=== PATIENT | female | born 1940 | race Caucasian/White ===

== ENCOUNTER 2018-06-02 11:02 | Inpatient (IN) | payer MEDICARE ==
[2018-06-02] MEDS ORDERED: KETOROLAC 30 MG/ML 1 ML VIAL IVP STA (11:25)
[2018-06-02] MEDS ORDERED: ACETAMINOPHEN IV (For NPO) 1,000 MG in EMPTY BAG 1 BAG IVPB STA (11:25)
[2018-06-02] MEDS ORDERED: SODIUM CHLORIDE 0.9% 1,000 ML IV STA ×2 (11:25→13:54)
--- NOTE | 2018-06-02 11:46 | ED ---
General Adult HPI - General Chief complaint: Weakness Stated complaint: Weakness Time Seen by Provider: 06/02/18 11:16 Source: patient, EMS, RN notes reviewed, old records reviewed Mode of arrival: EMS Limitations: physical limitation - History of Present Illness Initial comments: This is a 77-year-old female the ER for evaluation today. States she is presenting for evaluation of weakness, decreased activity level, decreased appetite. A she has complex medical history, coming in from extended care facility with mild assisted care. Patient's level of activity and daily activities is significantly diminished the last 2 days. Usually when she gets like this family is concerned about UTI as well as dehydration as well as patient's appetite. Patient himself denies any significant acute complaint or recent fevers - Related Data Home Medications Medication Instructions Recorded Confirmed ALPRAZolam [Xanax] 0.25 mg PO TID PRN 06/02/18 06/02/18 Acetaminophen Tab [Tylenol Tab] 650 mg PO Q6H PRN 06/02/18 06/02/18 Albuterol Inhaler [Ventolin Hfa 2 puff INHALATION RT-Q4H PRN 06/02/18 06/02/18 Inhaler] Ascorbic Acid [Vitamin C] 500 mg PO DAILY 06/02/18 06/02/18 Aspirin EC [Ecotrin Low Dose] 81 mg PO DAILY 06/02/18 06/02/18 Atorvastatin [Lipitor] 10 mg PO DAILY 06/02/18 06/02/18 Bisacodyl [Dulcolax] 10 mg RECTAL DAILY PRN 06/02/18 06/02/18 Calcium Carbonate [Tums Ultra 1,177 mg PO TID PRN 06/02/18 06/02/18 Strength] Cholecalciferol (Vitamin D3) 2,000 unit PO DAILY 06/02/18 06/02/18 [Vitamin D3] Diltiazem HCl [Diltiazem 12Hr ER] 60 mg PO Q12HR 06/02/18 06/02/18 Ferrous Gluconate 324 mg PO MOWEFR 06/02/18 06/02/18 Fluconazole [Diflucan] 150 mg PO TH 06/02/18 06/02/18 Furosemide [Lasix] 40 mg PO DAILY 06/02/18 06/02/18 HYDROcodone/APAP 5-325MG [[place] 1 tab PO Q6HR PRN 06/02/18 06/02/18 5-325] Insulin Glargine,Hum.rec.anlog 16 unit SQ DAILY 06/02/18 06/02/18 [Lantus Solostar] Insulin Lispro [humaLOG Kwikpen] See Protocol SQ ACHS 06/02/18 06/02/18 Ipratropium-Albuterol Nebulize 3 ml INHALATION RT-QID 06/02/18 06/02/18 [Duoneb 0.5 mg-3 mg/3 ml Soln] Magnesium Hydroxide [Milk of 2,400 mg PO DAILY PRN 06/02/18 06/02/18 Magnesia] Metoprolol Succinate (ER) [Toprol 50 mg PO DAILY 06/02/18 06/02/18 Xl] Nystatin 100,000Unit/gm Cream 1 applic TOPICAL BID PRN 06/02/18 06/02/18 [Mycostatin Cream] Pantoprazole Sodium [Protonix] 40 mg PO DAILY 06/02/18 06/02/18 Q-Tussin-Dm 10 ml PO Q4H PRN 06/02/18 06/02/18 Senexon-S 1 tab PO DAILY 06/02/18 06/02/18 Sertraline [Zoloft] 100 mg PO DAILY 06/02/18 06/02/18 Temazepam [Restoril] 15 mg PO HS PRN 06/02/18 06/02/18 Allergies Allergy/AdvReac Type Severity Reaction Status Date / Time Iodinated Contrast- Oral and Allergy Unknown Verified 06/02/18 11:55 IV Dye Penicillins Allergy Unknown Verified 06/02/18 11:55 vancomycin Allergy Unknown Verified 06/02/18 11:55 Review of Systems ROS Statement: Those systems with pertinent positive or pertinent negative responses have been documented in the HPI. ROS Other: All systems not noted in ROS Statement are negative. Past Medical History Past Medical History: Coronary Artery Disease (CAD), Diabetes Mellitus, Hyperlipidemia, Hypertension History of Any Multi-Drug Resistant Organisms: None Reported Past Surgical History: Orthopedic Surgery Additional Past Surgical History / Comment(s): kerwin eye surgery Past Psychological History: Anxiety, Depression Smoking Status: Former smoker Past Alcohol Use History: None Reported Past Drug Use History: None Reported General Exam Limitations: physical limitation General appearance: alert, in no apparent distress, obese Head exam: Present: atraumatic, normocephalic, normal inspection Eye exam: Present: normal appearance, PERRL, EOMI. Absent: scleral icterus, conjunctival injection, periorbital swelling ENT exam: Present: normal exam, mucous membranes moist Neck exam: Present: normal inspection. Absent: tenderness, meningismus, lymphadenopathy Respiratory exam: Present: normal lung sounds bilaterally. Absent: respiratory distress, wheezes, rales, rhonchi, stridor Cardiovascular Exam: Present: regular rate, normal rhythm, normal heart sounds. Absent: systolic murmur, diastolic murmur, rubs, gallop, clicks GI/Abdominal exam: Present: soft, normal bowel sounds. Absent: distended, tenderness, guarding, rebound, rigid Extremities exam: Present: normal inspection, full ROM, normal capillary refill. Absent: tenderness, pedal edema, joint swelling, calf tenderness Back exam: Present: normal inspection Neurological exam: Present: alert, oriented X3, CN II-XII intact Psychiatric exam: Present: normal affect, normal mood Skin exam: Present: warm, dry, intact, normal color. Absent: rash Course Vital Signs 06/02/18 06/02/18 06/02/18 11:11 11:21 12:14 Temperature 97.9 F Pulse Rate 60 59 L Respiratory 20 22 Rate Blood Pressure 121/67 122/62 O2 Sat by Pulse 88 L 95 97 Oximetry 06/02/18 13:00 Temperature 97.4 F L Pulse Rate 54 L Respiratory 18 Rate Blood Pressure 133/74 O2 Sat by Pulse 95 Oximetry EKG Findings - EKG Comments: EKG Findings:: EKG shows sinus bradycardia rate 55, HI 192, QRS 122, QTc 451 Medical Decision Making - Medical Decision Making 37 female the ER for evaluation, patient has positive UTI, positive weakness. Otherwise lab values are within normal limits. Patient will be admitted for IV hydration and IV antibiotics increase of activity and PT - Lab Data Result diagrams: 06/02/18 11:15 06/02/18 11:15 Lab Results 06/02/18 06/02/18 06/02/18 Range/Units 11:15 11:15 11:15 WBC 5.4 (3.8-10.6) k/uL RBC 4.29 (3.80-5.40) m/uL Hgb 11.3 L (11.4-16.0) gm/dL Hct 37.3 (34.0-46.0) % MCV 86.9 (80.0-100.0) fL MCH 26.3 (25.0-35.0) pg MCHC 30.3 L (31.0-37.0) g/dL RDW 15.4 (11.5-15.5) % Plt Count 202 (150-450) k/uL Neutrophils % 72 % Lymphocytes % 14 % Monocytes % 7 % Eosinophils % 4 % Basophils % 2 % Neutrophils # 3.9 (1.3-7.7) k/uL Lymphocytes # 0.8 L (1.0-4.8) k/uL Monocytes # 0.4 (0-1.0) k/uL Eosinophils # 0.2 (0-0.7) k/uL Basophils # 0.1 (0-0.2) k/uL Hypochromasia Marked PT (9.0-12.0) sec INR (<1.2) APTT (22.0-30.0) sec Sodium 139 (137-145) mmol/L Potassium 4.4 (3.5-5.1) mmol/L Chloride 106 (98-107) mmol/L Carbon Dioxide 28 (22-30) mmol/L Anion Gap 5 mmol/L BUN 32 H (7-17) mg/dL Creatinine 0.80 (0.52-1.04) mg/dL Est GFR (CKD-EPI)AfAm 82 (>60 ml/min/1.73 sqM) Est GFR (CKD-EPI)NonAf 72 (>60 ml/min/1.73 sqM) Glucose 186 H (74-99) mg/dL Calcium 9.1 (8.4-10.2) mg/dL Phosphorus 4.0 (2.5-4.5) mg/dL Magnesium 1.5 L (1.6-2.3) mg/dL Total Bilirubin 1.1 (0.2-1.3) mg/dL AST 38 H (14-36) U/L ALT 34 (9-52) U/L Alkaline Phosphatase 92 (38-126) U/L Total Creatine Kinase 136 H (30-135) U/L CK-MB (CK-2) 3.1 H* (0.0-2.4) ng/mL CK-MB (CK-2) Rel Index 2.3 Troponin I 0.043 H* (0.000-0.034) ng/mL Total Protein 6.2 L (6.3-8.2) g/dL Albumin 3.4 L (3.5-5.0) g/dL Urine Color Urine Appearance (Clear) Urine pH (5.0-8.0) Ur Specific [place] (1.001-1.035) Urine Protein (Negative) Urine Glucose (UA) (Negative) Urine Ketones (Negative) Urine Blood (Negative) Urine Nitrite (Negative) Urine Bilirubin (Negative) Urine Urobilinogen (<2.0) mg/dL Ur Leukocyte Esterase (Negative) Urine RBC (0-5) /hpf Urine WBC (0-5) /hpf Ur Squamous Epith Cells (0-4) /hpf Urine Mucus (None) /hpf Acetaminophen <10.0 ug/mL 06/02/18 06/02/18 Range/Units 11:15 11:49 WBC (3.8-10.6) k/uL RBC (3.80-5.40) m/uL Hgb (11.4-16.0) gm/dL Hct (34.0-46.0) % MCV (80.0-100.0) fL MCH (25.0-35.0) pg MCHC (31.0-37.0) g/dL RDW (11.5-15.5) % Plt Count (150-450) k/uL Neutrophils % % Lymphocytes % % Monocytes % % Eosinophils % % Basophils % % Neutrophils # (1.3-7.7) k/uL Lymphocytes # (1.0-4.8) k/uL Monocytes # (0-1.0) k/uL Eosinophils # (0-0.7) k/uL Basophils # (0-0.2) k/uL Hypochromasia PT 11.6 (9.0-12.0) sec INR 1.2 H (<1.2) APTT 22.9 (22.0-30.0) sec Sodium (137-145) mmol/L Potassium (3.5-5.1) mmol/L Chloride (98-107) mmol/L Carbon Dioxide (22-30) mmol/L Anion Gap mmol/L BUN (7-17) mg/dL Creatinine (0.52-1.04) mg/dL Est GFR (CKD-EPI)AfAm (>60 ml/min/1.73 sqM) Est GFR (CKD-EPI)NonAf (>60 ml/min/1.73 sqM) Glucose (74-99) mg/dL Calcium (8.4-10.2) mg/dL Phosphorus (2.5-4.5) mg/dL Magnesium (1.6-2.3) mg/dL Total Bilirubin (0.2-1.3) mg/dL AST (14-36) U/L ALT (9-52) U/L Alkaline Phosphatase (38-126) U/L Total Creatine Kinase (30-135) U/L CK-MB (CK-2) (0.0-2.4) ng/mL CK-MB (CK-2) Rel Index Troponin I (0.000-0.034) ng/mL Total Protein (6.3-8.2) g/dL Albumin (3.5-5.0) g/dL Urine Color Yellow Urine Appearance Clear (Clear) Urine pH 5.0 (5.0-8.0) Ur Specific [place] 1.008 (1.001-1.035) Urine Protein Negative (Negative) Urine Glucose (UA) Negative (Negative) Urine Ketones Negative (Negative) Urine Blood Negative (Negative) Urine Nitrite Positive H (Negative) Urine Bilirubin Negative (Negative) Urine Urobilinogen <2.0 (<2.0) mg/dL Ur Leukocyte Esterase Negative (Negative) Urine RBC 1 (0-5) /hpf Urine WBC <1 (0-5) /hpf Ur Squamous Epith Cells <1 (0-4) /hpf Urine Mucus Rare H (None) /hpf Acetaminophen ug/mL Disposition Clinical Impression: Dehydration, Weakness, UTI (urinary tract infection) Disposition: ADMITTED IP TO THIS HOSP Condition: Good Is patient prescribed a controlled substance at d/c from ED?: No
[2018-06-02 11:58] LABS: Basophils # (A) 0.1 k/uL (0-0.2); Basophils % (A) 2 %; Eosinophils # (A) 0.2 k/uL (0-0.7); Eosinophils % (A) 4 %; HCT 37.3 % (34.0-46.0); HGB 11.3 gm/dL (11.4-16.0); Hypochromasia Marked; Lymphocytes # (A) 0.8 k/uL (1.0-4.8); Lymphocytes % (A) 14 %; MCH 26.3 pg (25.0-35.0); MCHC 30.3 g/dL (31.0-37.0); MCV 86.9 fL (80.0-100.0); Mean Platelet Volume 7.9; Monocytes # (A) 0.4 k/uL (0-1.0); Monocytes % (A) 7 %; Neutrophils # (A) 3.9 k/uL (1.3-7.7); Neutrophils % (A) 72 %; Platelet Count 202 k/uL (150-450); RBC 4.29 m/uL (3.80-5.40); RDW 15.4 % (11.5-15.5); WBC 5.4 k/uL (3.8-10.6)
[2018-06-02 12:05] LABS: ALT 34 U/L (9-52); AST 38 U/L (14-36); Acetaminophen <10.0 ug/mL; Albumin 3.4 g/dL (3.5-5.0); Alkaline Phosphatase 92 U/L (38-126); Anion Gap 5 mmol/L; Blood Urea Nitrogen 32 mg/dL (7-17); Calcium 9.1 mg/dL (8.4-10.2); Carbon Dioxide 28 mmol/L (22-30); Chloride 106 mmol/L (98-107); Glucose 186 mg/dL (74-99); Magnesium 1.5 mg/dL (1.6-2.3); Potassium 4.4 mmol/L (3.5-5.1); Sodium 139 mmol/L (137-145); Total Bilirubin 1.1 mg/dL (0.2-1.3); Total Protein 6.2 g/dL (6.3-8.2)
[2018-06-02 12:24] LABS: INR 1.2 (<1.2); Partial Thromboplastin Time 22.9 sec (22.0-30.0); Prothrombin Time 11.6 sec (9.0-12.0)
[2018-06-02 12:25] LABS: Appearance,Urine Clear (Clear); Bilirubin,Urine Negative (Negative); Blood,Urine Negative (Negative); Color,Urine Yellow; Glucose,Urine (UA) Negative (Negative); Ketones,Urine Negative (Negative); Leukocyte Esterase,Urine Negative (Negative); Mucus,Urine Rare /hpf; Nitrite,Urine Positive (Negative); Protein,Urine Negative (Negative); RBC,Urine 1 /hpf (0-5); Specific Gravity,Urine 1.008 (1.001-1.035); Squamous Epithelial Cell,Urine <1 /hpf (0-4); Urobilinogen,Urine <2.0 mg/dL (<2.0); WBC,Urine <1 /hpf (0-5)
[2018-06-02 12:28] LABS: Creatine Kinase MB 3.1 ng/mL (0.0-2.4); Troponin I 0.043 ng/mL (0.000-0.034)
[2018-06-02] MEDS ORDERED: cefTRIAXone IN SWFI 1,000 MG/10 ML SYRINGE IVP STA (13:32)
[2018-06-02] MEDS ORDERED: ACETAMINOPHEN TAB 325 MG TAB PO PRN (14:39)
[2018-06-02] MEDS ORDERED: ONDANSETRON 4 MG/2 ML VIAL IVP PRN (14:39)
[2018-06-02] MEDS ORDERED: HYDROcodone/APAP 5-325MG 1 EACH TAB PO PRN (14:40)
[2018-06-02] MEDS ORDERED: CALCIUM CARBONATE 500 MG CHEWABLE PO PRN (14:40)
[2018-06-02] MEDS ORDERED: ALPRAZolam 0.25 MG TAB PO PRN (14:40)
[2018-06-02] MEDS ORDERED: NYSTATIN 100,000UNIT/GM CREAM 30 GM TUBE TOPICAL PRN (14:40)
[2018-06-02] MEDS ORDERED: Potassium Replacement Protocol 1 EACH MISC MISCELLANE PRN (14:45)
--- NOTE | 2018-06-02 14:53 | P.HPIM ---
History of Present Illness H&P Date: 06/02/18 Chief Complaint: Generalized weakness This is a 77-year-old female with complex past medical history noted below significant for morbid obesity who presented to the emergency room from a local assisted living facility with progressive weakness. Over the last few days, patient has been feeling progressively weak. She usually needs assistance with transfer from her bed to the chair. Yesterday one person assist was not enough and this morning patient requires 2 people assist as well. She was sent to the emergency room for further evaluation. Patient does not have any specific concerns otherwise. There is no neurological focal deficits. No headache or chest pain. No shortness of breath. She is just feeling generally weak. No fevers or chills. No abdominal pain. No urinary symptoms. Patient was evaluated in the emergency room and her lab work was generally within acceptable range. She was noted to be slightly bradycardic with a heart rate in the 50s and sinus bradycardia. She was also noted to have a mildly elevated troponin. Patient herself denies any chest pain or shortness of breath. 12- lead ECG showed no acute ischemic changes. Urinalysis show some evidence of infection but patient is incontinent. Review of Systems Review of system: 14 points review of systems were obtained and were negative except to what were mentioned in the HPI. Past Medical History Past Medical History: Coronary Artery Disease (CAD), Diabetes Mellitus, Hyperlipidemia, Hypertension History of Any Multi-Drug Resistant Organisms: None Reported Past Surgical History: Orthopedic Surgery Additional Past Surgical History / Comment(s): kerwin eye surgery Past Psychological History: Anxiety, Depression Smoking Status: Former smoker Past Alcohol Use History: None Reported Past Drug Use History: None Reported Medications and Allergies Home Medications Medication Instructions Recorded Confirmed Type ALPRAZolam [Xanax] 0.25 mg PO TID PRN 06/02/18 06/02/18 History Acetaminophen Tab [Tylenol Tab] 650 mg PO Q6H PRN 06/02/18 06/02/18 History Albuterol Inhaler [Ventolin Hfa 2 puff INHALATION RT-Q4H PRN 06/02/18 06/02/18 History Inhaler] Ascorbic Acid [Vitamin C] 500 mg PO DAILY 06/02/18 06/02/18 History Aspirin EC [Ecotrin Low Dose] 81 mg PO DAILY 06/02/18 06/02/18 History Atorvastatin [Lipitor] 10 mg PO DAILY 06/02/18 06/02/18 History Bisacodyl [Dulcolax] 10 mg RECTAL DAILY PRN 06/02/18 06/02/18 History Calcium Carbonate [Tums Ultra 1,177 mg PO TID PRN 06/02/18 06/02/18 History Strength] Cholecalciferol (Vitamin D3) 2,000 unit PO DAILY 06/02/18 06/02/18 History [Vitamin D3] Diltiazem HCl [Diltiazem 12Hr ER] 60 mg PO Q12HR 06/02/18 06/02/18 History Ferrous Gluconate 324 mg PO MOWEFR 06/02/18 06/02/18 History Fluconazole [Diflucan] 150 mg PO TH 06/02/18 06/02/18 History Furosemide [Lasix] 40 mg PO DAILY 06/02/18 06/02/18 History HYDROcodone/APAP 5-325MG [[place] 1 tab PO Q6HR PRN 06/02/18 06/02/18 History 5-325] Insulin Glargine,Hum.rec.anlog 16 unit SQ DAILY 06/02/18 06/02/18 History [Lantus Solostar] Insulin Lispro [humaLOG Kwikpen] See Protocol SQ ACHS 06/02/18 06/02/18 History Ipratropium-Albuterol Nebulize 3 ml INHALATION RT-QID 06/02/18 06/02/18 History [Duoneb 0.5 mg-3 mg/3 ml Soln] Magnesium Hydroxide [Milk of 2,400 mg PO DAILY PRN 06/02/18 06/02/18 History Magnesia] Metoprolol Succinate (ER) [Toprol 50 mg PO DAILY 06/02/18 06/02/18 History Xl] Nystatin 100,000Unit/gm Cream 1 applic TOPICAL BID PRN 06/02/18 06/02/18 History [Mycostatin Cream] Pantoprazole Sodium [Protonix] 40 mg PO DAILY 06/02/18 06/02/18 History Q-Tussin-Dm 10 ml PO Q4H PRN 06/02/18 06/02/18 History Senexon-S 1 tab PO DAILY 06/02/18 06/02/18 History Sertraline [Zoloft] 100 mg PO DAILY 06/02/18 06/02/18 History Temazepam [Restoril] 15 mg PO HS PRN 06/02/18 06/02/18 History Allergies Allergy/AdvReac Type Severity Reaction Status Date / Time Iodinated Contrast- Oral and Allergy Unknown Verified 06/02/18 11:55 IV Dye Penicillins Allergy Unknown Verified 06/02/18 11:55 vancomycin Allergy Unknown Verified 06/02/18 11:55 Physical Exam Vitals: Vital Signs Temp Pulse Resp BP Pulse Ox 06/02/18 13:00 97.4 F L 54 L 18 133/74 95 06/02/18 12:14 59 L 22 122/62 97 06/02/18 11:21 95 06/02/18 11:11 97.9 F 60 20 121/67 88 L Intake and Output 06/01/18 06/02/18 06/02/18 22:59 06:59 14:59 Other: Weight 113.398 kg General: The patient is awake and alert, in no distress Eye: there is normal conjunctiva bilaterally. Neck: The neck is supple, there is no JVD. Cardiovascular: Heart sounds are distant. Normal S1-S2, no S3-S4, no murmurs. Respiratory: Lungs clear to anterior chest auscultation bilaterally Gastrointestinal: Abdomen is very obese, soft, nontender Musculoskeletal: There is no pedal edema. Neurological:. Speech is normal. Skin: Skin is warm and dry. There is evidence of chronic venous stasis on both legs with area of worsening erythema and a small ulceration on the anterior aspect of the left mid chin. There is no drainage or pus noted. Results CBC & Chem 7: 06/02/18 11:15 06/02/18 11:15 Labs: Abnormal Lab Results - Last 24 Hours (Table) 06/02/18 06/02/18 06/02/18 Range/Units 11:15 11:15 11:15 Hgb 11.3 L (11.4-16.0) gm/dL MCHC 30.3 L (31.0-37.0) g/dL Lymphocytes # 0.8 L (1.0-4.8) k/uL INR (<1.2) BUN 32 H (7-17) mg/dL Glucose 186 H (74-99) mg/dL Magnesium 1.5 L (1.6-2.3) mg/dL AST 38 H (14-36) U/L Total Creatine Kinase 136 H (30-135) U/L CK-MB (CK-2) 3.1 H* (0.0-2.4) ng/mL Troponin I 0.043 H* (0.000-0.034) ng/mL Total Protein 6.2 L (6.3-8.2) g/dL Albumin 3.4 L (3.5-5.0) g/dL Urine Nitrite (Negative) Urine Mucus (None) /hpf 06/02/18 06/02/18 Range/Units 11:15 11:49 Hgb (11.4-16.0) gm/dL MCHC (31.0-37.0) g/dL Lymphocytes # (1.0-4.8) k/uL INR 1.2 H (<1.2) BUN (7-17) mg/dL Glucose (74-99) mg/dL Magnesium (1.6-2.3) mg/dL AST (14-36) U/L Total Creatine Kinase (30-135) U/L CK-MB (CK-2) (0.0-2.4) ng/mL Troponin I (0.000-0.034) ng/mL Total Protein (6.3-8.2) g/dL Albumin (3.5-5.0) g/dL Urine Nitrite Positive H (Negative) Urine Mucus Rare H (None) /hpf Assessment and Plan Assessment: 1. Sinus bradycardia, may be attributed to Cardizem and Toprol-XL use. I would decrease her Toprol-XL dose from 50-25 mg daily. I would continue telemetry monitoring. We will check thyroid function tests. 2. Elevated troponin: Most likely non-thrombotic troponin leak. Patient denies any chest pain. 12-lead ECG showed no acute ischemic changes. I would obtain repeat troponin. I would order echocardiogram. Consult cardiology for further evaluation. Continue telemetry monitoring. Patient sister informed me that patient had underlying coronary artery disease but no prior left heart catheterization. She was seen by cardiology at [facility] previously 3. Non-complicated urinary tract infection, given 1 dose of IV ceftriaxone in the emergency room. Antibiotic switched to IV cefazolin. Awaiting urine culture. 4. Bilateral lower extremity cellulitis/chronic venous stasis: Continue IV cefazolin. Infectious disease consulted for further evaluation and recommendations 5. Type II diabetes mellitus, continue home dose of insulin. Add sliding scale. A1c ordered 6. Morbid obesity 7. Mixed hyperlipidemia on Lipitor 8. Generalized anxiety disorder, maintained on Xanax 3 times a day. I would discontinue nighttime off Restoril 9. Major depressive disorder: Continue home medication 10. Physical debility, PT/OT/high school social science teacher consulted. Patient may benefit from subacute rehab
[2018-06-02 15:48] LABS: Glucose,Whole Blood 151 mg/dL (75-99)
--- NOTE | 2018-06-02 17:21 | ECHOF ---
Referral Reason:Elevated troponin, lower extremity edema MEASUREMENTS -------- HEIGHT: 162.6 cm WEIGHT: 113.4 kg BP: 133/74 RVIDd: 3.7 cm (< 3.3) IVSd: 1.3 cm (0.6 - 1.1) LVIDd: 4.9 cm (3.9 - 5.3) LVPWd: 1.3 cm (0.6 - 1.1) IVSs: 1.9 cm LVIDs: 3.5 cm LVPWs: 1.9 cm LA Diam: 4.1 cm (2.7 - 3.8) LAESV Index (A-L): 55.23 ml/m Ao Diam: 3.1 cm (2.0 - 3.7) AV Cusp: 1.3 cm (1.5 - 2.6) MV EXCURSION: 18.807 mm (> 18.000) MV EF SLOPE: 44 mm/s (70 - 150) EPSS: 0.2 cm MV E Daniel: 1.67 m/s MV DecT: 225 ms MV A Daniel: 0.89 m/s MV E/A Ratio: 1.87 AV maxP.27 mmHg AV meanP.64 mmHg RAP: 15.00 mmHg RVSP: 78.55 mmHg FINDINGS -------- Sinus rhythm. This was a technically adequate study. The left ventricular size is normal. There is mild concentric left ventricular hypertrophy. Overa ll left ventricular systolic function is normal with, an EF between 55 - 60 %. The right ventricle is mildly enlarged. LA is severely dilated >40 ml/m2 The right atrium is normal in size. There is moderate to severe aortic valve sclerosis. Trace to mild aortic regurgitation. There is mild aortic stenosis present. Peak/mean gradient across the Aortic Valve is 25.27mmHg / 12.64mmHg. The mitral valve leaflets are moderately thickened. Severe mitral annular calcification present. Moderate mitral regurgitation is present. The peak and mean MV gradients are 13.43mmHg 3.55mmHg as measured by doppler. Severe tricuspid regurgitation present. There is severe pulmonary hypertension. The right ventric ular systolic pressure, as measured by Doppler, is 78.55mmHg. Moderate pulmonic regurgitation. The aortic root size is normal. The inferior vena cava is dilated with no significant inspiratory collapse which is consistent estima william right atrial pressure of >15 mmHg. There is no pericardial effusion. CONCLUSIONS -------- 1. Sinus rhythm. 2. This was a technically adequate study. 3. The left ventricular size is normal. 4. There is mild concentric left ventricular hypertrophy. 5. Overall left ventricular systolic function is normal with, an EF between 55 - 60 %. 6. The right ventricle is mildly enlarged. 7. LA is severely dilated >40 ml/m2 8. The right atrium is normal in size. 9. There is moderate to severe aortic valve sclerosis. 10. Trace to mild aortic regurgitation. 11. There is mild aortic stenosis present. 12. Peak/mean gradient across the Aortic Valve is 25.27mmHg / 12.64mmHg. 13. The mitral valve leaflets are moderately thickened. 14. Severe mitral annular calcification present. 15. Moderate mitral regurgitation is present. 16. The peak and mean MV gradients are 13.43mmHg 3.55mmHg as measured by doppler. 17. Severe tricuspid regurgitation present. 18. There is severe pulmonary hypertension. 19. The right ventricular systolic pressure, as measured by Doppler, is 78.55mmHg. 20. Moderate pulmonic regurgitation. 21. The aortic root size is normal. 22. The inferior vena cava is dilated with no significant inspiratory collapse which is consistent es timated right atrial pressure of >15 mmHg. 23. There is no pericardial effusion. 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
[2018-06-02] MEDS: INSULIN ASPART 100 UNIT/ML 1 ML 10 ML VIAL SQ SCH ×2 (18:43→21:40)
[2018-06-02] MEDS: IPRATROPIUM-ALBUTEROL 3 ML NEB INHALATION SCH ×2 (20:01→20:05)
--- NOTE | 2018-06-02 20:40 | CONS ---
CONSULTATION DATE OF SERVICE: 06/02/2018. REASON FOR CONSULTATION: 1. UTI. 2. Left leg wound cellulitis. 3. Antibiotic allergy. HISTORY OF PRESENT ILLNESS: The patient is a 77-year-old female who was brought in to the ER at [facility] with chief complaints of not feeling well, feeling run down and thought she may have a urinary tract infection, as the patient has some burning of urine, but no significant frequency, suprapubic discomfort, any the flank pain, nausea or vomiting. The patient also has been scratching her left leg and has led to some superficial ulceration. Did have minimal drainage and pain at that left leg site, more of a dull aching pain, 2/10-3/10 and no radiation. With these symptoms, the patient has been evaluated by the ER physician. On arrival to the ER, the patient has been afebrile. She noticed to have a normal white count. Urine was mildly positive for nitrate positive, rare WBC. No chest x-ray has been done. The patient has been admitted to hospital to monitor her condition. The patient started on cefazolin 2 g q.12 and Infectious Disease was consulted for further recommendation of antibiotic therapy. The patient did receive a dose of Rocephin in the ER as well, though. REVIEW OF SYSTEMS: CONSTITUTIONALLY: Positive for weakness. Denies any high-grade fever. EYES: No complaint. ENT: No complaint. RESPIRATORY: No complaint. CARDIOVASCULAR: No complaint. GENITOURINARY: As per HPI. GASTROINTESTINAL: No complaint. MUSCULOSKELETAL: No complaint. INTEGUMENTARY: As per HPI. PSYCHOLOGICAL: No complaint. ENDOCRINE: No complaint. NEUROLOGIC: No complaint. PAST MEDICAL HISTORY: Hypertension, hyperlipidemia, diabetes mellitus, coronary artery disease, anxiety, depression. PAST SURGICAL HISTORY: Bilateral eye surgery. SOCIAL HISTORY: Remote history of smoking. No drinking or drug use. FAMILY HISTORY: No pertinent findings noticed. ALLERGIES: To PENICILLIN; however, Rocephin is not any problem. Also allergic to VANCOMYCIN and IODINATED CONTRAST DYE. MEDICATIONS: Include the patient is currently on: 1. Zoloft. 2. Protonix. 3. Zofran. 4. Nystatin cream. 5. Toprol-XL. 6. Levemir. 7. NovoLog. 8. Lasix. 9. Lovenox. 10.Cefazolin 2 g q.12. 11.Tums. 12.Lipitor. 13.Aspirin. 14.Xanax. 15.DuoNeb. 16.[place]. 17.Tylenol. EXAMINATION: Her blood pressure was 60/72 with a pulse of 80, temperature is 97.4. She is 98% on 3L nasal cannula. General description is an elderly female lying in bed in no distress. No tachypnea or accessory muscle of respiration use. HEENT shows slight pallor. No scleral icterus. Oral mucous membranes dry. No pharyngeal erythema or thrush. NECK: Trachea central. No thyromegaly. LUNGS: Unlabored breathing. Clear to auscultation anteriorly. No wheeze or crackle. HEART: S1, S2. Regular rate and rhythm. ABDOMEN: Soft, no tenderness. No guarding or rigidity. EXTREMITIES: Left leg with minimal erythema with a pressure heel ulceration and drainage on the dressing. No foul smelling. SKIN: No rash or mass palpable. Neurologically, the patient is awake, alert, oriented x3. Mood and affect normal. LABS: Hemoglobin 11.8, white count of 5.4. BUN of 32, creatinine 0.80. Electrolytes have been normal. Liver enzymes are normal. Troponin slightly elevated. Urine shows nitrite positive only. DIAGNOSTIC IMPRESSION AND PLAN: 1. Patient admitted to hospital with generalized weakness, which is likely multifactorial in this patient who did have urinary symptoms of burning; however, the urine is not significantly positive. The patient also has superficial ulceration with minimal cellulitis not entirely excluded, likely from a gram- positive skin adrien. 2. The patient does have multiple antibiotic allergies that does limit the number of antibiotics that could be safely used. She did have history of PENICILLIN; however, tolerated Rocephin without any problem. PLAN: 1. Will keep the patient on cefazolin; however, change the dose to every 8 hours in view of her normal kidney function. 2. Frederic the area of redness on the left leg. 3. Depending upon clinical response as well as culture, will adjust her medications further if needed. Thank you for this consultation. Will follow this patient along with you. MMODL / IJN: [id number] /
[2018-06-02 20:52] LABS: Glucose,Whole Blood 175 mg/dL (75-99)
[2018-06-02] MEDS ORDERED: ceFAZolin IN SWFI 2 GM/20 ML SYRINGE IVP SCH (21:00)
[2018-06-02] MEDS: DILTIAZEM HCL PO SCH (21:43)
[2018-06-03 06:01] LABS: Glucose,Whole Blood 124 mg/dL (75-99)
[2018-06-03] MEDS: INSULIN ASPART 100 UNIT/ML 1 ML 10 ML VIAL SQ SCH ×4 (06:21→21:09)
[2018-06-03] MEDS: PANTOPRAZOLE 40 MG TABLET PO SCH (06:34)
[2018-06-03 07:19] LABS: Basophils # (A) 0.1 k/uL (0-0.2); Basophils % (A) 1 %; Eosinophils # (A) 0.3 k/uL (0-0.7); Eosinophils % (A) 6 %; HCT 38.5 % (34.0-46.0); HGB 11.2 gm/dL (11.4-16.0); Hypochromasia Marked; Lymphocytes % (A) 20 %; MCH 25.5 pg (25.0-35.0); MCHC 29.1 g/dL (31.0-37.0); MCV 87.5 fL (80.0-100.0); Mean Platelet Volume 7.8; Monocytes # (A) 0.4 k/uL (0-1.0); Monocytes % (A) 8 %; Neutrophils % (A) 63 %; Platelet Count 188 k/uL (150-450); RDW 15.3 % (11.5-15.5); WBC 4.8 k/uL (3.8-10.6)
[2018-06-03 07:36] LABS: Calcium 8.9 mg/dL (8.4-10.2); Magnesium 1.5 mg/dL (1.6-2.3); Potassium 4.4 mmol/L (3.5-5.1)
[2018-06-03 08:23] LABS: Glucose,Whole Blood 137 mg/dL (75-99)
[2018-06-03] MEDS ORDERED: cefTRIAXone IN SWFI 1,000 MG/10 ML SYRINGE IVP SCH (09:00)
[2018-06-03] MEDS: CHOLECALCIFEROL 1,000 UNIT TAB PO SCH (09:17)
[2018-06-03] MEDS: ASPIRIN 81 MG PO SCH (09:17)
[2018-06-03] MEDS: ceFAZolin IN SWFI 2 GM/20 ML SYRINGE IVP SCH ×3 (09:17→23:22)
[2018-06-03] MEDS: ATORVASTATIN 10 MG TAB PO SCH (09:17)
[2018-06-03] MEDS: ASCORBIC ACID 500 MG TAB PO SCH (09:17)
[2018-06-03] MEDS: SERTRALINE 100 MG TAB PO SCH (09:18)
[2018-06-03] MEDS: ENOXAPARIN 40 MG/0.4 ML SYRINGE SQ SCH (09:18)
[2018-06-03] MEDS: FUROSEMIDE 40 MG TAB PO SCH (09:18)
[2018-06-03] MEDS: INSULIN DETEMIR 100 UNIT/ML 10 ML VIAL SQ SCH (09:20)
[2018-06-03] MEDS: IPRATROPIUM-ALBUTEROL 3 ML NEB INHALATION SCH ×4 (09:39→19:28)
--- NOTE | 2018-06-03 10:39 | P.PN ---
Subjective Progress Note Date: 06/03/18 Principal diagnosis: UTI and bradycardia Patient is doing a lot better today. Her mentation is back to baseline. No acute events overnight. Objective - Vital Signs Vital signs: Vital Signs Temp 97.7 F 06/03/18 09:15 Pulse 60 06/03/18 09:49 Resp 18 06/03/18 09:15 BP 130/73 06/03/18 09:15 Pulse Ox 97 06/03/18 09:15 Intake & Output 06/02/18 06/03/18 06/03/18 18:59 06:59 18:59 Intake Total 1000 240 Balance 1000 240 Weight 113.398 kg 121 kg Intake: Amount of Fluid Infused ( 1000 ml) Oral 240 Other: # Voids 1 - Exam General: The patient is awake and alert, in no distress Eye: there is normal conjunctiva bilaterally. Neck: The neck is supple, there is no JVD. Cardiovascular: Normal S1-S2, no S3-S4, no murmurs. Respiratory: Lungs clear to auscultation bilaterally Gastrointestinal: Abdomen is soft, nontender Neurological:. Speech is normal. Skin: Skin is warm and dry - Labs CBC & Chem 7: 06/03/18 06:59 06/03/18 06:59 Labs: Abnormal Lab Results - Last 24 Hours (Table) 06/02/18 06/02/18 06/02/18 Range/Units 11:15 11:15 11:15 Hgb 11.3 L (11.4-16.0) gm/dL MCHC 30.3 L (31.0-37.0) g/dL Lymphocytes # 0.8 L (1.0-4.8) k/uL INR (<1.2) Chloride (98-107) mmol/L BUN 32 H (7-17) mg/dL Glucose 186 H (74-99) mg/dL POC Glucose (mg/dL) (75-99) mg/dL Magnesium 1.5 L (1.6-2.3) mg/dL AST 38 H (14-36) U/L Total Creatine Kinase 136 H (30-135) U/L CK-MB (CK-2) 3.1 H* (0.0-2.4) ng/mL Troponin I 0.043 H* (0.000-0.034) ng/mL Total Protein 6.2 L (6.3-8.2) g/dL Albumin 3.4 L (3.5-5.0) g/dL Urine Nitrite (Negative) Urine Mucus (None) /hpf 06/02/18 06/02/18 06/02/18 Range/Units 11:15 11:49 15:47 Hgb (11.4-16.0) gm/dL MCHC (31.0-37.0) g/dL Lymphocytes # (1.0-4.8) k/uL INR 1.2 H (<1.2) Chloride (98-107) mmol/L BUN (7-17) mg/dL Glucose (74-99) mg/dL POC Glucose (mg/dL) 151 H (75-99) mg/dL Magnesium (1.6-2.3) mg/dL AST (14-36) U/L Total Creatine Kinase (30-135) U/L CK-MB (CK-2) (0.0-2.4) ng/mL Troponin I (0.000-0.034) ng/mL Total Protein (6.3-8.2) g/dL Albumin (3.5-5.0) g/dL Urine Nitrite Positive H (Negative) Urine Mucus Rare H (None) /hpf 06/02/18 06/02/18 06/03/18 Range/Units 17:28 20:48 05:59 Hgb (11.4-16.0) gm/dL MCHC (31.0-37.0) g/dL Lymphocytes # (1.0-4.8) k/uL INR (<1.2) Chloride (98-107) mmol/L BUN (7-17) mg/dL Glucose (74-99) mg/dL POC Glucose (mg/dL) 175 H 124 H (75-99) mg/dL Magnesium (1.6-2.3) mg/dL AST (14-36) U/L Total Creatine Kinase (30-135) U/L CK-MB (CK-2) (0.0-2.4) ng/mL Troponin I 0.049 H* (0.000-0.034) ng/mL Total Protein (6.3-8.2) g/dL Albumin (3.5-5.0) g/dL Urine Nitrite (Negative) Urine Mucus (None) /hpf 06/03/18 06/03/18 06/03/18 Range/Units 06:59 06:59 08:04 Hgb 11.2 L (11.4-16.0) gm/dL MCHC 29.1 L (31.0-37.0) g/dL Lymphocytes # (1.0-4.8) k/uL INR (<1.2) Chloride 109 H (98-107) mmol/L BUN 33 H (7-17) mg/dL Glucose 112 H (74-99) mg/dL POC Glucose (mg/dL) 137 H (75-99) mg/dL Magnesium 1.5 L (1.6-2.3) mg/dL AST (14-36) U/L Total Creatine Kinase (30-135) U/L CK-MB (CK-2) (0.0-2.4) ng/mL Troponin I (0.000-0.034) ng/mL Total Protein (6.3-8.2) g/dL Albumin (3.5-5.0) g/dL Urine Nitrite (Negative) Urine Mucus (None) /hpf Microbiology - Last 24 Hours (Table) 06/02/18 11:49 Urine Culture - Preliminary Urine,Catheterized Assessment and Plan Assessment: 1. Sinus bradycardia, may be attributed to Cardizem and Toprol-XL use. I decreased her Toprol-XL dose from 50-25 mg daily. I would continue telemetry monitoring. Thyroid function test checked and normal. Awaiting cardiology evaluation. 2. Elevated troponin: Most likely non-thrombotic troponin leak. Patient denies any chest pain. 12-lead ECG showed no acute ischemic changes. Echocardiogram showed preserved ejection fraction and no significant valvular abnormalities. 3. Non-complicated urinary tract infection, given 1 dose of IV ceftriaxone in the emergency room. Antibiotic switched to IV cefazolin. Awaiting urine culture. 4. Bilateral lower extremity cellulitis/chronic venous stasis: Continue IV cefazolin. Infectious disease consulted following 5. Severe pulmonary hypertension, severe tricuspid regurgitation, moderate mitral valve regurgitation, noted on echocardiogram of the heart: Patient follow -up closely with her own relationship specialist in [facility]. Advised to follow- up as an outpatient. 6. Morbid obesity 7. Mixed hyperlipidemia on Lipitor 8. Generalized anxiety disorder, maintained on Xanax 3 times a day. I would discontinue nighttime Restoril 9. Major depressive disorder: Continue home medication 10. Physical debility, PT/OT/licensed social worker consulted. Patient may benefit from subacute rehab 11. Type II diabetes mellitus, continue home dose of insulin. Add sliding scale. A1c ordered 12. Obstructive sleep apnea on CPAP at home. Awaiting patient's family to bring her device Plan for today: -Awaiting cardiology evaluation -Awaiting PT/OT/licensed social worker evaluation patient may benefit from placement on Tuesday -Repeat lab work in the morning
[2018-06-03] MEDS: METOPROLOL SUCCINATE (ER) 25 MG TAB.ER.24H PO SCH (11:48)
[2018-06-03 11:49] LABS: Glucose,Whole Blood 124 mg/dL (75-99)
--- NOTE | 2018-06-03 12:26 | P.CRDCN ---
History of Present Illness Consult date: 06/03/18 Requesting physician: Mei Barker Reason for Consult (text): elevated troponin Chief complaint: progressively worsening weakness History of present illness: This is a pleasant 77-year-old female patient who resides in an extended care facility. She is a poor historian with forgetfulness and mild confusion noted. Most of the HPI was obtained from the chart. She has a past medical history significant for CAD which she follows with a childcare provider in [place], diabetes , hyperlipidemia, hypertension, anxiety and depression. She presented to the emergency department brought in by her family due to worsening weakness diminishment of her usual everyday activities. She denied complaints of chest discomfort, palpitations, shortness of breath, nausea or syncope. She also complains of lower extremity edema. EKG on admission showed sinus bradycardia with occasional PVCs. Echocardiogram showed normal LV systolic function with an ejection fraction between 55-60%, mildly enlarged RV, moderate to severe aortic valve sclerosis, trace to mild aortic regurgitation and mild aortic stenosis. Also showed moderate MR, severe TR and severe pulmonary hypertension. We were consulted to see the patient because of mild elevation in troponins of 0.043 and 0.049. Her vital signs of been stable. Upon examination, patient is resting currently in bed. She does verbalize being forgetful with some confusion at times. She denies complaints of significant weakness at this time. Past Medical History Past Medical History: Atrial Fibrillation, Coronary Artery Disease (CAD), Diabetes Mellitus, GERD/Reflux, Hyperlipidemia, Hypertension, Osteoarthritis (OA ), Pneumonia, Sleep Apnea/CPAP/BIPAP Additional Past Medical History / Comment(s): home 02 3 liters atc,lt lower leg wound History of Any Multi-Drug Resistant Organisms: None Reported Past Surgical History: Orthopedic Surgery, Tonsillectomy Additional Past Surgical History / Comment(s): kerwin cataracts removed has lens implants, kerwin knee replacments Past Anesthesia/Blood Transfusion Reactions: Motion Sickness Additional Past Anesthesia/Blood Transfusion Reaction / Comment(s): clausterphobia Smoking Status: Former smoker - Past Family History Father Family Medical History: Coronary Artery Disease (CAD) Additional Family Medical History / Comment(s): enlarged heart Mother Family Medical History: Dementia, Hypertension Additional Family Medical History / Comment(s): hysterectomy-d/t benign tumor Medications and Allergies Home Medications Medication Instructions Recorded Confirmed Type ALPRAZolam [Xanax] 0.25 mg PO TID PRN 06/02/18 06/02/18 History Acetaminophen Tab [Tylenol Tab] 650 mg PO Q6H PRN 06/02/18 06/02/18 History Albuterol Inhaler [Ventolin Hfa 2 puff INHALATION RT-Q4H PRN 06/02/18 06/02/18 History Inhaler] Ascorbic Acid [Vitamin C] 500 mg PO DAILY 06/02/18 06/02/18 History Aspirin EC [Ecotrin Low Dose] 81 mg PO DAILY 06/02/18 06/02/18 History Atorvastatin [Lipitor] 10 mg PO DAILY 06/02/18 06/02/18 History Bisacodyl [Dulcolax] 10 mg RECTAL DAILY PRN 06/02/18 06/02/18 History Calcium Carbonate [Tums Ultra 1,177 mg PO TID PRN 06/02/18 06/02/18 History Strength] Cholecalciferol (Vitamin D3) 2,000 unit PO DAILY 06/02/18 06/02/18 History [Vitamin D3] Diltiazem HCl [Diltiazem 12Hr ER] 60 mg PO Q12HR 06/02/18 06/02/18 History Ferrous Gluconate 324 mg PO MOWEFR 06/02/18 06/02/18 History Fluconazole [Diflucan] 150 mg PO TH 06/02/18 06/02/18 History Furosemide [Lasix] 40 mg PO DAILY 06/02/18 06/02/18 History HYDROcodone/APAP 5-325MG [[place] 1 tab PO Q6HR PRN 06/02/18 06/02/18 History 5-325] Insulin Glargine,Hum.rec.anlog 16 unit SQ DAILY 06/02/18 06/02/18 History [Lantus Solostar] Insulin Lispro [humaLOG Kwikpen] See Protocol SQ ACHS 06/02/18 06/02/18 History Ipratropium-Albuterol Nebulize 3 ml INHALATION RT-QID 06/02/18 06/02/18 History [Duoneb 0.5 mg-3 mg/3 ml Soln] Magnesium Hydroxide [Milk of 2,400 mg PO DAILY PRN 06/02/18 06/02/18 History Magnesia] Metoprolol Succinate (ER) [Toprol 50 mg PO DAILY 06/02/18 06/02/18 History Xl] Nystatin 100,000Unit/gm Cream 1 applic TOPICAL BID PRN 06/02/18 06/02/18 History [Mycostatin Cream] Pantoprazole Sodium [Protonix] 40 mg PO DAILY 06/02/18 06/02/18 History Q-Tussin-Dm 10 ml PO Q4H PRN 06/02/18 06/02/18 History Senexon-S 1 tab PO DAILY 06/02/18 06/02/18 History Sertraline [Zoloft] 100 mg PO DAILY 06/02/18 06/02/18 History Temazepam [Restoril] 15 mg PO HS PRN 06/02/18 06/02/18 History Allergies Allergy/AdvReac Type Severity Reaction Status Date / Time Iodinated Contrast- Oral and Allergy Unknown Verified 06/02/18 11:55 IV Dye Penicillins Allergy Unknown Verified 06/02/18 11:55 vancomycin Allergy Unknown Verified 06/02/18 11:55 Physical Exam Vitals: Vital Signs Temp Pulse Pulse Resp BP BP Pulse Ox 06/03/18 09:49 60 06/03/18 09:39 60 06/03/18 09:15 97.7 F 58 L 18 130/73 97 06/03/18 03:00 97.4 F L 60 18 136/60 97 06/02/18 23:20 98.3 F 52 L 18 129/56 97 06/02/18 20:17 42 L 06/02/18 20:05 45 L 06/02/18 20:00 97.0 F L 60 18 159/71 96 06/02/18 19:26 18 06/02/18 19:24 98.5 F 75 18 160/55 95 06/02/18 17:04 97.2 F L 58 L 18 147/83 95 06/02/18 15:00 58 L 18 161/72 98 06/02/18 13:00 97.4 F L 54 L 18 133/74 95 06/02/18 12:14 59 L 22 122/62 97 06/02/18 11:21 95 06/02/18 11:11 97.9 F 60 20 121/67 88 L Intake and Output 06/02/18 06/03/18 06/03/18 22:59 06:59 14:59 Intake Total 1000 240 Balance 1000 240 Intake: Amount of Fluid Infused ( 1000 ml) Oral 240 Other: # Voids 1 1 Weight 121 kg PHYSICAL EXAMINATION: HEENT: Head is atraumatic, normocephalic. Pupils equal, round. Neck is supple. There is no elevated jugular venous pressure. HEART EXAMINATION: Heart sounds regular, S1 and S2 with a systolic murmur. CHEST EXAMINATION: Lungs reveal diminished air entry bilaterally. No chest wall tenderness is noted on palpation or with deep breathing. ABDOMEN: Soft, obese, nontender. Bowel sounds are heard. No organomegaly noted. EXTREMITIES: 1+ peripheral pulses with evidence of 1+ peripheral edema and no calf tenderness noted. Erythema noted bilaterally. NEUROLOGIC patient is awake, alert and oriented x2-3. Memory loss and mild confusion noted . Results 06/03/18 06:59 06/03/18 06:59 Cardiac Enzymes 06/02/18 06/02/18 06/02/18 Range/Units 11:15 11:15 17:28 AST 38 H (14-36) U/L CK-MB (CK-2) 3.1 H* (0.0-2.4) ng/mL Troponin I 0.043 H* 0.049 H* (0.000-0.034) ng/mL Coagulation 06/02/18 Range/Units 11:15 PT 11.6 (9.0-12.0) sec APTT 22.9 (22.0-30.0) sec CBC 06/02/18 06/03/18 Range/Units 11:15 06:59 WBC 5.4 4.8 (3.8-10.6) k/uL RBC 4.29 4.40 (3.80-5.40) m/uL Hgb 11.3 L 11.2 L (11.4-16.0) gm/dL Hct 37.3 38.5 (34.0-46.0) % Plt Count 202 188 (150-450) k/uL Comprehensive Metabolic Panel 06/02/18 06/03/18 Range/Units 11:15 06:59 Sodium 139 142 (137-145) mmol/L Potassium 4.4 4.4 (3.5-5.1) mmol/L Chloride 106 109 H (98-107) mmol/L Carbon Dioxide 28 24 (22-30) mmol/L BUN 32 H 33 H (7-17) mg/dL Creatinine 0.80 0.98 (0.52-1.04) mg/dL Glucose 186 H 112 H (74-99) mg/dL Calcium 9.1 8.9 (8.4-10.2) mg/dL AST 38 H (14-36) U/L ALT 34 (9-52) U/L Alkaline Phosphatase 92 (38-126) U/L Total Protein 6.2 L (6.3-8.2) g/dL Albumin 3.4 L (3.5-5.0) g/dL Current Medications Generic Name Dose Route Start Last Admin Trade Name Freq PRN Reason Stop Dose Admin Acetaminophen 650 mg 06/02/18 14:39 Tylenol Tab PO Q6HR PRN Fever and/ or Pain Hydrocodone Bitart/Acetaminophen 1 each 06/02/18 14:40 [place] 5-325 PO Q6HR PRN Moderate Pain Albuterol/Ipratropium 3 ml 06/02/18 16:00 06/03/18 09:39 Duoneb 0.5 Mg-3 Mg/3 Ml Soln INHALATION 3 ml RT-QID BRENDEN Administration Alprazolam 0.25 mg 06/02/18 14:40 Xanax PO TID PRN Anxiety Ascorbic Acid 500 mg 06/03/18 09:00 06/03/18 09:17 Vitamin C PO 500 mg DAILY BRENDEN Administration Aspirin 81 mg 06/03/18 09:00 06/03/18 09:17 Aspirin PO 81 mg DAILY BRENDEN Administration Atorvastatin Calcium 10 mg 06/03/18 09:00 06/03/18 09:17 Lipitor PO 10 mg DAILY BRENDEN Administration Calcium Carbonate/Glycine 1,000 mg 06/02/18 14:40 Tums PO TID PRN Indigestion Cefazolin Sodium 2 gm 06/03/18 08:00 06/03/18 09:17 Kefzol IVP 2 gm Q8HR BRENDEN Administration Cholecalciferol 2,000 unit 06/03/18 09:00 06/03/18 09:17 Vitamin D3 PO 2,000 unit DAILY BRENDEN Administration Enoxaparin Sodium 40 mg 06/03/18 09:00 06/03/18 09:18 Lovenox SQ 40 mg DAILY BRENDEN Administration Furosemide 40 mg 06/03/18 09:00 06/03/18 09:18 Lasix PO 40 mg DAILY BRENDEN Administration Insulin Aspart 0 unit 06/02/18 17:30 06/03/18 06:21 Novolog SQ Not Given ACHS [facility] Protocol Insulin Detemir 16 unit 06/03/18 09:00 06/03/18 09:20 Levemir SQ 16 unit DAILY BRENDEN Administration Metoprolol Succinate 25 mg 06/03/18 09:00 Toprol Xl PO DAILY [facility] Miscellaneous Information 1 each 06/02/18 14:45 Potassium Per Protocol MISCELLANE DAILY PRN Per Protocol Protocol Diltiazem Hcl [ 60 mg 06/02/18 21:00 06/02/18 21:43 Diltiazem 12hr Er] PO Not Given Q12HR [facility] Nystatin 1 applic 06/02/18 14:40 Mycostatin Cream TOPICAL BID PRN Rash Ondansetron HCl 4 mg 06/02/18 14:39 Zofran IVP Q6HR PRN Nausea And Vomiting Pantoprazole Sodium 40 mg 06/03/18 07:30 06/03/18 06:34 Protonix PO 40 mg [id number] BRENDEN Administration Sertraline HCl 100 mg 06/03/18 09:00 06/03/18 09:18 Zoloft PO 100 mg DAILY BRENDEN Administration Intake and Output 06/02/18 06/03/18 06/03/18 22:59 06:59 14:59 Intake Total 1000 240 Balance 1000 240 Intake: Amount of Fluid Infused ( 1000 ml) Oral 240 Other: # Voids 1 1 Weight 121 kg 06/03/18 06:59 06/03/18 06:59 Assessment and Plan Assessment: #1 altered mental status and weakness #2 UTI #3 cellulitis #4 history of CAD with no prior cardiac catheterization #5 mild troponin leak of uncertain significance # 6 COPD # 7 severe pulmonary hypertension Plan: From cardiology 's perspective, we will treat the patient medically at this time. Optimize medical therapy. Further recommendations to follow. NEUROPHYSIOLOGY TECH note has been reviewed, I agree with a documented findings and plan of care. Patient was seen and examined.
[2018-06-03] MEDS: DILTIAZEM ORAL 60 MG TAB PO SCH ×2 (13:07→21:10)
[2018-06-03] MEDS: DILTIAZEM HCL PO SCH (13:19)
[2018-06-03 14:32] LABS: Hemoglobin A1C 8.1 % (4.0-6.0)
[2018-06-03 16:49] LABS: Glucose,Whole Blood 200 mg/dL (75-99)
[2018-06-03 21:06] LABS: Glucose,Whole Blood 153 mg/dL (75-99)
[2018-06-04 05:50] LABS: Glucose,Whole Blood 106 mg/dL (75-99)
[2018-06-04] MEDS: INSULIN ASPART 100 UNIT/ML 1 ML 10 ML VIAL SQ SCH ×4 (05:55→20:49)
[2018-06-04 06:39] LABS: Basophils # (A) 0.1 k/uL (0-0.2); Basophils % (A) 1 %; Eosinophils # (A) 0.3 k/uL (0-0.7); Eosinophils % (A) 5 %; HCT 36.5 % (34.0-46.0); HGB 10.8 gm/dL (11.4-16.0); Hypochromasia Marked; Lymphocytes # (A) 0.9 k/uL (1.0-4.8); Lymphocytes % (A) 18 %; MCH 25.3 pg (25.0-35.0); MCHC 29.7 g/dL (31.0-37.0); MCV 85.1 fL (80.0-100.0); Mean Platelet Volume 8.3; Monocytes # (A) 0.4 k/uL (0-1.0); Monocytes % (A) 9 %; Neutrophils # (A) 3.2 k/uL (1.3-7.7); Neutrophils % (A) 65 %; Platelet Count 185 k/uL (150-450); RBC 4.28 m/uL (3.80-5.40); RDW 15.4 % (11.5-15.5)
[2018-06-04] MEDS: PANTOPRAZOLE 40 MG TABLET PO SCH (06:51)
[2018-06-04 06:52] LABS: Potassium 4.2 mmol/L (3.5-5.1)
[2018-06-04 06:53] LABS: Calcium 9.1 mg/dL (8.4-10.2); Magnesium 1.5 mg/dL (1.6-2.3)
[2018-06-04] MEDS: IPRATROPIUM-ALBUTEROL 3 ML NEB INHALATION SCH ×4 (06:58→19:42)
[2018-06-04] MEDS: CHOLECALCIFEROL 1,000 UNIT TAB PO SCH (07:52)
[2018-06-04] MEDS: FUROSEMIDE 40 MG TAB PO SCH (07:52)
[2018-06-04] MEDS: ATORVASTATIN 10 MG TAB PO SCH (07:52)
[2018-06-04] MEDS: ASCORBIC ACID 500 MG TAB PO SCH (07:52)
[2018-06-04] MEDS: SERTRALINE 100 MG TAB PO SCH (07:52)
[2018-06-04] MEDS: ASPIRIN 81 MG PO SCH (07:52)
[2018-06-04] MEDS: METOPROLOL SUCCINATE (ER) 25 MG TAB.ER.24H PO SCH (07:52)
[2018-06-04] MEDS: ENOXAPARIN 40 MG/0.4 ML SYRINGE SQ SCH (07:53)
[2018-06-04] MEDS: INSULIN DETEMIR 100 UNIT/ML 10 ML VIAL SQ SCH (10:01)
[2018-06-04 10:05] LABS: Glucose,Whole Blood 129 mg/dL (75-99)
[2018-06-04 11:38] LABS: Glucose,Whole Blood 126 mg/dL (75-99)
[2018-06-04] MEDS: DILTIAZEM ORAL 60 MG TAB PO SCH (12:38)
--- NOTE | 2018-06-04 12:49 | P.PN ---
Subjective Mrs. Ramirez was seen and examined resting comfortably in bed doing and nebulizer treatment. She is being followed for mild troponin leak. Currently being treated for urinary tract infection, cellulitis and generalized weakness. Troponin leak not felt to be indicative of an acute coronary event. She denies symptoms of chest pain, shortness of breath, palpitations, dizziness, nausea, vomiting or diaphoresis. Laboratory data reviewed, hemoglobin 10.8, platelets 185, sodium 142, potassium 4.2, creatinine 0.9 and magnesium 1.5. Blood pressure 133/76 heart rate 74 afebrile maintaining oxygen saturation on nasal cannula. Objective - Vital Signs Vital signs: Vital Signs Temp 97.7 F 06/04/18 07:50 Pulse 74 06/04/18 10:40 Resp 18 06/04/18 07:50 BP 133/76 06/04/18 07:50 Pulse Ox 98 06/04/18 07:50 Intake & Output 06/03/18 06/04/18 06/04/18 18:59 06:59 18:59 Intake Total 1040 240 Output Total 100 Balance 1040 -100 240 Weight 120.1 kg Intake: IV 20 Invasive Line 1 10 Invasive Line 2 10 Oral 1020 240 Output: Urine 100 Other: Voiding Method Bedside Commode Diaper Incontinent # Voids 3 1 # Bowel Movements 1 - Exam GENERAL: Well-appearing, well-nourished and in no acute distress. Morbidly obese. NECK: Supple with minimal JVD, no thyromegaly. LUNGS: Breath sounds clear to auscultation bilaterally. Respiration equal and unlabored. No wheezes, rales or rhonchi. Diminished bilaterally. HEART: Regular rate and rhythm with systolic ejection murmur at the base, no rubs or gallops. S1 and S2 heard. EXTREMITIES: Normal range of motion, trace bilateral lower extremity edema with discoloration and erythema. No clubbing or cyanosis. Peripheral pulses intact. - Labs CBC & Chem 7: 06/04/18 06:21 06/04/18 06:21 Labs: Abnormal Lab Results - Last 24 Hours (Table) 06/03/18 06/03/18 06/03/18 Range/Units 06:59 16:39 21:04 Hgb (11.4-16.0) gm/dL MCHC (31.0-37.0) g/dL Lymphocytes # (1.0-4.8) k/uL BUN (7-17) mg/dL Glucose (74-99) mg/dL POC Glucose (mg/dL) 200 H 153 H (75-99) mg/dL Hemoglobin A1c 8.1 H (4.0-6.0) % Magnesium (1.6-2.3) mg/dL 06/04/18 06/04/18 06/04/18 Range/Units 05:49 06:21 06:21 Hgb 10.8 L (11.4-16.0) gm/dL MCHC 29.7 L (31.0-37.0) g/dL Lymphocytes # 0.9 L (1.0-4.8) k/uL BUN 34 H (7-17) mg/dL Glucose 103 H (74-99) mg/dL POC Glucose (mg/dL) 106 H (75-99) mg/dL Hemoglobin A1c (4.0-6.0) % Magnesium 1.5 L (1.6-2.3) mg/dL 06/04/18 06/04/18 Range/Units 10:03 11:26 Hgb (11.4-16.0) gm/dL MCHC (31.0-37.0) g/dL Lymphocytes # (1.0-4.8) k/uL BUN (7-17) mg/dL Glucose (74-99) mg/dL POC Glucose (mg/dL) 129 H 126 H (75-99) mg/dL Hemoglobin A1c (4.0-6.0) % Magnesium (1.6-2.3) mg/dL Microbiology - Last 24 Hours (Table) 06/02/18 11:49 Urine Culture - Final Urine,Catheterized Klebsiella pneumoniae Assessment and Plan Assessment: ASSESSMENT Altered mental status and weakness Urinary tract infection Cellulitis Mild troponin leak, not indicative of acute coronary event COPD Pulmonary hypertension, RVSP 78.55 mmHg Hypomagnesemia PLAN Continue current medical therapy. Follow-up with her primary butt presser upon discharge. We will continue to follow as needed. Please feel free to call with questions or concerns. Nurse Practitioner note has been reviewed, I agree with a documented findings and plan of care. Patient was seen and examined.
--- NOTE | 2018-06-04 14:24 | P.PN ---
Subjective Progress Note Date: 06/04/18 Principal diagnosis: UTI and bradycardia Patient is doing well today. She still bradycardic with heart rate mostly in the low 50s on the heart monitor. She reports feeling weak. No acute events overnight. Objective - Vital Signs Vital signs: Vital Signs Temp 97.6 F 06/04/18 12:36 Pulse 60 06/04/18 12:36 Resp 18 06/04/18 12:36 BP 124/78 06/04/18 12:36 Pulse Ox 98 06/04/18 12:36 Intake & Output 06/03/18 06/04/18 06/04/18 18:59 06:59 18:59 Intake Total 1040 480 Output Total 100 300 Balance 1040 -100 180 Weight 120.1 kg Intake: IV 20 Invasive Line 1 10 Invasive Line 2 10 Oral 1020 480 Output: Urine 100 300 Other: Voiding Method Bedside Commode Diaper Incontinent # Voids 3 1 1 # Bowel Movements 1 1 - Exam General: The patient is awake and alert, in no distress Eye: there is normal conjunctiva bilaterally. Neck: The neck is supple, there is no JVD. Cardiovascular: Normal S1-S2, no S3-S4, no murmurs. Respiratory: Lungs clear to auscultation bilaterally Gastrointestinal: Abdomen is soft, nontender Neurological:. Speech is normal. Skin: Skin is warm and dry - Labs CBC & Chem 7: 06/04/18 06:21 06/04/18 06:21 Labs: Abnormal Lab Results - Last 24 Hours (Table) 06/03/18 06/03/18 06/03/18 Range/Units 06:59 16:39 21:04 Hgb (11.4-16.0) gm/dL MCHC (31.0-37.0) g/dL Lymphocytes # (1.0-4.8) k/uL BUN (7-17) mg/dL Glucose (74-99) mg/dL POC Glucose (mg/dL) 200 H 153 H (75-99) mg/dL Hemoglobin A1c 8.1 H (4.0-6.0) % Magnesium (1.6-2.3) mg/dL 06/04/18 06/04/18 06/04/18 Range/Units 05:49 06:21 06:21 Hgb 10.8 L (11.4-16.0) gm/dL MCHC 29.7 L (31.0-37.0) g/dL Lymphocytes # 0.9 L (1.0-4.8) k/uL BUN 34 H (7-17) mg/dL Glucose 103 H (74-99) mg/dL POC Glucose (mg/dL) 106 H (75-99) mg/dL Hemoglobin A1c (4.0-6.0) % Magnesium 1.5 L (1.6-2.3) mg/dL 06/04/18 06/04/18 Range/Units 10:03 11:26 Hgb (11.4-16.0) gm/dL MCHC (31.0-37.0) g/dL Lymphocytes # (1.0-4.8) k/uL BUN (7-17) mg/dL Glucose (74-99) mg/dL POC Glucose (mg/dL) 129 H 126 H (75-99) mg/dL Hemoglobin A1c (4.0-6.0) % Magnesium (1.6-2.3) mg/dL Microbiology - Last 24 Hours (Table) 06/02/18 11:49 Urine Culture - Final Urine,Catheterized Klebsiella pneumoniae Assessment and Plan Assessment: 1. Sinus bradycardia, may be attributed to Cardizem and Toprol-XL use. On admission, I decreased her Toprol-XL dose from 50-25 mg daily. Today I would change Cardizem from 60 mg twice a day to 30 mg 3 times a day. I would continue telemetry monitoring. Thyroid function test checked and normal. Patient was seen and evaluated by cardiology. 2. Elevated troponin: Most likely non-thrombotic troponin leak. Patient denies any chest pain. 12-lead ECG showed no acute ischemic changes. Echocardiogram showed preserved ejection fraction and no significant valvular abnormalities. 3. Non-complicated urinary tract infection, given 1 dose of IV ceftriaxone in the emergency room. Antibiotic switched to IV cefazolin. Urine culture showed Klebsiella pneumonia susceptible to cefazolin. We will change antibiotic to Keflex on discharge. 4. Bilateral lower extremity cellulitis/chronic venous stasis: Continue IV cefazolin. Infectious disease consulted following 5. Severe pulmonary hypertension, severe tricuspid regurgitation, moderate mitral valve regurgitation, noted on echocardiogram of the heart: Patient follow -up closely with her own explosives engineer in [facility]. Advised to follow- up as an outpatient. 6. Morbid obesity 7. Mixed hyperlipidemia on Lipitor 8. Generalized anxiety disorder, maintained on Xanax 3 times a day. I would discontinue nighttime Restoril 9. Major depressive disorder: Continue home medication 10. Physical debility, PT/OT/social group worker consulted. Patient may benefit from subacute rehab 11. Type II diabetes mellitus, continue home dose of insulin. sliding scale. A1c 8.1 12. Obstructive sleep apnea on CPAP at home. Awaiting patient's family to bring her device Plan for today: -Continue telemetry monitoring and monitor for bradycardia -Plan for discharge to subacute rehab tomorrow patient preference [facility]
[2018-06-04] MEDS: DILTIAZEM ORAL 30 MG TAB PO SCH ×2 (14:50→20:50)
[2018-06-04] MEDS: ceFAZolin IN SWFI 2 GM/20 ML SYRINGE IVP SCH (14:59)
[2018-06-04] MEDS: CEPHALEXIN 500 MG CAP PO SCH ×2 (16:06→20:50)
[2018-06-04 16:16] LABS: Glucose,Whole Blood 172 mg/dL (75-99)
[2018-06-04 20:34] LABS: Glucose,Whole Blood 155 mg/dL (75-99)
--- NOTE | 2018-06-04 23:39 | PN ---
PROGRESS NOTE DATE OF SERVICE: 06/04/2018. REASON FOR FOLLOWUP: Pneumonia and UTI. INTERVAL HISTORY: The patient is afebrile. She is more awake and alert. She is breathing comfortably. Denies significant chest pain or cough. No abdominal pain and no diarrhea. EXAMINATION: Blood pressure 126/76, pulse of 74, temperature of 97.1, she is 96% on 3 L nasal cannula. GENERAL DESCRIPTION: GENERAL: An elderly female, up in the bed, in no distress. RESPIRATORY SYSTEM: Unlabored breathing. LUNGS: Clear to auscultation anteriorly. HEART: S1, S2. Regular rate and rhythm. ABDOMEN: Soft. EXTREMITIES: No edema of the feet. LABS: Hemoglobin is 10.8, white count 5.0, BUN of 34, creatinine 0.90. Lab culture finalized with Klebsiella pneumoniae that is sensitive to ceftriaxone and cefazolin. DIAGNOSTIC IMPRESSION AND PLAN: Patient admitted to the hospital with generalized weakness, multifactorial. This patient did have a component of Klebsiella UTI along with possible cellulitis to the left flank. The patient seemed to have shown clinical improvement. Antibiotic has been transitioned to oral Keflex, that should continue for another week to finish a course of therapy. Continue supportive care. MMODL / IJN: [id number] /
[2018-06-05 05:22] VITALS: TEMP 97.2
[2018-06-05 05:37] LABS: Glucose,Whole Blood 98 mg/dL (75-99)
[2018-06-05 06:33] LABS: Basophils # (A) 0.1 k/uL (0-0.2); Basophils % (A) 1 %; Eosinophils # (A) 0.3 k/uL (0-0.7); Eosinophils % (A) 5 %; HCT 36.9 % (34.0-46.0); HGB 11.1 gm/dL (11.4-16.0); Hypochromasia Marked; Lymphocytes % (A) 22 %; MCH 25.5 pg (25.0-35.0); Mean Platelet Volume 8.1; Monocytes # (A) 0.4 k/uL (0-1.0); Monocytes % (A) 8 %; Neutrophils # (A) 2.9 k/uL (1.3-7.7); Neutrophils % (A) 62 %; Platelet Count 203 k/uL (150-450); RBC 4.34 m/uL (3.80-5.40); RDW 15.6 % (11.5-15.5); WBC 4.7 k/uL (3.8-10.6)
[2018-06-05 06:43] LABS: Anion Gap 4 mmol/L; Blood Urea Nitrogen 28 mg/dL (7-17); Calcium 9.4 mg/dL (8.4-10.2); Carbon Dioxide 33 mmol/L (22-30); Chloride 104 mmol/L (98-107); Glucose 80 mg/dL (74-99); Magnesium 1.4 mg/dL (1.6-2.3); Potassium 4.4 mmol/L (3.5-5.1); Sodium 141 mmol/L (137-145)
[2018-06-05] MEDS: INSULIN ASPART 100 UNIT/ML 1 ML 10 ML VIAL SQ SCH ×2 (06:56→11:54)
[2018-06-05] MEDS: PANTOPRAZOLE 40 MG TABLET PO SCH (07:04)
[2018-06-05] MEDS: IPRATROPIUM-ALBUTEROL 3 ML NEB INHALATION SCH ×3 (08:04→15:17)
[2018-06-05] MEDS: ASPIRIN 81 MG PO SCH (08:44)
[2018-06-05] MEDS: ASCORBIC ACID 500 MG TAB PO SCH (08:44)
[2018-06-05] MEDS: CHOLECALCIFEROL 1,000 UNIT TAB PO SCH (08:45)
[2018-06-05] MEDS: CEPHALEXIN 500 MG CAP PO SCH (08:45)
[2018-06-05] MEDS: ATORVASTATIN 10 MG TAB PO SCH (08:45)
[2018-06-05] MEDS: ENOXAPARIN 40 MG/0.4 ML SYRINGE SQ SCH ×2 (08:46→09:03)
[2018-06-05] MEDS: DILTIAZEM ORAL 30 MG TAB PO SCH (08:46)
[2018-06-05] MEDS: FUROSEMIDE 40 MG TAB PO SCH (08:46)
[2018-06-05] MEDS: SERTRALINE 100 MG TAB PO SCH (08:47)
[2018-06-05] MEDS: METOPROLOL SUCCINATE (ER) 25 MG TAB.ER.24H PO SCH (08:47)
[2018-06-05] MEDS: INSULIN DETEMIR 100 UNIT/ML 10 ML VIAL SQ SCH (08:50)
[2018-06-05] MEDS: MAGNESIUM SULFATE-D5W PMX 1 GM in DEXTROSE/WATER 1 100ML.BAG IVPB SCH ×2 (10:12→10:13)
--- NOTE | 2018-06-05 10:31 | P.DS ---
Providers Date of admission: 06/02/18 13:55 Expected date of discharge: 06/05/18 Attending physician: Mei Barker Consults: 06/02/18 14:41 Consult Physician Routine Consulting Provider: Leonid De La Cruz Consult Reason/Comments: UTI, cellulitis of the lower extremity Do you want consulting provider notified?: Yes 06/02/18 14:43 Consult Physician Routine Consulting Provider: Reema Adams Consult Reason/Comments: Elevated troponin Do you want consulting provider notified?: Yes Primary care physician: Evens Grey [facility] Course: 1. Sinus bradycardia, may be attributed to Cardizem and Toprol-XL use, dose decreased. Thyroid function test checked and normal. Patient was seen and evaluated by cardiology. 2. Elevated troponin: Most likely non-thrombotic troponin leak. Patient denies any chest pain. 12-lead ECG showed no acute ischemic changes. Echocardiogram showed preserved ejection fraction and no significant valvular abnormalities. 3. Non-complicated urinary tract infection. Urine culture showed Klebsiella pneumonia susceptible to cefazolin. Would finish antibiotic course with Keflex for 5 days 4. Bilateral lower extremity cellulitis/chronic venous stasis 5. Severe pulmonary hypertension, severe tricuspid regurgitation, moderate mitral valve regurgitation, noted on echocardiogram of the heart: Patient follow -up closely with her own client solutions manager in [facility]. Advised to follow- up as an outpatient. 6. Morbid obesity 7. Mixed hyperlipidemia on Lipitor 8. Generalized anxiety disorder, maintained on Xanax 3 times a day. I would discontinue nighttime Restoril 9. Major depressive disorder: Continue home medication 10. Physical debility, PT/OT/older adult social work specialist consulted. Plan to discharge to [facility] on the [address] 11. Type II diabetes mellitus, continue home dose of insulin. sliding scale. A1c 8.1 12. Obstructive sleep apnea on CPAP at night Patient Condition at Discharge: Good Plan - Discharge Summary Discharge Rx Participant: No New Discharge Prescriptions: New ALPRAZolam [Xanax] 0.25 mg PO TID PRN #9 tab PRN Reason: Anxiety Cephalexin [Keflex] 500 mg PO TID #15 cap Diltiazem Oral [Cardizem*] 30 mg PO TID #90 tab Metoprolol Succinate (ER) [Toprol XL] 25 mg PO DAILY #30 tab.er.24h Continue Ascorbic Acid [Vitamin C] 500 mg PO DAILY Sertraline [Zoloft] 100 mg PO DAILY Pantoprazole Sodium [Protonix] 40 mg PO DAILY Insulin Glargine,Hum.rec.anlog [Lantus Solostar] 16 unit SQ DAILY Insulin Lispro [humaLOG Kwikpen] See Protocol SQ ACHS Furosemide [Lasix] 40 mg PO DAILY Ferrous Gluconate 324 mg PO MOWEFR Atorvastatin [Lipitor] 10 mg PO DAILY Aspirin EC [Ecotrin Low Dose] 81 mg PO DAILY Cholecalciferol (Vitamin D3) [Vitamin D3] 2,000 unit PO DAILY Calcium Carbonate [Tums Ultra Strength] 1,177 mg PO TID PRN PRN Reason: Indigestion Albuterol Inhaler [Ventolin Hfa Inhaler] 2 puff INHALATION RT-Q4H PRN PRN Reason: SOB/COPD Nystatin 100,000Unit/gm Cream [Mycostatin Cream] 1 applic TOPICAL BID PRN PRN Reason: Rash Magnesium Hydroxide [Milk of Magnesia] 2,400 mg PO DAILY PRN PRN Reason: Constipation Ipratropium-Albuterol Nebulize [Duoneb 0.5 mg-3 mg/3 ml Soln] 3 ml INHALATION RT-QID Acetaminophen Tab [Tylenol] 650 mg PO Q6H PRN PRN Reason: PAIN/FEVER ALPRAZolam [Xanax] 0.25 mg PO TID PRN PRN Reason: Anxiety HYDROcodone/APAP 5-325MG [[place] 5-325] 1 tab PO Q6HR PRN #12 tab PRN Reason: Pain Discontinued Metoprolol Succinate (ER) [Toprol Xl] 50 mg PO DAILY Fluconazole [Diflucan] 150 mg PO TH Diltiazem HCl [Diltiazem 12Hr ER] 60 mg PO Q12HR Senexon-S 1 tab PO DAILY Temazepam [Restoril] 15 mg PO HS PRN PRN Reason: Insomnia Q-Tussin-Dm 10 ml PO Q4H PRN PRN Reason: Cough Bisacodyl [Dulcolax] 10 mg RECTAL DAILY PRN PRN Reason: Constipation Discharge Medication List ALPRAZolam [Xanax] 0.25 mg PO TID PRN 06/02/18 [History] Acetaminophen Tab [Tylenol] 650 mg PO Q6H PRN 06/02/18 [History] Albuterol Inhaler [Ventolin Hfa Inhaler] 2 puff INHALATION RT-Q4H PRN 06/02/18 [ History] Ascorbic Acid [Vitamin C] 500 mg PO DAILY 06/02/18 [History] Aspirin EC [Ecotrin Low Dose] 81 mg PO DAILY 06/02/18 [History] Atorvastatin [Lipitor] 10 mg PO DAILY 06/02/18 [History] Calcium Carbonate [Tums Ultra Strength] 1,177 mg PO TID PRN 06/02/18 [History] Cholecalciferol (Vitamin D3) [Vitamin D3] 2,000 unit PO DAILY 06/02/18 [History] Ferrous Gluconate 324 mg PO MOWEFR 06/02/18 [History] Furosemide [Lasix] 40 mg PO DAILY 06/02/18 [History] Insulin Glargine,Hum.rec.anlog [Lantus Solostar] 16 unit SQ DAILY 06/02/18 [ History] Insulin Lispro [humaLOG Kwikpen] See Protocol SQ ACHS 06/02/18 [History] Ipratropium-Albuterol Nebulize [Duoneb 0.5 mg-3 mg/3 ml Soln] 3 ml INHALATION RT -QID 06/02/18 [History] Magnesium Hydroxide [Milk of Magnesia] 2,400 mg PO DAILY PRN 06/02/18 [History] Nystatin 100,000Unit/gm Cream [Mycostatin Cream] 1 applic TOPICAL BID PRN [History] Pantoprazole Sodium [Protonix] 40 mg PO DAILY 06/02/18 [History] Sertraline [Zoloft] 100 mg PO DAILY 06/02/18 [History] ALPRAZolam [Xanax] 0.25 mg PO TID PRN #9 tab 06/05/18 [Rx] Cephalexin [Keflex] 500 mg PO TID #15 cap 06/05/18 [Rx] Diltiazem Oral [Cardizem*] 30 mg PO TID #90 tab 06/05/18 [Rx] HYDROcodone/APAP 5-325MG [[place] 5-325] 1 tab PO Q6HR PRN #12 tab 06/05/18 [Rx] Metoprolol Succinate (ER) [Toprol XL] 25 mg PO DAILY #30 tab.er.24h 06/05/18 [Rx ] Follow up Appointment(s)/Referral(s): Evens Morataya MD [Primary Care Provider] - 1-2 days Discharge Disposition: TRANSFER TO SNF/ECF
[2018-06-05 11:40] LABS: Glucose,Whole Blood 129 mg/dL (75-99)
[2018-06-05 12:33] VITALS: BP 144/64
[2018-06-05 13:09] VITALS: RESP 16
--- NOTE | 2018-06-05 15:40 | PN ---
PROGRESS NOTE DATE OF SERVICE: 06/05/2018. REASON FOR FOLLOW UP: 1. UTI. 2. Left leg cellulitis. INTERVAL HISTORY: The patient is afebrile. She is breathing comfortably. Denies having any chest pain or shortness of breath or cough. No abdominal pain. Left leg swelling and redness have resolved. Currently no open wound. EXAMINATION: Blood pressure 136/76, pulse of 70, temperature 97.2. She is 94% on 2 L nasal cannula. General description is an elderly female up in the bed in no distress. RESPIRATORY SYSTEM: Unlabored breathing with decreased breath sounds at bases. No wheeze. HEART: S1, S2. Regular rate and rhythm. ABDOMEN: Soft, no tenderness. LABS: Hemoglobin 11.1, white count 4.7, BUN of 28, creatinine 0.70. DIAGNOSTIC IMPRESSION AND PLAN: Patient with Klebsiella pneumoniae urinary tract infection and left lower extremity cellulitis. The patient showed clinical improvement to finish therapy with oral Keflex 500 mg t.i.d. for about 4-5 days. Continue supportive care. MMODL / CHARLOTTEN: [id number] /
[2018-06-05 15:49] VITALS: PULSE 76
== END 2018-06-05 14:05 | DRG 690 ==
LOC: EC 11:02 → 6SEL 13:55
PROVIDERS: ADMIT Internal Medicine; ATTEND Internal Medicine
DX: N39.0 Urinary tract infection, site not specified (principal); Z68.41 Body mass index [BMI] 40.0-44.9, adult; J44.0 Chronic obstructive pulmonary disease with (acute) lower respiratory infection; L03.115 Cellulitis of right lower limb; L03.116 Cellulitis of left lower limb; B96.1 Klebsiella pneumoniae [K. pneumoniae] as the cause of diseases classified elsewhere; E11.9 Type 2 diabetes mellitus without complications; E66.01 Morbid (severe) obesity due to excess calories; E78.2 Mixed hyperlipidemia; E83.42 Hypomagnesemia; E86.0 Dehydration; F32.9 Major depressive disorder, single episode, unspecified; F41.1 Generalized anxiety disorder; G47.33 Obstructive sleep apnea (adult) (pediatric); I08.3 Combined rheumatic disorders of mitral, aortic and tricuspid valves; I10 Essential (primary) hypertension; I25.10 Atherosclerotic heart disease of native coronary artery without angina pectoris; I27.20 Pulmonary hypertension, unspecified; I48.91 Unspecified atrial fibrillation; R00.1 Bradycardia, unspecified; T46.1X5A Adverse effect of calcium-channel blockers, initial encounter; T44.7X5A Adverse effect of beta-adrenoreceptor antagonists, initial encounter; I87.8 Other specified disorders of veins; Z87.01 Personal history of pneumonia (recurrent); J44.9 Chronic obstructive pulmonary disease, unspecified; Z87.891 Personal history of nicotine dependence; K21.9 Gastro-esophageal reflux disease without esophagitis; R32 Unspecified urinary incontinence; Z79.4 Long term (current) use of insulin; Z82.49 Family history of ischemic heart disease and other diseases of the circulatory system; Z88.1 Allergy status to other antibiotic agents; Z99.81 Dependence on supplemental oxygen; Z88.0 Allergy status to penicillin; F40.240 Claustrophobia; Z98.42 Cataract extraction status, left eye; Z98.41 Cataract extraction status, right eye; Z96.1 Presence of intraocular lens; Z96.653 Presence of artificial knee joint, bilateral; Z82.0 Family history of epilepsy and other diseases of the nervous system; Z79.82 Long term (current) use of aspirin; Z79.899 Other long term (current) drug therapy; R74.8 Abnormal levels of other serum enzymes; R53.1 Weakness; M19.90 Unspecified osteoarthritis, unspecified site
CPT/HCPCS: 36415; 80048; 80053; 81001; 82550; 82553; 83036; 83520; 83735; 84100; 84443; 84484; 85025; 85610; 85730; 87077; 87086; 87186; 93005; 93306; 94640; 94760; 96361; 96374; 96375; 99285

== ENCOUNTER 2018-11-06 06:08 | Emergency (ER) | payer MEDICARE ==
[2018-11-06 06:17] VITALS: TEMP 98
[2018-11-06] MEDS ORDERED: LIDOCAINE 1%-EPI 1:100,000 20 ML VIAL SQ STA (06:42)
[2018-11-06] MEDS ORDERED: OXYMETAZOLINE 0.05% NASL SPRAY 1 SPRAY BOTTLE NASAL STA (06:42)
--- NOTE | 2018-11-06 07:14 | ED ---
ENT HPI - General Chief complaint: ENT Stated complaint: Nose Bleed Time Seen by Provider: 11/06/18 06:17 Source: patient Mode of arrival: EMS Limitations: no limitations - History of Present Illness Initial comments: Rehana is a pleasant 78-year-old female who presents to the emergency department today for evaluation of nosebleed. Patient reports herbeen bleeding intermittently since about midnight, she has intermittently tried to hold pressure and his primarily just been wiping her nose waiting for the bleeding to stop. Patient does report a history of seasonal ALLERGIES, she does report that it's very dry in her home. denies any associated fevers, chills, nausea, vomiting, chest pain palpitation shortness of breath or lightheadedness. She denies any history of significant nosebleeds or trauma in the past. - Related Data Home Medications Medication Instructions Recorded Confirmed ALPRAZolam [Xanax] 0.25 mg PO TID PRN 06/02/18 06/02/18 Acetaminophen Tab [Tylenol] 650 mg PO Q6H PRN 06/02/18 06/02/18 Albuterol Inhaler [Ventolin Hfa 2 puff INHALATION RT-Q4H PRN 06/02/18 06/02/18 Inhaler] Ascorbic Acid [Vitamin C] 500 mg PO DAILY 06/02/18 06/02/18 Aspirin EC [Ecotrin Low Dose] 81 mg PO DAILY 06/02/18 06/02/18 Atorvastatin [Lipitor] 10 mg PO DAILY 06/02/18 06/02/18 Calcium Carbonate [Tums Ultra 1,177 mg PO TID PRN 06/02/18 06/02/18 Strength] Cholecalciferol (Vitamin D3) 2,000 unit PO DAILY 06/02/18 06/02/18 [Vitamin D3] Ferrous Gluconate 324 mg PO MOWEFR 06/02/18 06/02/18 Furosemide [Lasix] 40 mg PO DAILY 06/02/18 06/02/18 Insulin Glargine,Hum.rec.anlog 16 unit SQ DAILY 06/02/18 06/02/18 [Lantus Solostar] Insulin Lispro [humaLOG Kwikpen] See Protocol SQ ACHS 06/02/18 06/02/18 Ipratropium-Albuterol Nebulize 3 ml INHALATION RT-QID 06/02/18 06/02/18 [Duoneb 0.5 mg-3 mg/3 ml Soln] Magnesium Hydroxide [Milk of 2,400 mg PO DAILY PRN 06/02/18 06/02/18 Magnesia] Nystatin 100,000Unit/gm Cream 1 applic TOPICAL BID PRN 06/02/18 06/02/18 [Mycostatin Cream] Pantoprazole Sodium [Protonix] 40 mg PO DAILY 06/02/18 06/02/18 Sertraline [Zoloft] 100 mg PO DAILY 06/02/18 06/02/18 Previous Rx's Medication Instructions Recorded ALPRAZolam [Xanax] 0.25 mg PO TID PRN #9 tab 06/05/18 Cephalexin [Keflex] 500 mg PO TID #15 cap 06/05/18 Diltiazem Oral [Cardizem*] 30 mg PO TID #90 tab 06/05/18 HYDROcodone/APAP 5-325MG [[place] 1 tab PO Q6HR PRN #12 tab 06/05/18 5-325] Metoprolol Succinate (ER) [Toprol 25 mg PO DAILY #30 tab.er.24h 06/05/18 XL] Allergies Allergy/AdvReac Type Severity Reaction Status Date / Time Iodinated Contrast- Oral and Allergy Unknown Verified 11/06/18 06:17 IV Dye Penicillins Allergy Unknown Verified 11/06/18 06:17 vancomycin Allergy Unknown Verified 11/06/18 06:17 Review of Systems ROS Statement: Those systems with pertinent positive or pertinent negative responses have been documented in the HPI. ROS Other: All systems not noted in ROS Statement are negative. Past Medical History Past Medical History: Atrial Fibrillation, Coronary Artery Disease (CAD), Diabetes Mellitus, GERD/Reflux, Hyperlipidemia, Hypertension, Osteoarthritis (OA ), Pneumonia, Sleep Apnea/CPAP/BIPAP Additional Past Medical History / Comment(s): home 02 3 liters atc,lt lower leg wound History of Any Multi-Drug Resistant Organisms: None Reported Past Surgical History: Orthopedic Surgery, Tonsillectomy Additional Past Surgical History / Comment(s): kerwin cataracts removed has lens implants, kerwin knee replacments Past Anesthesia/Blood Transfusion Reactions: Motion Sickness Additional Past Anesthesia/Blood Transfusion Reaction / Comment(s): clausterphobia Past Psychological History: Anxiety, Depression Smoking Status: Former smoker Past Alcohol Use History: None Reported Past Drug Use History: None Reported - Past Family History Father Family Medical History: Coronary Artery Disease (CAD) Additional Family Medical History / Comment(s): enlarged heart Mother Family Medical History: Dementia, Hypertension Additional Family Medical History / Comment(s): hysterectomy-d/t benign tumor General Exam - General Exam Comments Initial Comments: Physical Exam GENERAL: Patient is well-developed and well-nourished. Patient is nontoxic and well-hydrated and is in no distress. HENT: Normocephalic, Atraumatic. Dried blood in the right naris, after patient blew her nose and remove the clot there was a small area of bleeding on the septum of the right naris, no bleeding from the left EYES: PERRL, EOMI No conjunctival pallor PULMONARY: Unlabored respirations. No audible rales rhonchi or wheezing was noted. CARDIOVASCULAR: Irregularly irregular ABDOMEN: Soft and nontender with normal bowel sounds. SKIN: Skin is clear with no lesions or rashes and otherwise unremarkable. No pallor : Deferred NEUROLOGIC: Patient is alert and oriented x3. Moving all extremities spontaneously MUSCULOSKELETAL: Normal extremities with adequate strength and full range of motion. No lower extremity swelling or edema. No calf tenderness. PSYCHIATRIC: Normal psychiatric evaluation. Limitations: no limitations Limitations: no limitations Course Vital Signs 11/06/18 11/06/18 11/06/18 06:12 06:25 07:57 Temperature 98.0 F Pulse Rate 88 82 Respiratory 18 19 18 Rate Blood Pressure 170/63 156/87 O2 Sat by Pulse 97 97 Oximetry Medical Decision Making - Medical Decision Making Patient was seen and evaluated history is obtained from the patient Patient blew her nose and removed a very large clot, she suddenly had some venous oozing from the anterior nose. A clamp was placed. A nasal clamp was placed Gauze soaked in Afrin was packed into the nose Bleeding resolved completely She was provided nasal clamps to take home. Patient was advised that if she has any further bleeding she should apply the nasal clamp for 15 minutes without removing it if bleeding persists after 15 minutes she should return to the emergency department for reevaluation. All questions pertaining care were answered return parameters were discussed patient was discharged home in stable condition. Disposition Clinical Impression: Epistaxis Disposition: HOME SELF-CARE Instructions: Nosebleed (ED) Is patient prescribed a controlled substance at d/c from ED?: No Referrals: Nick Bailey MD [Primary Care Provider] - 1-2 days
[2018-11-06 08:00] VITALS: BP 156/87; PULSE 82; RESP 18
[2018-11-06] MEDS ORDERED: DILTIAZEM ORAL 30 MG TAB PO SCH (09:00)
[2018-11-06] MEDS ORDERED: METOPROLOL SUCCINATE (ER) 25 MG TAB.ER.24H PO SCH (09:00)
== END 2018-11-06 07:53 | disposition home or self-care (01) ==
LOC: EC 06:08
DX: R04.0 Epistaxis (principal); I48.91 Unspecified atrial fibrillation; I25.10 Atherosclerotic heart disease of native coronary artery without angina pectoris; E11.9 Type 2 diabetes mellitus without complications; K21.9 Gastro-esophageal reflux disease without esophagitis; E78.5 Hyperlipidemia, unspecified; I10 Essential (primary) hypertension; M19.90 Unspecified osteoarthritis, unspecified site; G47.30 Sleep apnea, unspecified; Z99.89 Dependence on other enabling machines and devices; F32.9 Major depressive disorder, single episode, unspecified; F41.9 Anxiety disorder, unspecified; Z87.891 Personal history of nicotine dependence; Z79.82 Long term (current) use of aspirin; Z79.4 Long term (current) use of insulin; Z79.899 Other long term (current) drug therapy; Z88.0 Allergy status to penicillin; Z88.1 Allergy status to other antibiotic agents; Z91.041 Radiographic dye allergy status; Z96.653 Presence of artificial knee joint, bilateral
CPT/HCPCS: 96372; 99283

== ENCOUNTER 2018-11-10 14:46 | Inpatient (IN) | payer MEDICARE ==
[2018-11-10] MEDS ORDERED: SODIUM CHLORIDE 0.9% 1,000 ML IV STA (15:22)
[2018-11-10] MEDS ORDERED: IPRATROPIUM-ALBUTEROL 3 ML NEB INHALATION STA (15:22)
--- NOTE | 2018-11-10 15:26 | ED ---
SOB HPI - General Chief Complaint: Shortness of Breath Stated Complaint: Pneumonia Time Seen by Provider: 11/10/18 15:12 Source: patient, EMS, RN notes reviewed Mode of arrival: EMS Limitations: no limitations - History of Present Illness Initial Comments: This is a 78-year-old female with a history of recent nosebleed the right naris who had a balloon placed 4 days ago who presents now with complaints of shortness of breath cough fevers chills and sweats she apparently had an outpatient x-ray done which did show pneumonia. She denies any chest pain peripheral edema or other symptoms at this time. MD Complaint: shortness of breath, cough - Related Data Home Medications Medication Instructions Recorded Confirmed Acetaminophen Tab [Tylenol] 650 mg PO Q6H PRN 06/02/18 11/10/18 Albuterol Inhaler [Ventolin Hfa 2 puff INHALATION RT-Q4H PRN 06/02/18 11/10/18 Inhaler] Ascorbic Acid [Vitamin C] 500 mg PO DAILY 06/02/18 11/10/18 Aspirin EC [Ecotrin Low Dose] 81 mg PO DAILY 06/02/18 11/10/18 Atorvastatin [Lipitor] 10 mg PO DAILY 06/02/18 11/10/18 Cholecalciferol (Vitamin D3) 2,000 unit PO DAILY 06/02/18 11/10/18 [Vitamin D3] Ferrous Gluconate 324 mg PO MOWEFR 06/02/18 11/10/18 Furosemide [Lasix] 40 mg PO BID 06/02/18 11/10/18 Insulin Glargine,Hum.rec.anlog 25 unit SQ DAILY 06/02/18 11/10/18 [Lantus Solostar] Insulin Lispro [humaLOG Kwikpen] See Protocol SQ BID 06/02/18 11/10/18 Ipratropium-Albuterol Nebulize 3 ml INHALATION RT-QID 06/02/18 11/10/18 [Duoneb 0.5 mg-3 mg/3 ml Soln] Nystatin 100,000Unit/gm Cream 1 applic TOPICAL BID PRN 06/02/18 11/10/18 [Mycostatin Cream] Sertraline [Zoloft] 100 mg PO DAILY 06/02/18 11/10/18 Allopurinol [Zyloprim] 300 mg PO DAILY 11/10/18 11/10/18 Bisacodyl [Dulcolax] 10 mg RECTAL ONCE PRN 11/10/18 11/10/18 Calcium Carbonate [Tums] 500 mg PO TID PRN 11/10/18 11/10/18 Hydroxychloroquine Sulfate 200 mg PO BID 11/10/18 11/10/18 [Plaquenil] Magnesium Oxide [Mag-Ox] 400 mg PO DAILY 11/10/18 11/10/18 Melatonin 3 mg PO HS 11/10/18 11/10/18 Omeprazole 20 mg PO DAILY 11/10/18 11/10/18 Sennosides/Docusate Sodium 2 tab PO TUTHSA PRN 11/10/18 11/10/18 [Senna-S Laxative Tablet] Sodium Chloride [[place]] 2 spray EA NOSTRIL TID 11/10/18 11/10/18 Previous Rx's Medication Instructions Recorded Diltiazem Oral [Cardizem*] 30 mg PO TID #90 tab 06/05/18 HYDROcodone/APAP 5-325MG [[place] 1 tab PO Q6HR PRN #12 tab 06/05/18 5-325] Metoprolol Succinate (ER) [Toprol 25 mg PO DAILY #30 tab.er.24h 06/05/18 XL] Allergies Allergy/AdvReac Type Severity Reaction Status Date / Time Iodinated Contrast- Oral and Allergy Unknown Verified 11/10/18 16:01 IV Dye Penicillins Allergy Unknown Verified 11/10/18 16:01 vancomycin Allergy Unknown Verified 11/10/18 16:01 Review of Systems ROS Statement: Those systems with pertinent positive or pertinent negative responses have been documented in the HPI. ROS Other: All systems not noted in ROS Statement are negative. Past Medical History Past Medical History: Atrial Fibrillation, Coronary Artery Disease (CAD), Diabetes Mellitus, GERD/Reflux, Hyperlipidemia, Hypertension, Osteoarthritis (OA ), Pneumonia, Sleep Apnea/CPAP/BIPAP Additional Past Medical History / Comment(s): home 02 3 liters atc,lt lower leg wound History of Any Multi-Drug Resistant Organisms: None Reported Past Surgical History: Orthopedic Surgery, Tonsillectomy Additional Past Surgical History / Comment(s): kerwin cataracts removed has lens implants, kerwin knee replacments Past Anesthesia/Blood Transfusion Reactions: Motion Sickness Additional Past Anesthesia/Blood Transfusion Reaction / Comment(s): clausterphobia Past Psychological History: Anxiety, Depression Smoking Status: Former smoker Past Alcohol Use History: None Reported Past Drug Use History: None Reported - Past Family History Father Family Medical History: Coronary Artery Disease (CAD) Additional Family Medical History / Comment(s): enlarged heart Mother Family Medical History: Dementia, Hypertension Additional Family Medical History / Comment(s): hysterectomy-d/t benign tumor General Exam - General Exam Comments Initial Comments: This is a well-developed well-nourished awake alert oriented 3 female Limitations: no limitations General appearance: alert, lethargic Head exam: Present: atraumatic, normocephalic, normal inspection Eye exam: Present: normal appearance, PERRL, EOMI. Absent: scleral icterus, conjunctival injection, periorbital swelling ENT exam: Present: mucous membranes dry Neck exam: Present: normal inspection, full ROM, other (No stridor JVD or bruits ). Absent: tenderness, meningismus, lymphadenopathy Respiratory exam: Present: rhonchi, accessory muscle use, decreased breath sounds. Absent: respiratory distress, wheezes, rales, stridor Cardiovascular Exam: Present: regular rate, normal rhythm, normal heart sounds. Absent: systolic murmur, diastolic murmur, rubs, gallop, clicks GI/Abdominal exam: Present: soft, normal bowel sounds. Absent: distended, tenderness, guarding, rebound, rigid Extremities exam: Present: normal inspection, full ROM, normal capillary refill. Absent: tenderness, pedal edema, joint swelling, calf tenderness Back exam: Present: normal inspection Neurological exam: Present: alert, oriented X3, CN II-XII intact Psychiatric exam: Present: normal affect, normal mood Skin exam: Present: warm, dry, intact, normal color. Absent: rash Course Vital Signs 11/10/18 11/10/18 11/10/18 14:56 15:00 15:05 Temperature 98.0 F Pulse Rate 79 73 Respiratory 16 25 H Rate Blood Pressure 116/66 124/75 O2 Sat by Pulse 93 L 93 L 81 L Oximetry 11/10/18 11/10/18 11/10/18 15:06 15:08 15:36 Temperature Pulse Rate 73 Respiratory 25 H Rate Blood Pressure O2 Sat by Pulse 93 L Oximetry 11/10/18 11/10/18 11/10/18 15:48 16:00 17:00 Temperature Pulse Rate 81 70 74 Respiratory 22 17 Rate Blood Pressure 113/69 104/49 O2 Sat by Pulse 93 L 92 L Oximetry - Reevaluation(s) Reevaluation #1: 11/10/18 17:58 Did reevaluate patient several occasions she does have evidence of pneumonia as well as CHF. I did discuss the findings with her she will be admitted. Medical Decision Making - Lab Data Result diagrams: 11/10/18 15:00 11/10/18 15:00 Lab Results 11/10/18 11/10/18 11/10/18 Range/Units 15:00 15:00 15:00 WBC 12.8 H (3.8-10.6) k/uL RBC 4.21 (3.80-5.40) m/uL Hgb 12.2 (11.4-16.0) gm/dL Hct 38.4 (34.0-46.0) % MCV 91.2 (80.0-100.0) fL MCH 29.0 (25.0-35.0) pg MCHC 31.8 (31.0-37.0) g/dL RDW 15.1 (11.5-15.5) % Plt Count 335 (150-450) k/uL Neutrophils % 87 % Lymphocytes % 6 % Monocytes % 4 % Eosinophils % 1 % Basophils % 1 % Neutrophils # 11.2 H (1.3-7.7) k/uL Lymphocytes # 0.8 L (1.0-4.8) k/uL Monocytes # 0.5 (0-1.0) k/uL Eosinophils # 0.1 (0-0.7) k/uL Basophils # 0.1 (0-0.2) k/uL PT (9.0-12.0) sec INR (<1.2) APTT (22.0-30.0) sec Sodium 140 (137-145) mmol/L Potassium 3.7 (3.5-5.1) mmol/L Chloride 100 (98-107) mmol/L Carbon Dioxide 28 (22-30) mmol/L Anion Gap 12 mmol/L BUN 38 H (7-17) mg/dL Creatinine 0.72 (0.52-1.04) mg/dL Est GFR (CKD-EPI)AfAm >90 (>60 ml/min/1.73 sqM) Est GFR (CKD-EPI)NonAf 81 (>60 ml/min/1.73 sqM) Glucose 70 L (74-99) mg/dL Plasma Lactic Acid Mauro (0.7-2.0) mmol/L Calcium 9.7 (8.4-10.2) mg/dL Magnesium 1.6 (1.6-2.3) mg/dL Total Bilirubin 1.4 H (0.2-1.3) mg/dL AST 45 H (14-36) U/L ALT 47 (9-52) U/L Alkaline Phosphatase 132 H (38-126) U/L Total Creatine Kinase 120 (30-135) U/L CK-MB (CK-2) 6.3 H (0.0-2.4) ng/mL CK-MB (CK-2) Rel Index 5.3 Troponin I 0.067 H* (0.000-0.034) ng/mL NT-Pro-B Natriuret Pep pg/mL Total Protein 6.8 (6.3-8.2) g/dL Albumin 3.5 (3.5-5.0) g/dL 11/10/18 11/10/18 11/10/18 Range/Units 15:00 15:00 15:00 WBC (3.8-10.6) k/uL RBC (3.80-5.40) m/uL Hgb (11.4-16.0) gm/dL Hct (34.0-46.0) % MCV (80.0-100.0) fL MCH (25.0-35.0) pg MCHC (31.0-37.0) g/dL RDW (11.5-15.5) % Plt Count (150-450) k/uL Neutrophils % % Lymphocytes % % Monocytes % % Eosinophils % % Basophils % % Neutrophils # (1.3-7.7) k/uL Lymphocytes # (1.0-4.8) k/uL Monocytes # (0-1.0) k/uL Eosinophils # (0-0.7) k/uL Basophils # (0-0.2) k/uL PT 10.9 (9.0-12.0) sec INR 1.0 (<1.2) APTT 23.7 (22.0-30.0) sec Sodium (137-145) mmol/L Potassium (3.5-5.1) mmol/L Chloride (98-107) mmol/L Carbon Dioxide (22-30) mmol/L Anion Gap mmol/L BUN (7-17) mg/dL Creatinine (0.52-1.04) mg/dL Est GFR (CKD-EPI)AfAm (>60 ml/min/1.73 sqM) Est GFR (CKD-EPI)NonAf (>60 ml/min/1.73 sqM) Glucose (74-99) mg/dL Plasma Lactic Acid Mauro 1.7 (0.7-2.0) mmol/L Calcium (8.4-10.2) mg/dL Magnesium (1.6-2.3) mg/dL Total Bilirubin (0.2-1.3) mg/dL AST (14-36) U/L ALT (9-52) U/L Alkaline Phosphatase (38-126) U/L Total Creatine Kinase (30-135) U/L CK-MB (CK-2) (0.0-2.4) ng/mL CK-MB (CK-2) Rel Index Troponin I (0.000-0.034) ng/mL NT-Pro-B Natriuret Pep 79929 pg/mL Total Protein (6.3-8.2) g/dL Albumin (3.5-5.0) g/dL - EKG Data -: EKG Interpreted by Ri EKG shows normal: sinus rhythm (Sinus rhythm of 82. Interval 172 QRS duration 136 QT since QTC 454/5:30 that exodeviation nonspecific interventricular block PVCs noted) - Radiology Data Radiology results: report reviewed (I did review the imaging and report is evidence a right perihilar infiltrate.), image reviewed Critical Care Time Critical Care Time: Yes Critical Care Time: 37 minutes of critical care time which includes initial presentation with history physical labs x-rays several reevaluation the patient response to therapy discuss with the patient regarding the findings discussion with the admitting physician Dr. gaytan administration and evaluation medication by nursing with evaluation. Old chart review that was available. Admission orders and documentation of the above Disposition Clinical Impression: Congestive heart failure, Pneumonia, Diabetes, History of atrial fibrillation, Failure to thrive Disposition: ADMITTED IP TO THIS HOSP Condition: Serious Referrals: Nick Bailey MD [Primary Care Provider] - 1-2 days
[2018-11-10 15:52] LABS: Basophils # (A) 0.1 k/uL (0-0.2); Basophils % (A) 1 %; Eosinophils # (A) 0.1 k/uL (0-0.7); Eosinophils % (A) 1 %; HCT 38.4 % (34.0-46.0); HGB 12.2 gm/dL (11.4-16.0); Lymphocytes # (A) 0.8 k/uL (1.0-4.8); Lymphocytes % (A) 6 %; MCHC 31.8 g/dL (31.0-37.0); MCV 91.2 fL (80.0-100.0); Mean Platelet Volume 7.4; Monocytes # (A) 0.5 k/uL (0-1.0); Monocytes % (A) 4 %; Neutrophils # (A) 11.2 k/uL (1.3-7.7); Neutrophils % (A) 87 %; Platelet Count 335 k/uL (150-450); RBC 4.21 m/uL (3.80-5.40); RDW 15.1 % (11.5-15.5); WBC 12.8 k/uL (3.8-10.6)
[2018-11-10 16:05] LABS: Partial Thromboplastin Time 23.7 sec (22.0-30.0); Prothrombin Time 10.9 sec (9.0-12.0)
[2018-11-10 16:07] LABS: ALT 47 U/L (9-52); AST 45 U/L (14-36); Albumin 3.5 g/dL (3.5-5.0); Alkaline Phosphatase 132 U/L (38-126); Anion Gap 12 mmol/L; Blood Urea Nitrogen 38 mg/dL (7-17); Calcium 9.7 mg/dL (8.4-10.2); Carbon Dioxide 28 mmol/L (22-30); Chloride 100 mmol/L (98-107); Glucose 70 mg/dL (74-99); Magnesium 1.6 mg/dL (1.6-2.3); Potassium 3.7 mmol/L (3.5-5.1); Sodium 140 mmol/L (137-145); Total Bilirubin 1.4 mg/dL (0.2-1.3); Total Protein 6.8 g/dL (6.3-8.2)
--- NOTE | 2018-11-10 16:19 | XR ---
EXAMINATION TYPE: XR chest 2V DATE OF EXAM: 11/10/2018 COMPARISON: NONE HISTORY: Shortness of breath TECHNIQUE: Frontal and lateral views of the chest are obtained. FINDINGS: Scattered senescent parenchymal changes noted. Hyperinflation compatible with COPD. Patchy right perihilar infiltrate noted. Correlate for pneumonia. Cardiomegaly seen. Mediastinal structures are stable and grossly unremarkable. No evidence for hilar prominence. Degenerative changes dorsal spine. IMPRESSION: Patchy right perihilar infiltrate noted. Correlate for pneumonia. Cardiomegaly seen.
[2018-11-10 16:28] LABS: Creatine Kinase MB 6.3 ng/mL (0.0-2.4)
[2018-11-10 16:31] LABS: Troponin I 0.067 ng/mL (0.000-0.034)
[2018-11-10] MEDS ORDERED: FUROSEMIDE 10 MG/ML 4 ML VIAL IV STA (18:00)
[2018-11-10] MEDS ORDERED: PNEUMONIA PROTOCOL UTILIZED 1 EACH MISC PO PRN (18:05)
[2018-11-10] MEDS ORDERED: ACETAMINOPHEN TAB 325 MG TAB PO PRN (18:09)
[2018-11-10] MEDS ORDERED: CALCIUM CARBONATE 500 MG CHEWABLE PO PRN (18:09)
[2018-11-10] MEDS ORDERED: NYSTATIN 100,000UNIT/GM CREAM 30 GM TUBE TOPICAL PRN (18:09)
[2018-11-10] MEDS ORDERED: SENNOSIDES-DOCUSATE SODIUM 1 EACH TAB PO PRN (18:09)
[2018-11-10] MEDS ORDERED: HYDROcodone/APAP 5-325MG 1 EACH TAB PO PRN (18:09)
[2018-11-10] MEDS ORDERED: AZITHROMYCIN 500 MG in SODIUM CHLORIDE 0.9% 250 ML IVPB STA (18:15)
[2018-11-10] MEDS ORDERED: NON-FORMULARY DRUG (Ferrous Gluconate [Ferrous Gluconate] 324 MG) PO SCH (18:15)
[2018-11-10] MEDS: IPRATROPIUM-ALBUTEROL 3 ML NEB INHALATION SCH ×2 (20:17→23:21)
[2018-11-10 20:26] LABS: Glucose,Whole Blood 59 mg/dL (75-99)
[2018-11-10] MEDS: INSULIN ASPART 100 UNIT/ML 1 ML 10 ML VIAL SQ SCH (20:35)
[2018-11-10] MEDS: DILTIAZEM ORAL 30 MG TAB PO SCH (20:44)
[2018-11-10] MEDS: SODIUM CHLORIDE 0.9% 1,000 ML IV SCH (20:44)
[2018-11-10] MEDS: HYDROXYCHLOROQUINE SULFATE 200 MG TAB PO SCH (20:44)
[2018-11-10 20:51] LABS: Glucose,Whole Blood 88 mg/dL (75-99)
[2018-11-10] MEDS ORDERED: FUROSEMIDE 40 MG TAB PO SCH (21:00)
[2018-11-10] MEDS ORDERED: BISACODYL 10 MG SUPP RECTAL PRN (21:58)
[2018-11-10] MEDS: FUROSEMIDE 10 MG/ML 4 ML VIAL IV SCH (22:19)
--- NOTE | 2018-11-10 23:02 | HP ---
HISTORY AND PHYSICAL DATE OF SERVICE: 11/10/2018 CHIEF COMPLAINT: Shortness of breath. HISTORY OF PRESENT ILLNESS: This 78-year-old woman with a past medical history of multiple medical problems including history of atrial fibrillation, CAD, diabetes, history of GERD, hyperlipidemia, hypertension, history of sleep apnea, CPAP, history of home O2, being followed by Dr. Bailey in the outpatient setting, not feeling well over the past several days. Patient presents with shortness of breath increasing with cough and the patient also had some recent nosebleed from the right nose. The balloon was placed about 7 days ago and the patient having cough and sputum and the patient came to [facility] and was admitted for further evaluation. White count is elevated. Chest x-ray showed bilateral lesions. There is no history of fever, rigors or chills. No history of headache, loss of conscious, seizures. Troponin 0.067. PAST MEDICAL HISTORY: History of atrial fibrillation, CAD, diabetes type 2, history of hypertension, hyperlipidemia, history of DJD, history of pneumonia, sleep apnea, anxiety and depression. MEDICATIONS: Prior to admission include home medications are: 1. Lantus SoloSTAR 25 units subcu daily. 2. [place] 5 mg q.6h p.r.n. 3. Ventolin HFA 2 puffs q.4h p.r.n. 4. Tylenol 650 q.6h p.r.n. 5. Tums 500 mg t.i.d. p.r.n. 6. Dulcolax 10 mg rectally p.r.n. 7. Vitamin D3 2000 daily. 9. Zoloft 100 mg p.o. daily. 10.Sennas-S 2 tablets p.o. q.6 hours add p.r.n. 11.Vitamin C 500 mg p.o. daily. 12.Omeprazole 20 mg p.o. daily. 13.Mycostatin 1 application b.i.d. p.r.n. 14.Toprol XL 150 mg p.o. daily. 15.Melatonin 3 mg p.o. q.h.s. 16.Magnesium oxide 400 mg p.o. daily. 17.DuoNeb q.i.d. 18.Plaquenil 200 mg p.o. b.i.d. 19.Lispro b.i.d. 20.Lasix 40 mg p.o. b.i.d. 21.Iron gluconate 320 mg Tuesday, Tuesday, Tuesday. 22.Cardizem 30 mg p.o. daily. 23.Lipitor 10 mg daily. 24.Ecotrin 81 mg. 25.Zyloprim 300 mg p.o. daily. ALLERGIES: IODINATED CONTRAST DYE, PENICILLIN, VANCOMYCIN. FAMILY HISTORY: History of CAD, enlarged heart. SOCIAL HISTORY: Remote history of smoking. No history of alcohol intake. REVIEW OF SYSTEMS: ENT: Diminished vision, diminished hearing. CARDIOVASCULAR: As mentioned earlier. RESPIRATORY: As mentioned earlier. GI no nausea or vomiting. : No dysuria. NERVOUS SYSTEM: No numbness or weakness. ALLERGY/IMMUNOLOGY: No asthma or hayfever. MUSCULOSKELETAL: As mentioned earlier. HEMATOLOGY/ONCOLOGY: No history of anemia. ENDOCRINE: Diabetes. CONSTITUTIONAL: As mentioned earlier. Dermatology: Negative. Rheumatology: Negative. Psychiatry: As mentioned earlier. PHYSICAL EXAM: The patient is alert and oriented times three. Pulse is 82, blood pressure 170/ 56, respiration 18, temperature normal, pulse ox 94% on 4 L. Temperature is 98.4. HEENT: Conjunctivae normal. Oral mucosa moist. NECK is no jugular venous distention. No carotid bruit. No lymph node enlargement. CARDIOVASCULAR SYSTEM: S1, S2. RESPIRATORY: Breath sounds diminished in the bases. Bilateral scattered rhonchi and crackles. ABDOMEN: Soft, nontender. No mass palpable. Legs no edema. No swelling. NERVOUS SYSTEM: Higher functions as mentioned earlier. Moves all four extremities. No focal deficits. Lymphatics: No lymph nodes palpable in the neck, axillae or groin. SKIN: No ulcer. No rash. No bleeding. LAB STUDIES: WBC 12.8, hemoglobin 12.2, otherwise glucose 70 and 59. The total bilirubin is 1.4, alkaline phosphatase 132. Troponin 0.06. ASSESSMENT: 1. Chronic obstructive pulmonary disease acuter exacerbation, acute bilateral pneumonia possibly gram-negative, possibly aspiration. 2. Rule out congestive heart failure acute exacerbation with acute on chronic diastolic dysfunction ejection fraction 55-60 percent in the recent 2D echo. 3. Moderate mitral regurgitation and mild aortic stenosis. 4. Increased bilirubin. 5. Increased AST. 6. Troponin 0.062 indeterminate. 7. History of atrial fibrillation. 8. History of coronary artery disease. 9. Diabetes mellitus type 2. 10.Gastroesophageal reflux disease. 11.Hypertension. 12.Hyperlipidemia. 13.History of degenerative joint disease. 14.History of pneumonia. 15.History of recent epistaxis. 16.History of tonsillectomy. 17.History of anxiety, depression. RECOMMENDATIONS AND DISCUSSION: In this 78-year-old woman who presented with multiple complex medical issues, we will monitor the patient closely, continue the current medications, management and we will initiate broad-spectrum IV antibiotics. Obtain cultures. Pulmonary consultation with Dr. Hamilton. I would also consult Cardiology and continue the Lasix empirically also. Overall prognosis guarded because of multiple complex medical issues. Further recommendations to follow. BNP is elevated. The patient lives in [facility]. Medication reconciliation done. I would also recommend Accu-Cheks a.c. and at bedtime, scale also. Prognosis guarded because of multiple complex medical issues. Further recommendations to follow. MMODL / IJN: [id number] / MTDD
[2018-11-10] MEDS: MELATONIN 3 MG TABLET PO SCH (23:12)
[2018-11-11] MEDS: guaiFENesin SYRUP 100MG/5ML 200 MG/10 ML CUP PO PRN ×2 (00:32→21:05)
[2018-11-11] MEDS: IPRATROPIUM-ALBUTEROL 3 ML NEB INHALATION SCH ×5 (03:04→21:03)
[2018-11-11 06:19] LABS: Glucose,Whole Blood 71 mg/dL (75-99)
[2018-11-11 06:42] LABS: Basophils # (A) 0.1 k/uL (0-0.2); Basophils % (A) 1 %; Eosinophils # (A) 0.1 k/uL (0-0.7); Eosinophils % (A) 1 %; HCT 35.4 % (34.0-46.0); HGB 11.2 gm/dL (11.4-16.0); Hypochromasia Slight; Lymphocytes # (A) 0.9 k/uL (1.0-4.8); Lymphocytes % (A) 7 %; MCH 29.2 pg (25.0-35.0); MCHC 31.5 g/dL (31.0-37.0); MCV 92.5 fL (80.0-100.0); Mean Platelet Volume 6.8; Monocytes # (A) 0.6 k/uL (0-1.0); Monocytes % (A) 5 %; Neutrophils # (A) 11.3 k/uL (1.3-7.7); Neutrophils % (A) 86 %; Platelet Count 304 k/uL (150-450); RBC 3.83 m/uL (3.80-5.40); RDW 14.9 % (11.5-15.5); WBC 13.1 k/uL (3.8-10.6)
[2018-11-11] MEDS: INSULIN ASPART 100 UNIT/ML 1 ML 10 ML VIAL SQ SCH ×4 (06:47→20:57)
[2018-11-11] MEDS: PANTOPRAZOLE 40 MG TABLET PO SCH (06:50)
[2018-11-11 06:53] LABS: Calcium 9.2 mg/dL (8.4-10.2); Potassium 3.5 mmol/L (3.5-5.1)
--- NOTE | 2018-11-11 07:42 | XR ---
EXAMINATION TYPE: XR chest 2V DATE OF EXAM: 11/11/2018 HISTORY: pneumonia. REFERENCE: Previous study dated 11/10/2018. FINDINGS: Unfortunately, the patient's head projects over the upper chest. The heart is enlarged. There is prominence of the pulmonary arteries. There is improved aeration of t he right lung. There is mild blunting of the left CP angle. IMPRESSION: 1. CARDIOMEGALY WITH PROMINENCE OF THE PULMONARY ARTERIES SUGGESTS SOME PULMONARY ARTERY HYPERTENSION . 2. IMPROVED AERATION, RIGHT LUNG. 3. I COULD NOT EXCLUDE SMALL, BILATERAL EFFUSIONS.
[2018-11-11 07:43] LABS: Glucose,Whole Blood 150 mg/dL (75-99)
[2018-11-11] MEDS: HEPARIN SODIUM,PORCINE 5,000 UNIT/ML 1 ML VIAL SQ SCH ×2 (08:18→21:05)
[2018-11-11] MEDS: ALLOPURINOL 300 MG TAB PO SCH (08:18)
[2018-11-11] MEDS: ATORVASTATIN 10 MG TAB PO SCH (08:18)
[2018-11-11] MEDS: ASPIRIN 81 MG PO SCH (08:18)
[2018-11-11] MEDS: MAGNESIUM OXIDE 400 MG TAB PO SCH (08:18)
[2018-11-11] MEDS: SERTRALINE 100 MG TAB PO SCH (08:18)
[2018-11-11] MEDS: HYDROXYCHLOROQUINE SULFATE 200 MG TAB PO SCH ×2 (08:18→21:05)
[2018-11-11] MEDS: AZITHROMYCIN 500 MG TAB PO SCH (08:19)
[2018-11-11] MEDS: METOPROLOL SUCCINATE (ER) 25 MG TAB.ER.24H PO SCH (08:19)
[2018-11-11] MEDS: DILTIAZEM ORAL 30 MG TAB PO SCH ×3 (08:19→21:05)
[2018-11-11] MEDS: ASCORBIC ACID 500 MG TAB PO SCH (08:19)
[2018-11-11] MEDS: CHOLECALCIFEROL 1,000 UNIT TAB PO SCH (08:19)
[2018-11-11] MEDS: FUROSEMIDE 10 MG/ML 4 ML VIAL IV SCH ×2 (08:19→21:05)
[2018-11-11 11:15] LABS: Glucose,Whole Blood 140 mg/dL (75-99)
[2018-11-11] MEDS: INSULIN DETEMIR 100 UNIT/ML 10 ML VIAL SQ SCH (12:16)
--- NOTE | 2018-11-11 12:23 | P.CNPUL ---
History of Present Illness Consult date: 11/11/18 Requesting physician: Valery Manzo Reason for consult: dyspnea Chief complaint: Shortness of breath, cough, congestion History of present illness: This is a very pleasant 78-year-old female patient who follows with Dr. Bailey as her primary care physician. She has history of atrial fibrillation, coronary artery disease, diabetes Eric, gastroesophageal reflux disease, hyperlipidemia, hypertension, osteoarthritis, obstructive sleep apnea, chronic obstructive pulmonary disease on oxygen at 3 L at home. Previous smoking history. The patient recently had undergone a procedure for a nosebleed and a few days later developed increasing shortness of breath cough and congestion and was brought here to the emergency room yesterday for the same. As x-ray revealed a patchy right perihilar infiltrate and cardiomegaly. He did have O2 saturation of 81% on room air on presentation. We're consulted for the same. She is seen today on the selective care unit. She is awake and alert sitting up in a chair at the bedside. She is somewhat of a poor historian. She currently denies any worsening shortness of breath. She has a loose nonproductive cough. Taking O2 saturations in the upper 90s on 4 L/m per nasal cannula. She's been afebrile. Hemodynamically stable. Sputum cultures pending. White count 13.1. Hemoglobin 11.2. Creatinine 0.88. Influenza screen negative. Review of Systems ROS unobtainable: due to mental status Past Medical History Past Medical History: Atrial Fibrillation, Coronary Artery Disease (CAD), Diabetes Mellitus, GERD/Reflux, Hyperlipidemia, Hypertension, Osteoarthritis (OA ), Pneumonia, Sleep Apnea/CPAP/BIPAP Additional Past Medical History / Comment(s): home 02 3 liters atc,lt lower leg wound History of Any Multi-Drug Resistant Organisms: None Reported Past Surgical History: Orthopedic Surgery, Tonsillectomy Additional Past Surgical History / Comment(s): kerwin cataracts removed has lens implants, kerwin knee replacments Past Anesthesia/Blood Transfusion Reactions: Motion Sickness Additional Past Anesthesia/Blood Transfusion Reaction / Comment(s): clausterphobia Past Psychological History: Anxiety, Depression Additional Psychological History / Comment(s): lives at [facility]. does has laboratory helper for bathing, med management. uses walker/w/c/cane. has raised toilet seat, o2 3 liters n/c cpap machine Smoking Status: Former smoker Past Alcohol Use History: None Reported Additional Past Alcohol Use History / Comment(s): started smoking age 21 (196) and quit 1972 smopked less than 1 ppd. no alcohol now Past Drug Use History: None Reported - Past Family History Father Family Medical History: Coronary Artery Disease (CAD) Additional Family Medical History / Comment(s): enlarged heart Mother Family Medical History: Dementia, Hypertension Additional Family Medical History / Comment(s): hysterectomy-d/t benign tumor Medications and Allergies Home Medications Medication Instructions Recorded Confirmed Type Acetaminophen Tab [Tylenol] 650 mg PO Q6H PRN 06/02/18 11/10/18 History Albuterol Inhaler [Ventolin Hfa 2 puff INHALATION RT-Q4H PRN 06/02/18 11/10/18 History Inhaler] Ascorbic Acid [Vitamin C] 500 mg PO DAILY 06/02/18 11/10/18 History Aspirin EC [Ecotrin Low Dose] 81 mg PO DAILY 06/02/18 11/10/18 History Atorvastatin [Lipitor] 10 mg PO DAILY 06/02/18 11/10/18 History Cholecalciferol (Vitamin D3) 2,000 unit PO DAILY 06/02/18 11/10/18 History [Vitamin D3] Ferrous Gluconate 324 mg PO MOWEFR 06/02/18 11/10/18 History Furosemide [Lasix] 40 mg PO BID 06/02/18 11/10/18 History Insulin Glargine,Hum.rec.anlog 25 unit SQ DAILY 06/02/18 11/10/18 History [Lantus Solostar] Insulin Lispro [humaLOG Kwikpen] See Protocol SQ BID 06/02/18 11/10/18 History Ipratropium-Albuterol Nebulize 3 ml INHALATION RT-QID 06/02/18 11/10/18 History [Duoneb 0.5 mg-3 mg/3 ml Soln] Nystatin 100,000Unit/gm Cream 1 applic TOPICAL BID PRN 06/02/18 11/10/18 History [Mycostatin Cream] Sertraline [Zoloft] 100 mg PO DAILY 06/02/18 11/10/18 History Diltiazem Oral [Cardizem*] 30 mg PO TID #90 tab 06/05/18 11/10/18 Rx HYDROcodone/APAP 5-325MG [[place] 1 tab PO Q6HR PRN #12 tab 06/05/18 11/10/18 Rx 5-325] Metoprolol Succinate (ER) [Toprol 25 mg PO DAILY #30 tab.er.24h 06/05/18 Rx XL] Allopurinol [Zyloprim] 300 mg PO DAILY 11/10/18 11/10/18 History Bisacodyl [Dulcolax] 10 mg RECTAL ONCE PRN 11/10/18 11/10/18 History Calcium Carbonate [Tums] 500 mg PO TID PRN 11/10/18 11/10/18 History Hydroxychloroquine Sulfate 200 mg PO BID 11/10/18 11/10/18 History [Plaquenil] Magnesium Oxide [Mag-Ox] 400 mg PO DAILY 11/10/18 11/10/18 History Melatonin 3 mg PO HS 11/10/18 11/10/18 History Omeprazole 20 mg PO DAILY 11/10/18 11/10/18 History Sennosides/Docusate Sodium 2 tab PO TUTHSA PRN 11/10/18 11/10/18 History [Senna-S Laxative Tablet] Sodium Chloride [[place]] 2 spray EA NOSTRIL TID 11/10/18 11/10/18 History Allergies Allergy/AdvReac Type Severity Reaction Status Date / Time Iodinated Contrast- Oral and Allergy Unknown Verified 11/10/18 16:01 IV Dye Penicillins Allergy Unknown Verified 11/10/18 16:01 vancomycin Allergy Unknown Verified 11/10/18 16:01 Physical Exam Vitals: Vital Signs Temp Pulse Pulse Resp BP BP BP 11/11/18 11:32 72 11/11/18 11:25 78 11/11/18 08:00 98.7 F 65 18 109/50 11/11/18 07:44 70 11/11/18 07:37 72 11/11/18 03:18 99 F 69 18 97/41 11/11/18 03:13 74 11/11/18 03:04 70 11/11/18 00:00 100 F H 73 19 128/56 11/10/18 23:31 88 11/10/18 23:21 86 11/10/18 20:35 72 11/10/18 20:17 72 11/10/18 20:00 99.6 F 88 19 121/69 11/10/18 18:53 98.4 F 11/10/18 18:00 82 18 117/56 11/10/18 17:00 74 17 104/49 11/10/18 16:00 70 22 113/69 11/10/18 15:48 81 11/10/18 15:36 73 11/10/18 15:08 11/10/18 15:06 25 H 11/10/18 15:05 98.0 F 73 25 H 124/75 11/10/18 15:00 79 16 116/66 11/10/18 14:56 Pulse Ox 11/11/18 11:32 11/11/18 11:25 11/11/18 08:00 97 11/11/18 07:44 11/11/18 07:37 11/11/18 03:18 98 11/11/18 03:13 11/11/18 03:04 11/11/18 00:00 99 11/10/18 23:31 11/10/18 23:21 11/10/18 20:35 11/10/18 20:17 11/10/18 20:00 96 11/10/18 18:53 11/10/18 18:00 95 11/10/18 17:00 92 L 11/10/18 16:00 93 L 11/10/18 15:48 11/10/18 15:36 11/10/18 15:08 93 L 11/10/18 15:06 11/10/18 15:05 81 L 11/10/18 15:00 93 L 11/10/18 14:56 93 L Intake and Output 11/10/18 11/11/18 11/11/18 22:59 06:59 14:59 Other: Voiding Method Diaper Diaper Diaper Incontinent Incontinent Incontinent # Voids 2 2 Weight 95.5 kg 96 kg - Constitutional General appearance: mild distress, morbidly obese - EENT Eyes: EOMI, PERRLA ENT: hard of hearing Ears: bilateral: normal - Neck Neck: normal ROM Carotids: bilateral: upstroke normal Thyroid: bilateral: normal size - Respiratory Respiratory: right: rhonchi - Cardiovascular Rhythm: regular Heart sounds: normal: S1, S2 - Gastrointestinal General gastrointestinal: normal bowel sounds - Integumentary Integumentary: normal turgor - Neurologic Neurologic: CNII-XII intact - Musculoskeletal Musculoskeletal: generalized weakness - Psychiatric Alert and oriented to person. Poor historian. Results - Laboratory Findings CBC and BMP: 11/11/18 06:05 11/11/18 06:05 PT/INR, D-dimer PT 10.9 sec (9.0-12.0) 11/10/18 15:00 INR 1.0 (<1.2) 11/10/18 15:00 Abnormal lab findings: Abnormal Labs 11/10/18 11/10/18 11/10/18 15:00 15:00 15:00 WBC 12.8 H Hgb Neutrophils # 11.2 H Lymphocytes # 0.8 L Carbon Dioxide BUN 38 H Glucose 70 L POC Glucose (mg/dL) Total Bilirubin 1.4 H AST 45 H Alkaline Phosphatase 132 H CK-MB (CK-2) 6.3 H Troponin I 0.067 H* 11/10/18 11/11/18 11/11/18 20:25 06:05 06:05 WBC 13.1 H Hgb 11.2 L Neutrophils # 11.3 H Lymphocytes # 0.9 L Carbon Dioxide 32 H BUN 39 H Glucose 64 L POC Glucose (mg/dL) 59 L Total Bilirubin AST Alkaline Phosphatase CK-MB (CK-2) Troponin I 11/11/18 11/11/18 11/11/18 06:18 07:31 11:10 WBC Hgb Neutrophils # Lymphocytes # Carbon Dioxide BUN Glucose POC Glucose (mg/dL) 71 L 150 H 140 H Total Bilirubin AST Alkaline Phosphatase CK-MB (CK-2) Troponin I - Diagnostic Findings Chest x-ray: image reviewed Assessment and Plan Assessment: Impression: #1 Acute hypoxic respiratory failure secondary to a right perihilar infiltrate suspect aspiration pneumonia. #2 Recent procedure for epistaxis. #3 History of atrial fibrillation, currently sinus rhythm. #4 Coronary artery disease. #5 Diabetes mellitus. #6 Gastroesophageal reflux disease. #7 Hypertension. #8 Hyperlipidemia. #9 Osteoarthritis. #10 Former smoker. #11 Anxiety/depression. Plan: The patient was seen and evaluated by Dr. Hamilton. Chest x-ray and labs were reviewed. Follow-up chest x-ray artery showing improvement. We will continue with antibiotics in the form of ceftriaxone and azithromycin. Continue Bronchodilators. Continue diuretics. Titrate down the FiO2 as tolerated. Heparin for DVT prophylaxis. We'll continue to follow and make further recommendations based on her clinical status. I, the cosigning physician, performed a history & physical examination of the patient. Lungs sounds echo the posterior bases. Maintaining good O2 saturations in the 90s on 4 L/m per nasal cannula. I discussed the assessment and plan of care with my nurse practitioner, Codi Kasper. I attest to the above note as dictated by her. Time with Patient: Greater than 30
[2018-11-11 14:23] LABS: Hemoglobin A1C 8.4 % (4.0-6.0)
--- NOTE | 2018-11-11 15:08 | P.CRDCN ---
History of Present Illness Consult date: 11/11/18 Requesting physician: Iam E Sheet History of present illness: This is a very pleasant 78-year-old female patient she is a fairly poor historian, who has history of atrial fibrillation, coronary artery disease, diabetes , gastroesophageal reflux disease, hyperlipidemia, hypertension, osteoarthritis, obstructive sleep apnea, chronic obstructive pulmonary disease on oxygen at 3 L at home. Previous smoking history. The patient recently had undergone a procedure for a nosebleed and a few days later developed increasing shortness of breath cough and congestion and was brought here to the emergency room yesterday for the same. Initial Chest -ray revealed a patchy right perihilar infiltrate and cardiomegaly. Repeat chest x-ray performed today showed cardiomegaly with prominence of the pulmonary arteries suggesting some pulmonary artery hypertension. Cannot exclude bilateral effusions. White blood cell count 13.1, hemoglobin 11.2, platelet count 304. Sodium 144, potassium 3.5, BUN 39, creatinine 0.8. Magnesium 1.4, alk phos 132, AST 45, ALT 47. Initial troponin 0.067. BNP level 13,600. Influenza A and B are negative. Patient was initiated on IV antibiotics for pneumonia, she has also been started on IV Lasix. According to the patient, today she started putting out a significant amount of urine. He is to cough up dark wall sputum. Blood pressure this morning 122/60 with a heart rate in the 60s, 96% on 4 L. Past Medical History Past Medical History: Atrial Fibrillation, Coronary Artery Disease (CAD), Diabetes Mellitus, GERD/Reflux, Hyperlipidemia, Hypertension, Osteoarthritis (OA ), Pneumonia, Sleep Apnea/CPAP/BIPAP Additional Past Medical History / Comment(s): home 02 3 liters atc,lt lower leg wound History of Any Multi-Drug Resistant Organisms: None Reported Past Surgical History: Orthopedic Surgery, Tonsillectomy Additional Past Surgical History / Comment(s): kerwin cataracts removed has lens implants, kerwin knee replacments Past Anesthesia/Blood Transfusion Reactions: Motion Sickness Additional Past Anesthesia/Blood Transfusion Reaction / Comment(s): clausterphobia Past Psychological History: Anxiety, Depression Additional Psychological History / Comment(s): lives at [facility]. does has boat loader helper for bathing, med management. uses walker/w/c/cane. has raised toilet seat, o2 3 liters n/c cpap machine Smoking Status: Former smoker Past Alcohol Use History: None Reported Additional Past Alcohol Use History / Comment(s): started smoking age 21 (196) and quit 1972 smopked less than 1 ppd. no alcohol now Past Drug Use History: None Reported - Past Family History Father Family Medical History: Coronary Artery Disease (CAD) Additional Family Medical History / Comment(s): enlarged heart Mother Family Medical History: Dementia, Hypertension Additional Family Medical History / Comment(s): hysterectomy-d/t benign tumor Medications and Allergies Home Medications Medication Instructions Recorded Confirmed Type Acetaminophen Tab [Tylenol] 650 mg PO Q6H PRN 06/02/18 11/10/18 History Albuterol Inhaler [Ventolin Hfa 2 puff INHALATION RT-Q4H PRN 06/02/18 11/10/18 History Inhaler] Ascorbic Acid [Vitamin C] 500 mg PO DAILY 06/02/18 11/10/18 History Aspirin EC [Ecotrin Low Dose] 81 mg PO DAILY 06/02/18 11/10/18 History Atorvastatin [Lipitor] 10 mg PO DAILY 06/02/18 11/10/18 History Cholecalciferol (Vitamin D3) 2,000 unit PO DAILY 06/02/18 11/10/18 History [Vitamin D3] Ferrous Gluconate 324 mg PO MOWEFR 06/02/18 11/10/18 History Furosemide [Lasix] 40 mg PO BID 06/02/18 11/10/18 History Insulin Glargine,Hum.rec.anlog 25 unit SQ DAILY 06/02/18 11/10/18 History [Lantus Solostar] Insulin Lispro [humaLOG Kwikpen] See Protocol SQ BID 06/02/18 11/10/18 History Ipratropium-Albuterol Nebulize 3 ml INHALATION RT-QID 06/02/18 11/10/18 History [Duoneb 0.5 mg-3 mg/3 ml Soln] Nystatin 100,000Unit/gm Cream 1 applic TOPICAL BID PRN 06/02/18 11/10/18 History [Mycostatin Cream] Sertraline [Zoloft] 100 mg PO DAILY 06/02/18 11/10/18 History Diltiazem Oral [Cardizem*] 30 mg PO TID #90 tab 06/05/18 11/10/18 Rx HYDROcodone/APAP 5-325MG [[place] 1 tab PO Q6HR PRN #12 tab 06/05/18 11/10/18 Rx 5-325] Metoprolol Succinate (ER) [Toprol 25 mg PO DAILY #30 tab.er.24h 06/05/18 Rx XL] Allopurinol [Zyloprim] 300 mg PO DAILY 11/10/18 11/10/18 History Bisacodyl [Dulcolax] 10 mg RECTAL ONCE PRN 11/10/18 11/10/18 History Calcium Carbonate [Tums] 500 mg PO TID PRN 11/10/18 11/10/18 History Hydroxychloroquine Sulfate 200 mg PO BID 11/10/18 11/10/18 History [Plaquenil] Magnesium Oxide [Mag-Ox] 400 mg PO DAILY 11/10/18 11/10/18 History Melatonin 3 mg PO HS 11/10/18 11/10/18 History Omeprazole 20 mg PO DAILY 11/10/18 11/10/18 History Sennosides/Docusate Sodium 2 tab PO TUTHSA PRN 11/10/18 11/10/18 History [Senna-S Laxative Tablet] Sodium Chloride [[place]] 2 spray EA NOSTRIL TID 11/10/18 11/10/18 History Allergies Allergy/AdvReac Type Severity Reaction Status Date / Time Iodinated Contrast- Oral and Allergy Unknown Verified 11/10/18 16:01 IV Dye Penicillins Allergy Unknown Verified 11/10/18 16:01 vancomycin Allergy Unknown Verified 11/10/18 16:01 Physical Exam Vitals: Vital Signs Temp Pulse Pulse Resp BP BP BP 11/11/18 12:00 98.8 F 69 18 122/69 11/11/18 11:32 72 11/11/18 11:25 78 11/11/18 08:00 98.7 F 65 18 109/50 11/11/18 07:44 70 11/11/18 07:37 72 11/11/18 03:18 99 F 69 18 97/41 11/11/18 03:13 74 11/11/18 03:04 70 11/11/18 00:00 100 F H 73 19 128/56 11/10/18 23:31 88 11/10/18 23:21 86 01/04/19 20:35 72 11/10/18 20:17 72 11/10/18 20:00 99.6 F 88 19 121/69 11/10/18 18:53 98.4 F 11/10/18 18:00 82 18 117/56 11/10/18 17:00 74 17 104/49 11/10/18 16:00 70 22 113/69 11/10/18 15:48 81 11/10/18 15:36 73 11/10/18 15:08 11/10/18 15:06 25 H 11/10/18 15:05 98.0 F 73 25 H 124/75 11/10/18 15:00 79 16 116/66 11/10/18 14:56 Pulse Ox 11/11/18 12:00 96 11/11/18 11:32 11/11/18 11:25 11/11/18 08:00 97 11/11/18 07:44 11/11/18 07:37 11/11/18 03:18 98 11/11/18 03:13 11/11/18 03:04 11/11/18 00:00 99 11/10/18 23:31 11/10/18 23:21 11/10/18 20:35 11/10/18 20:17 11/10/18 20:00 96 11/10/18 18:53 11/10/18 18:00 95 11/10/18 17:00 92 L 11/10/18 16:00 93 L 11/10/18 15:48 11/10/18 15:36 11/10/18 15:08 93 L 11/10/18 15:06 11/10/18 15:05 81 L 11/10/18 15:00 93 L 11/10/18 14:56 93 L Intake and Output 11/10/18 11/11/18 11/11/18 22:59 06:59 14:59 Intake Total 240 Balance 240 Intake: Oral 240 Other: Voiding Method Diaper Diaper Diaper Incontinent Incontinent Incontinent # Voids 2 2 Weight 95.5 kg 96 kg PHYSICAL EXAMINATION: GENERAL: 78-year-old female in no acute distress at the time of my examination HEENT: Head is atraumatic, normocephalic. Pupils equal, round. Sclera anicteric. Conjunctiva are clear. Mucous membranes of the mouth are moist. Neck is supple. There is elevated jugular venous pressure. No carotid bruit is heard. HEART EXAMINATION: Heart S1, S2 normal. No murmur or gallop heard. CHEST EXAMINATION: Lungs reveal scattered coarse rhonchi and wheezing throughout , diminished air entry to the bases. ABDOMEN: Soft, nontender. Bowel sounds are heard. No organomegaly noted. EXTREMITIES: 2+ peripheral pulses with evidence of peripheral edema and no calf tenderness noted. NEUROLOGIC patient is awake, alert and oriented 3 . . Results 11/11/18 06:05 11/11/18 06:05 Cardiac Enzymes 11/10/18 11/10/18 Range/Units 15:00 15:00 AST 45 H (14-36) U/L CK-MB (CK-2) 6.3 H (0.0-2.4) ng/mL Troponin I 0.067 H* (0.000-0.034) ng/mL Coagulation 11/10/18 Range/Units 15:00 PT 10.9 (9.0-12.0) sec APTT 23.7 (22.0-30.0) sec CBC 11/10/18 11/11/18 Range/Units 15:00 06:05 WBC 12.8 H 13.1 H (3.8-10.6) k/uL RBC 4.21 3.83 (3.80-5.40) m/uL Hgb 12.2 11.2 L (11.4-16.0) gm/dL Hct 38.4 35.4 (34.0-46.0) % Plt Count 335 304 (150-450) k/uL Comprehensive Metabolic Panel 11/10/18 11/11/18 Range/Units 15:00 06:05 Sodium 140 144 (137-145) mmol/L Potassium 3.7 3.5 (3.5-5.1) mmol/L Chloride 100 103 (98-107) mmol/L Carbon Dioxide 28 32 H (22-30) mmol/L BUN 38 H 39 H (7-17) mg/dL Creatinine 0.72 0.88 (0.52-1.04) mg/dL Glucose 70 L 64 L (74-99) mg/dL Calcium 9.7 9.2 (8.4-10.2) mg/dL AST 45 H (14-36) U/L ALT 47 (9-52) U/L Alkaline Phosphatase 132 H (38-126) U/L Total Protein 6.8 (6.3-8.2) g/dL Albumin 3.5 (3.5-5.0) g/dL Current Medications Generic Name Dose Route Start Last Admin Trade Name Freq PRN Reason Stop Dose Admin Acetaminophen 650 mg 11/10/18 18:09 11/10/18 23:12 Tylenol Tab PO 650 mg Q6H PRN Administration MILD PAIN/FEVER Hydrocodone Bitart/Acetaminophen 1 each 11/10/18 18:09 [place] 5-325 PO Q6HR PRN MODERATE Pain Albuterol/Ipratropium 3 ml 11/10/18 20:00 11/11/18 11:24 Duoneb 0.5 Mg-3 Mg/3 Ml Soln INHALATION 3 ml RT-Q4H BRENDEN Administration Allopurinol 300 mg 11/11/18 09:00 11/11/18 08:18 Zyloprim PO 300 mg DAILY [facility] Administration Alprazolam 0.25 mg 11/10/18 22:13 Xanax PO TID PRN Anxiety Ascorbic Acid 500 mg 11/11/18 09:00 11/11/18 08:19 Vitamin C PO 500 mg DAILY [facility] Administration Aspirin 81 mg 11/11/18 09:00 11/11/18 08:18 Aspirin PO 81 mg DAILY [facility] Administration Atorvastatin Calcium 10 mg 11/11/18 09:00 11/11/18 08:18 Lipitor PO 10 mg DAILY [facility] Administration Azithromycin 500 mg 11/11/18 09:00 11/11/18 08:19 Zithromax PO 500 mg DAILY [facility] Administration Bisacodyl 10 mg 11/10/18 21:58 Dulcolax RECTAL ONCE PRN Constipation Calcium Carbonate/Glycine 500 mg 11/10/18 18:09 Tums PO TID PRN GI Upset Cholecalciferol 2,000 unit 11/11/18 09:00 11/11/18 08:19 Vitamin D3 PO 2,000 unit DAILY [facility] Administration Diltiazem HCl 30 mg 11/10/18 22:00 11/11/18 08:19 Cardizem Oral PO 30 mg TID [facility] Administration Furosemide 40 mg 11/10/18 23:00 11/11/18 08:19 Lasix IV 40 mg Q12HR [facility]END[facility] Administration Guaifenesin 200 mg 11/10/18 23:34 11/11/18 00:32 Robitussin PO 200 mg Q6H PRN Administration Cough Heparin Sodium (Porcine) 5,000 unit 11/11/18 09:00 11/11/18 08:18 Heparin SQ 5,000 unit Q12HR [facility] Administration Hydroxychloroquine Sulfate 200 mg 11/10/18 21:00 11/11/18 08:18 Plaquenil PO 200 mg BID [facility] Administration Sodium Chloride 1,000 mls @ 20 mls/hr 11/10/18 15:22 11/10/18 20:36 Saline 0.9% IV 11/11/18 15:21 Not Given .Q24H STA Ceftriaxone Sodium 1,000 mg/ 50 mls @ 100 mls/hr 11/11/18 09:00 11/11/18 08: 15 Sodium Chloride IVPB 11/14/18 09:01 100 mls/hr Q24HR [facility] Administration Sodium Chloride 1,000 mls @ 20 mls/hr 11/10/18 18:15 11/10/18 20:44 Saline 0.9% IV 20 mls/hr .Q24H [facility] Administration Insulin Aspart 0 unit 11/10/18 21:00 11/11/18 12:08 Novolog SQ Not Given ACHS [facility] Protocol Insulin Detemir 25 unit 11/11/18 09:00 11/11/18 12:16 Levemir SQ 25 unit DAILY [facility] Administration Magnesium Oxide 400 mg 11/11/18 09:00 11/11/18 08:18 Mag-Ox PO 400 mg DAILY [facility] Administration Melatonin 3 mg 11/10/18 21:00 11/10/18 23:12 Melatonin PO 3 mg HS [facility] Administration Methylprednisolone Sodium Succinate 40 mg 11/11/18 16:00 Solu-Medrol IV Q8HR [facility] Metoprolol Succinate 25 mg 11/11/18 09:00 11/11/18 08:19 Toprol Xl PO 25 mg DAILY [facility] Administration Miscellaneous Information 1 each 11/10/18 18:05 Pneumonia Protocol Utilized PO ONCE PRN Per Protocol Nystatin 1 applic 11/10/18 18:09 Mycostatin Cream TOPICAL BID PRN Rash Pantoprazole Sodium 40 mg 11/11/18 07:30 11/11/18 06:50 Protonix PO 40 mg AC-[id number] [facility] Administration Senna/Docusate Sodium 2 each 11/10/18 18:09 Senokot-S PO TUTHSA PRN Constipation Sertraline HCl 100 mg 11/11/18 09:00 11/11/18 08:18 Zoloft PO 100 mg DAILY [facility] Administration Intake and Output 11/10/18 11/11/18 11/11/18 22:59 06:59 14:59 Intake Total 240 Balance 240 Intake: Oral 240 Other: Voiding Method Diaper Diaper Diaper Incontinent Incontinent Incontinent # Voids 2 2 Weight 95.5 kg 96 kg 11/11/18 06:05 11/11/18 06:05 EKG Interpretations (text) EKG shows a normal sinus rhythm with occasional PVC and nonspecific ST-T wave changes Assessment and Plan Plan: Assessment and plan #1 Acute hypoxic respiratory failure secondary to a right perihilar infiltrate suspect aspiration pneumonia. #2 Recent procedure for epistaxis. #3 History of atrial fibrillation, , paroxysmal, currently sinus rhythm. #4 Coronary artery disease. Follows with a centrifugal screen tender out of town #5 Diabetes mellitus. #6 Gastroesophageal reflux disease. #7 Hypertension. #8 Hyperlipidemia. #9 Osteoarthritis. #10 Former smoker. #11 diastolic congestive heart failure acute on chronic. Plan We will continue current dose of IV Lasix, continue to monitor intake and output along with daily weights and daily lytes BUN and creatinine. Patient did have an echocardiogram with Doppler study performed in May 2018 which revealed moderate to severe aortic valve sclerosis, severe mitral calcification , moderate mitral regurg, severe tricuspid regurg, severe pulmonary hypertension. We will repeat an echo on this mission. Continue to follow. DNP note has been reviewed, I agree with a documented findings and plan of care. Patient was seen and examined.
[2018-11-11 16:28] LABS: Glucose,Whole Blood 93 mg/dL (75-99)
[2018-11-11] MEDS: methylPREDNISolone SOD SUCCI 40 MG/ML 1 ML VIAL IV SCH ×2 (17:41→23:07)
[2018-11-11] MEDS: SODIUM CHLORIDE 0.9% 1,000 ML IV SCH (17:42)
[2018-11-11 20:16] LABS: Glucose,Whole Blood 59 mg/dL (75-99)
[2018-11-11 20:34] LABS: Glucose,Whole Blood 67 mg/dL (75-99)
[2018-11-11 20:53] LABS: Glucose,Whole Blood 91 mg/dL (75-99)
[2018-11-11] MEDS: MELATONIN 3 MG TABLET PO SCH (21:05)
--- NOTE | 2018-11-11 22:51 | PN ---
PROGRESS NOTE DATE OF SERVICE: 11/11/2018 This 78-year-old woman who was admitted with COPD exacerbation also had bilateral pneumonia. The patient also had CHF also. Patient also had moderate mitral regurgitation as well. The patient being closely monitored with Cardiology and pulmonology following the patient closely. Repeat chest x-ray which was personally reviewed, showed evidence of cardiomegaly and features of some CHF also. Pulmonary artery hypertension as well. PAST MEDICAL HISTORY: Reviewed. REVIEW OF SYSTEMS: CARDIOVASCULAR SYSTEM: No angina or palpitations. RESPIRATION: As mentioned earlier. GI: As mentioned earlier. : No dysuria or hematuria. CENTRAL NERVOUS SYSTEM: No focal deficits. CURRENT MEDICATIONS: Reviewed and include: 1. Tylenol 650 q.6h p.r.n. 2. [place] 5 mg. 3. DuoNeb q.i.d. 4. Zyloprim 200 mg daily. 5. Xanax 0.5 t.i.d. 6. Vitamin C 500 mg daily. 7. Aspirin 81 mg. 8. Lipitor 40 mg. 9. Zithromax 500 mg daily. 10.Dulcolax 10 mg p.r.n. 11.Tums 500 mg p.o. t.i.d. 12.Rocephin 1 g daily. 13.Vitamin D3. 14.Cardizem 30 mg daily. 15.Lasix 40 mg IV b.i.d. 16.Robitussin 200 mg q.h.s. 17.Heparin 5000 subcu b.i.d. 18.Plaquenil 200 mg p.o. b.i.d. 19.NovoLog scale. 21.Magnesium oxide 400 mg. 22.Melatonin 3 mg q.h.s. 23.Solu-Medrol 40 IV q.6 hours. 24.Toprol-XL 25 mg p.o. daily. 25.Nystatin 1 application t.i.d. 26.Protonix 40 mg. 27.Senokot-S. 28.Zoloft 100 mg daily. PHYSICAL EXAM: Patient is alert, oriented x3. Pulse 74, blood pressure 117/51, respiration 18, temperature 97.7, pulse ox 97% on 3 L. HEENT: Conjunctivae normal. Neck is no jugular venous distention. Cardiovascular: S1, S2 muffled. RESPIRATIONS: Breath sounds diminished in the bases. Bilateral scattered rhonchi and crackles. Abdomen is soft, nontender. Legs are no edema. No swelling. LABS: 13.2, hemoglobin 11.2, glucose 71 and 150. ASSESSMENT: 1. Chronic obstructive pulmonary disease acute exacerbation with acute bilateral pneumonia possibly gram-negative, possibly aspiration. 2. Congestive heart failure acute exacerbation acute on chronic diastolic dysfunction ejection fraction 55-60% on the recent 2D echo. 3. Moderate mitral regurgitation, mild aortic stenosis. 4. Increased bilirubin. 5. Increased AST. 6. Troponin 0.06, indeterminate. 7. History of atrial fibrillation. 8. History of coronary artery disease. 9. Diabetes mellitus type 2. 10.Gastroesophageal reflux disease. 11.Hypertension. 12.Hyperlipidemia. 13.History of degenerative joint disease. 14.History of pneumonia. 15.History of recent epistaxis. 17.Anxiety and depression. RECOMMENDATIONS AND DISCUSSION: Recommend to continue current medications and continue monitoring, symptomatic treatment. Currently patient is on bronchodilators. The patient is on broad- spectrum IV antibiotics. Patient was also seen by Dr. Hamilton in cardiology on consult. We will continue to monitor. Will continue with the diuretics and bronchodilators and monitor fluid and electrolytes balance closely. Guarded prognosis because of multiple complex medical issues and further recommendations to follow. A BNP level was 13,600. Troponins are noted. MMODL / IJN: [id number] / KAUSHAL
[2018-11-12] MEDS: IPRATROPIUM-ALBUTEROL 3 ML NEB INHALATION SCH ×6 (01:31→21:50)
[2018-11-12] MEDS: guaiFENesin SYRUP 100MG/5ML 200 MG/10 ML CUP PO PRN ×3 (02:14→21:23)
[2018-11-12] MEDS: ALPRAZolam 0.25 MG TAB PO PRN (02:14)
[2018-11-12 03:59] LABS: Appearance,Urine Cloudy (Clear); Bacteria,Urine Occasional /hpf; Bilirubin,Urine Negative (Negative); Blood,Urine Negative (Negative); Color,Urine Yellow; Glucose,Urine (UA) Negative (Negative); Hyaline Casts,Urine 55 /lpf (0-2); Ketones,Urine Negative (Negative); Leukocyte Esterase,Urine Moderate (Negative); Mucus,Urine Rare /hpf; Nitrite,Urine Negative (Negative); Protein,Urine Trace (Negative); RBC,Urine 1 /hpf (0-5); Specific Gravity,Urine 1.012 (1.001-1.035); Squamous Epithelial Cell,Urine 2 /hpf (0-4); WBC,Urine 1 /hpf (0-5)
[2018-11-12 05:52] LABS: Glucose,Whole Blood 178 mg/dL (75-99)
[2018-11-12] MEDS: INSULIN ASPART 100 UNIT/ML 1 ML 10 ML VIAL SQ SCH ×4 (06:05→21:21)
[2018-11-12] MEDS: PANTOPRAZOLE 40 MG TABLET PO SCH (06:22)
[2018-11-12] MEDS: methylPREDNISolone SOD SUCCI 40 MG/ML 1 ML VIAL IV SCH ×2 (07:21→16:58)
[2018-11-12] MEDS: HEPARIN SODIUM,PORCINE 5,000 UNIT/ML 1 ML VIAL SQ SCH ×2 (07:23→20:35)
[2018-11-12] MEDS: FUROSEMIDE 10 MG/ML 4 ML VIAL IV SCH (07:23)
[2018-11-12] MEDS: SERTRALINE 100 MG TAB PO SCH (07:24)
[2018-11-12] MEDS: ATORVASTATIN 10 MG TAB PO SCH (07:24)
[2018-11-12] MEDS: ASCORBIC ACID 500 MG TAB PO SCH (07:24)
[2018-11-12] MEDS: AZITHROMYCIN 500 MG TAB PO SCH (07:24)
[2018-11-12] MEDS: ASPIRIN 81 MG PO SCH (07:24)
[2018-11-12] MEDS: DILTIAZEM ORAL 30 MG TAB PO SCH (07:24)
[2018-11-12] MEDS: CHOLECALCIFEROL 1,000 UNIT TAB PO SCH (07:24)
[2018-11-12] MEDS: HYDROXYCHLOROQUINE SULFATE 200 MG TAB PO SCH ×2 (07:24→20:34)
[2018-11-12] MEDS: METOPROLOL SUCCINATE (ER) 25 MG TAB.ER.24H PO SCH (07:24)
[2018-11-12] MEDS: ALLOPURINOL 300 MG TAB PO SCH (07:24)
[2018-11-12] MEDS: MAGNESIUM OXIDE 400 MG TAB PO SCH (07:24)
[2018-11-12] MEDS: INSULIN DETEMIR 100 UNIT/ML 10 ML VIAL SQ SCH (08:37)
[2018-11-12 08:39] LABS: Basophils % (A) 0 %; Eosinophils # (A) 0.1 k/uL (0-0.7); Eosinophils % (A) 1 %; HCT 38.9 % (34.0-46.0); HGB 11.5 gm/dL (11.4-16.0); Hypochromasia Moderate; Lymphocytes # (A) 0.3 k/uL (1.0-4.8); Lymphocytes % (A) 4 %; MCH 28.5 pg (25.0-35.0); MCHC 29.6 g/dL (31.0-37.0); MCV 96.4 fL (80.0-100.0); Mean Platelet Volume 7.2; Monocytes # (A) 0.1 k/uL (0-1.0); Monocytes % (A) 1 %; Neutrophils % (A) 94 %; Platelet Count 287 k/uL (150-450); RBC 4.03 m/uL (3.80-5.40); RDW 14.8 % (11.5-15.5); WBC 8.5 k/uL (3.8-10.6)
[2018-11-12 08:46] LABS: Calcium 9.5 mg/dL (8.4-10.2); Potassium 4.4 mmol/L (3.5-5.1)
[2018-11-12 11:11] LABS: Glucose,Whole Blood 237 mg/dL (75-99)
--- NOTE | 2018-11-12 15:10 | P.PN ---
Subjective Progress Note Date: 11/12/18 This is a very pleasant 78-year-old female patient she is a fairly poor historian, who has history of atrial fibrillation, coronary artery disease, diabetes , gastroesophageal reflux disease, hyperlipidemia, hypertension, osteoarthritis, obstructive sleep apnea, chronic obstructive pulmonary disease on oxygen at 3 L at home. Previous smoking history. The patient recently had undergone a procedure for a nosebleed and a few days later developed increasing shortness of breath cough and congestion and was brought here to the emergency room yesterday for the same. Initial Chest -ray revealed a patchy right perihilar infiltrate and cardiomegaly. Repeat chest x-ray performed today showed cardiomegaly with prominence of the pulmonary arteries suggesting some pulmonary artery hypertension. Cannot exclude bilateral effusions. White blood cell count 13.1, hemoglobin 11.2, platelet count 304. Sodium 144, potassium 3.5, BUN 39, creatinine 0.8. Magnesium 1.4, alk phos 132, AST 45, ALT 47. Initial troponin 0.067. BNP level 13,600. Influenza A and B are negative. Patient was initiated on IV antibiotics for pneumonia, she has also been started on IV Lasix. According to the patient, today she started putting out a significant amount of urine. He is to cough up dark wall sputum. Blood pressure this morning 122/60 with a heart rate in the 60s, 96% on 4 L. 11/12/2018 Patient seen and examined this morning, sitting up in the chair at bedside, sinus also present. Diuresing on Lasix, weight is down 1 kg today. Continues to cough up a significant amount of wall sputum. Continues to have persistent cough. Blood pressure 136/70 with a heart rate in the 70s, 94% on 3 L. White blood cell count 8.5, hemoglobin 11.5, platelet count 287. Sodium 139, potassium 4.4, BUN 45, creatinine 1.0. Objective - Vital Signs Vital signs: Vital Signs Temp 98.2 F 11/12/18 11:32 Pulse 78 11/12/18 12:26 Resp 18 11/12/18 12:00 BP 137/75 11/12/18 11:32 Pulse Ox 94 L 11/12/18 11:32 Intake & Output 11/11/18 11/12/18 11/12/18 18:59 06:59 18:59 Intake Total 480 550 240 Output Total 600 400 Balance -120 550 -160 Weight 95.4 kg Intake: Oral 480 550 240 Output: Urine 600 400 Other: Voiding Method Diaper Diaper Diaper Incontinent Incontinent Incontinent # Voids 1 3 - Exam PHYSICAL EXAMINATION: GENERAL: 78-year-old female in no acute distress at the time of my examination HEENT: Head is atraumatic, normocephalic. Pupils equal, round. Sclera anicteric. Conjunctiva are clear. Mucous membranes of the mouth are moist. Neck is supple. There is elevated jugular venous pressure. No carotid bruit is heard. HEART EXAMINATION: Heart S1, S2 normal. No murmur or gallop heard. CHEST EXAMINATION: Lungs reveal scattered coarse rhonchi and wheezing throughout , diminished air entry to the bases. ABDOMEN: Soft, nontender. Bowel sounds are heard. No organomegaly noted. EXTREMITIES: 2+ peripheral pulses with evidence of peripheral edema and no calf tenderness noted. NEUROLOGIC patient is awake, alert and oriented 3 . . - Labs CBC & Chem 7: 11/12/18 07:01 11/12/18 07:01 Labs: Abnormal Lab Results - Last 24 Hours (Table) 11/11/18 11/11/18 11/11/18 Range/Units 20:14 20:33 23:05 MCHC (31.0-37.0) g/dL Neutrophils # (1.3-7.7) k/uL Lymphocytes # (1.0-4.8) k/uL BUN (7-17) mg/dL Creatinine (0.52-1.04) mg/dL Glucose (74-99) mg/dL POC Glucose (mg/dL) 59 L 67 L (75-99) mg/dL Urine Appearance Cloudy H (Clear) Urine Protein Trace H (Negative) Ur Leukocyte Esterase Moderate H (Negative) Urine Bacteria Occasional H (None) /hpf Hyaline Casts 55 H (0-2) /lpf Urine Mucus Rare H (None) /hpf 11/12/18 11/12/18 11/12/18 Range/Units 05:51 07:01 07:01 MCHC 29.6 L (31.0-37.0) g/dL Neutrophils # 8.0 H (1.3-7.7) k/uL Lymphocytes # 0.3 L (1.0-4.8) k/uL BUN 45 H (7-17) mg/dL Creatinine 1.05 H (0.52-1.04) mg/dL Glucose 163 H (74-99) mg/dL POC Glucose (mg/dL) 178 H (75-99) mg/dL Urine Appearance (Clear) Urine Protein (Negative) Ur Leukocyte Esterase (Negative) Urine Bacteria (None) /hpf Hyaline Casts (0-2) /lpf Urine Mucus (None) /hpf 11/12/18 Range/Units 11:07 MCHC (31.0-37.0) g/dL Neutrophils # (1.3-7.7) k/uL Lymphocytes # (1.0-4.8) k/uL BUN (7-17) mg/dL Creatinine (0.52-1.04) mg/dL Glucose (74-99) mg/dL POC Glucose (mg/dL) 237 H (75-99) mg/dL Urine Appearance (Clear) Urine Protein (Negative) Ur Leukocyte Esterase (Negative) Urine Bacteria (None) /hpf Hyaline Casts (0-2) /lpf Urine Mucus (None) /hpf Microbiology - Last 24 Hours (Table) 11/11/18 23:05 Urine Culture - Preliminary Urine,Ureter 11/10/18 15:00 Blood Culture - Preliminary Blood No Growth after 24 hours Assessment and Plan Plan: Assessment and plan #1 Acute hypoxic respiratory failure secondary to a right perihilar infiltrate suspect aspiration pneumonia. #2 Recent procedure for epistaxis. #3 History of atrial fibrillation, , paroxysmal, currently sinus rhythm. #4 Coronary artery disease. Follows with a cardiology manager out of town #5 Diabetes mellitus. #6 Gastroesophageal reflux disease. #7 Hypertension. #8 Hyperlipidemia. #9 Osteoarthritis. #10 Former smoker. #11 diastolic congestive heart failure acute on chronic. Plan We will continue current dose of IV Lasix, continue to monitor intake and output along with daily weights and daily lytes BUN and creatinine. We will review the patient's echocardiogram with Doppler study. Discontinue oral Cardizem. DNP note has been reviewed, I agree with a documented findings and plan of care. Patient was seen and examined.
--- NOTE | 2018-11-12 15:30 | P.PN ---
Subjective Progress Note Date: 11/12/18 Principal diagnosis: Acute hypoxic respiratory failure, suspect aspiration pneumonia. This is a very pleasant 78-year-old female patient who follows with Dr. Bailey as her primary care physician. She has history of atrial fibrillation, coronary artery disease, diabetes Eric, gastroesophageal reflux disease, hyperlipidemia, hypertension, osteoarthritis, obstructive sleep apnea, chronic obstructive pulmonary disease on oxygen at 3 L at home. Previous smoking history. The patient recently had undergone a procedure for a nosebleed and a few days later developed increasing shortness of breath cough and congestion and was brought here to the emergency room yesterday for the same. As x-ray revealed a patchy right perihilar infiltrate and cardiomegaly. He did have O2 saturation of 81% on room air on presentation. We're consulted for the same. She is seen today on the selective care unit. She is awake and alert sitting up in a chair at the bedside. She is somewhat of a poor historian. She currently denies any worsening shortness of breath. She has a loose nonproductive cough. Taking O2 saturations in the upper 90s on 4 L/m per nasal cannula. She's been afebrile. Hemodynamically stable. Sputum cultures pending. White count 13.1. Hemoglobin 11.2. Creatinine 0.88. Influenza screen negative. Patient was reevaluated today on 11/12/2018, feeling much better, breathing a lot easier. Minimal cough, the cough is productive with yellow phlegm, denies any fever no chills no hemoptysis no chest pain. Denies any wheezing. Patient remains on 4 L nasal cannula, and her O2 saturation is in the 90s. CBC was noted to be normal. Electrolytes are normal BUN is 45 creatinine is 1.05. Objective - Vital Signs Vital signs: Vital Signs Temp 98.2 F 11/12/18 11:32 Pulse 78 11/12/18 12:26 Resp 18 11/12/18 12:00 BP 137/75 11/12/18 11:32 Pulse Ox 94 L 11/12/18 11:32 Intake & Output 11/11/18 11/12/18 11/12/18 18:59 06:59 18:59 Intake Total 480 550 240 Output Total 600 400 Balance -120 550 -160 Weight 95.4 kg Intake: Oral 480 550 240 Output: Urine 600 400 Other: Voiding Method Diaper Diaper Diaper Incontinent Incontinent Incontinent # Voids 1 3 - Exam Physical Exam: Revealed a 78-year-old female in no distress. Head: Atraumatic normocephalic. HEENT:[Neck is supple.] [No neck masses.] [No thyromegaly.] [No JVD.] PERRLA, EOMI, no icterus. Chest: [Crackles and scattered rhonchi bilaterally. No wheezing. No chest wall tenderness. Symmetrical chest expansion. Cardiac Exam: [Normal S1 and S2, no S3 gallop, no murmur.] Abdomen: [Soft, nontender, no megaly, no rebound, no guarding, normal bowel sounds.] Extremities: [No clubbing, no edema, no cyanosis.] Neurological Exam: [No focal neurologic deficit. Psychiatric: Normal mood affect and mental status examination. Skin: No rashes] - Labs CBC & Chem 7: 11/12/18 07:01 11/12/18 07:01 Labs: Abnormal Lab Results - Last 24 Hours (Table) 11/11/18 11/11/18 11/11/18 Range/Units 20:14 20:33 23:05 MCHC (31.0-37.0) g/dL Neutrophils # (1.3-7.7) k/uL Lymphocytes # (1.0-4.8) k/uL BUN (7-17) mg/dL Creatinine (0.52-1.04) mg/dL Glucose (74-99) mg/dL POC Glucose (mg/dL) 59 L 67 L (75-99) mg/dL Urine Appearance Cloudy H (Clear) Urine Protein Trace H (Negative) Ur Leukocyte Esterase Moderate H (Negative) Urine Bacteria Occasional H (None) /hpf Hyaline Casts 55 H (0-2) /lpf Urine Mucus Rare H (None) /hpf 11/12/18 11/12/18 11/12/18 Range/Units 05:51 07:01 07:01 MCHC 29.6 L (31.0-37.0) g/dL Neutrophils # 8.0 H (1.3-7.7) k/uL Lymphocytes # 0.3 L (1.0-4.8) k/uL BUN 45 H (7-17) mg/dL Creatinine 1.05 H (0.52-1.04) mg/dL Glucose 163 H (74-99) mg/dL POC Glucose (mg/dL) 178 H (75-99) mg/dL Urine Appearance (Clear) Urine Protein (Negative) Ur Leukocyte Esterase (Negative) Urine Bacteria (None) /hpf Hyaline Casts (0-2) /lpf Urine Mucus (None) /hpf 11/12/18 Range/Units 11:07 MCHC (31.0-37.0) g/dL Neutrophils # (1.3-7.7) k/uL Lymphocytes # (1.0-4.8) k/uL BUN (7-17) mg/dL Creatinine (0.52-1.04) mg/dL Glucose (74-99) mg/dL POC Glucose (mg/dL) 237 H (75-99) mg/dL Urine Appearance (Clear) Urine Protein (Negative) Ur Leukocyte Esterase (Negative) Urine Bacteria (None) /hpf Hyaline Casts (0-2) /lpf Urine Mucus (None) /hpf Microbiology - Last 24 Hours (Table) 11/10/18 20:32 Gram Stain - Preliminary Sputum Sputum Culture - Preliminary 11/11/18 23:05 Urine Culture - Preliminary Urine,Ureter 11/10/18 15:00 Blood Culture - Preliminary Blood No Growth after 24 hours Assessment and Plan Assessment: #1 Acute hypoxic respiratory failure secondary to a right perihilar infiltrate suspect aspiration pneumonia. #2 Recent procedure for epistaxis. #3 History of atrial fibrillation, currently sinus rhythm. #4 Coronary artery disease. #5 Diabetes mellitus. #6 Gastroesophageal reflux disease. #7 Hypertension. #8 Hyperlipidemia. #9 Osteoarthritis. #10 Former smoker. #11 Anxiety/depression. Recommendation: Continue antibiotics, continue bronchodilators, continue oxygen , titrate FiO2 to keep saturation above 90%. Cut down on diuretics since the patient is showing prerenal picture, follow-up chest x-ray in a.m. We'll continue to follow. Time with Patient: Less than 30
[2018-11-12 16:30] LABS: Glucose,Whole Blood 228 mg/dL (75-99)
[2018-11-12] MEDS: SODIUM CHLORIDE 0.9% 1,000 ML IV SCH (16:53)
--- NOTE | 2018-11-12 16:57 | ECHOF ---
Referral Reason:chf MEASUREMENTS -------- HEIGHT: 162.6 cm WEIGHT: 95.7 kg BP: 122/69 RVIDd: 3.7 cm (< 3.3) IVSd: 1.7 cm (0.6 - 1.1) LVIDd: 4.7 cm (3.9 - 5.3) LVPWd: 1.7 cm (0.6 - 1.1) IVSs: 1.8 cm LVIDs: 3.7 cm LVPWs: 1.7 cm LA Diam: 5.1 cm (2.7 - 3.8) LAESV Index (A-L): 32.94 ml/m Ao Diam: 3.1 cm (2.0 - 3.7) AV Cusp: 2.0 cm (1.5 - 2.6) MV EXCURSION: 12.169 mm (> 18.000) MV EF SLOPE: 35 mm/s (70 - 150) EPSS: 1.5 cm MV E Daniel: 1.65 m/s MV DecT: 247 ms MV A Daniel: 1.13 m/s MV E/A Ratio: 1.46 AV maxP.12 mmHg AV meanP.21 mmHg RAP: 15.00 mmHg RVSP: 83.81 mmHg FINDINGS -------- Sinus rhythm with extra systolic beats. This was a technically adequate study. The left ventricular size is normal. There is severe concentric left ventricular hypertrophy. Ove rall left ventricular systolic function is low-normal with, an EF between 50 - 55 %. The right ventricle is mildly enlarged. LA is midly dilated 29-33ml/m2. The right atrium is normal in size. There is moderate aortic valve sclerosis. There is mild aortic stenosis present. Peak/mean gradie nt across the Aortic Valve is 39.12mmHg / 14.21mmHg. The mitral valve leaflets are mildly thickened. Mild mitral annular calcification present. Modera [id number] mitral regurgitation is present. The peak and mean MV gradients are 15.06mmHg 5.42mmH g as measured by doppler. Moderate mitral stenosis.posterior leaflet motion is restricted. Severe tricuspid regurgitation present. There is severe pulmonary hypertension. The right ventric ular systolic pressure, as measured by Doppler, is 83.81mmHg. Trace/mild (physiologic) pulmonic regurgitation. The aortic root size is normal. The inferior vena cava is dilated with no significant inspiratory collapse which is consistent estima william right atrial pressure of >15 mmHg. There is no pericardial effusion. CONCLUSIONS -------- 1. Sinus rhythm with extra systolic beats. 2. This was a technically adequate study. 3. The left ventricular size is normal. 4. There is severe concentric left ventricular hypertrophy. 5. Overall left ventricular systolic function is low-normal with, an EF between 50 - 55 %. 6. The right ventricle is mildly enlarged. 7. LA is midly dilated 29-33ml/m2. 8. The right atrium is normal in size. 9. There is moderate aortic valve sclerosis. 10. There is mild aortic stenosis present. 11. Peak/mean gradient across the Aortic Valve is 39.12mmHg / 14.21mmHg. 12. The mitral valve leaflets are mildly thickened. 13. Mild mitral annular calcification present. 14. [id number] mitral regurgitation is present. 15. The peak and mean MV gradients are 15.06mmHg 5.42mmHg as measured by doppler. 16. Moderate mitral stenosis. 17. Severe tricuspid regurgitation present. 18. There is severe pulmonary hypertension. 19. The right ventricular systolic pressure, as measured by Doppler, is 83.81mmHg. 20. Trace/mild (physiologic) pulmonic regurgitation. 21. The aortic root size is normal. 22. The inferior vena cava is dilated with no significant inspiratory collapse which is consistent es timated right atrial pressure of >15 mmHg. 23. There is no pericardial effusion. NUCLEAR LICENSING ENGINEER: Elsa Knox RDCS
[2018-11-12] MEDS: MELATONIN 3 MG TABLET PO SCH (20:34)
[2018-11-12 20:53] LABS: Glucose,Whole Blood 201 mg/dL (75-99)
[2018-11-12] MEDS: MENTHOL (NICE) LOZENGE MUCOUS MEM PRN (22:45)
[2018-11-13] MEDS: methylPREDNISolone SOD SUCCI 40 MG/ML 1 ML VIAL IV SCH ×4 (00:02→23:49)
[2018-11-13] MEDS: IPRATROPIUM-ALBUTEROL 3 ML NEB INHALATION SCH ×7 (00:05→23:59)
[2018-11-13] MEDS: MENTHOL (NICE) LOZENGE MUCOUS MEM PRN (02:05)
[2018-11-13 05:53] LABS: Glucose,Whole Blood 164 mg/dL (75-99)
[2018-11-13] MEDS: INSULIN ASPART 100 UNIT/ML 1 ML 10 ML VIAL SQ SCH ×4 (06:14→22:29)
[2018-11-13] MEDS: PANTOPRAZOLE 40 MG TABLET PO SCH (06:14)
--- NOTE | 2018-11-13 06:23 | PN ---
PROGRESS NOTE DATE OF SERVICE: 11/12/2018 This 78-year-old woman who was admitted with COPD acute exacerbation as well as possibly aspiration pneumonia is being closely monitored at this time. The patient had CHF also. The patient on antibiotics. Multiple consultants are following the patient closely. A 2D echo with Doppler showed an ejection fraction 50% to 55% and moderate to severe mitral regurgitation also. No chest pain or palpitations. No fever. PHYSICAL EXAMINATION: On exam, alert and oriented x3. Pulse is 71, blood pressure 136/66, respirations 18, temperature 98 degrees, pulse ox 96% on 2 L. HEENT: Conjunctivae normal. NECK: No jugular venous distention. CARDIOVASCULAR: S1, S2 muffled. Ejection systolic murmur. RESPIRATORY: Breath sounds diminished at the bases. A few scattered rhonchi. ABDOMEN: Soft, nontender. NERVOUS SYSTEM: No focal deficits. LABS: CBC within normal limits. Creatinine is 1.05. Glucose noted. ASSESSMENT: 1. Chronic obstructive pulmonary disease acute exacerbation with acute bilateral pneumonia possibly gram-negative, possibly aspiration. 2. Congestive heart failure acute exacerbation acute on chronic diastolic dysfunction, ejection fraction 50% to 60% on recent 2D echo. 3. Moderate mitral regurgitation with mild aortic stenosis. 4. Increased bilirubin. 5. Increased AST. 6. Troponin 0.06 indeterminate. 7. History of atrial fibrillation. 8. History of coronary artery disease. 9. Diabetes mellitus type 2. 10.Gastroesophageal reflux disease. 11.Hypertension. 12.Hyperlipidemia. 13.History of degenerative joint disease. 14.History of pneumonia. 15.History of recent epistaxis. 16.Anxiety, depression. RECOMMENDATIONS AND DISCUSSION: Recommend to continue current medications, continue with symptomatic treatment. Continue to follow closely with Cardiology, bronchodilators, diuretics. Prognosis guarded because of multiple complex medical issues. Further recommendation to follow. MMODL / IJN: [id number] /
[2018-11-13 06:40] LABS: Basophils % (A) 0 %; Eosinophils % (A) 0 %; HCT 36.3 % (34.0-46.0); Hypochromasia Slight; Lymphocytes # (A) 0.4 k/uL (1.0-4.8); Lymphocytes % (A) 5 %; MCH 28.3 pg (25.0-35.0); MCHC 30.4 g/dL (31.0-37.0); MCV 92.9 fL (80.0-100.0); Mean Platelet Volume 6.9; Monocytes # (A) 0.1 k/uL (0-1.0); Monocytes % (A) 1 %; Neutrophils # (A) 7.1 k/uL (1.3-7.7); Neutrophils % (A) 93 %; Platelet Count 280 k/uL (150-450); RBC 3.91 m/uL (3.80-5.40); RDW 14.8 % (11.5-15.5); WBC 7.7 k/uL (3.8-10.6)
[2018-11-13 06:55] LABS: Calcium 9.5 mg/dL (8.4-10.2); Potassium 4.6 mmol/L (3.5-5.1)
[2018-11-13] MEDS: ALPRAZolam 0.25 MG TAB PO PRN ×2 (06:59→20:54)
[2018-11-13] MEDS: CHOLECALCIFEROL 1,000 UNIT TAB PO SCH (08:26)
[2018-11-13] MEDS: ASCORBIC ACID 500 MG TAB PO SCH (08:26)
[2018-11-13] MEDS: FUROSEMIDE 10 MG/ML 4 ML VIAL IV SCH (08:26)
[2018-11-13] MEDS: ATORVASTATIN 10 MG TAB PO SCH (08:26)
[2018-11-13] MEDS: AZITHROMYCIN 500 MG TAB PO SCH (08:26)
[2018-11-13] MEDS: ASPIRIN 81 MG PO SCH (08:26)
[2018-11-13] MEDS: ALLOPURINOL 300 MG TAB PO SCH (08:26)
[2018-11-13] MEDS: HEPARIN SODIUM,PORCINE 5,000 UNIT/ML 1 ML VIAL SQ SCH ×2 (08:27→20:49)
[2018-11-13] MEDS: MAGNESIUM OXIDE 400 MG TAB PO SCH (08:27)
[2018-11-13] MEDS: SERTRALINE 100 MG TAB PO SCH (08:27)
[2018-11-13] MEDS: INSULIN DETEMIR 100 UNIT/ML 10 ML VIAL SQ SCH (08:27)
[2018-11-13] MEDS: METOPROLOL SUCCINATE (ER) 25 MG TAB.ER.24H PO SCH (08:27)
[2018-11-13] MEDS: HYDROXYCHLOROQUINE SULFATE 200 MG TAB PO SCH ×2 (08:27→20:51)
--- NOTE | 2018-11-13 10:49 | P.PN ---
Subjective Progress Note Date: 11/13/18 This is a very pleasant 78-year-old female patient she is a fairly poor historian, who has history of atrial fibrillation, coronary artery disease, diabetes , gastroesophageal reflux disease, hyperlipidemia, hypertension, osteoarthritis, obstructive sleep apnea, chronic obstructive pulmonary disease on oxygen at 3 L at home. Previous smoking history. The patient recently had undergone a procedure for a nosebleed and a few days later developed increasing shortness of breath cough and congestion and was brought here to the emergency room yesterday for the same. Initial Chest -ray revealed a patchy right perihilar infiltrate and cardiomegaly. Repeat chest x-ray performed today showed cardiomegaly with prominence of the pulmonary arteries suggesting some pulmonary artery hypertension. Cannot exclude bilateral effusions. White blood cell count 13.1, hemoglobin 11.2, platelet count 304. Sodium 144, potassium 3.5, BUN 39, creatinine 0.8. Magnesium 1.4, alk phos 132, AST 45, ALT 47. Initial troponin 0.067. BNP level 13,600. Influenza A and B are negative. Patient was initiated on IV antibiotics for pneumonia, she has also been started on IV Lasix. According to the patient, today she started putting out a significant amount of urine. He is to cough up dark wall sputum. Blood pressure this morning 122/60 with a heart rate in the 60s, 96% on 4 L. 11/12/2018 Patient seen and examined this morning, sitting up in the chair at bedside, sinus also present. Diuresing on Lasix, weight is down 1 kg today. Continues to cough up a significant amount of wall sputum. Continues to have persistent cough. Blood pressure 136/70 with a heart rate in the 70s, 94% on 3 L. White blood cell count 8.5, hemoglobin 11.5, platelet count 287. Sodium 139, potassium 4.4, BUN 45, creatinine 1.0. 11/13/2018 Patient was seen and examined this morning, sitting up in her bed. She does state that overall her breathing is improving. She continues to have a cough however today it appears to be much less productive. She does feel as though she's putting out a lot of urine however her weight is not in indicating a downward trend. White blood cell count is normal, hemoglobin 11, platelet count 280. Sodium 138, potassium 4.6, BUN 55 and creatinine 0.9. Objective - Vital Signs Vital signs: Vital Signs Temp 98.0 F 11/13/18 08:00 Pulse 88 11/13/18 08:00 Resp 18 11/13/18 08:00 BP 120/70 11/13/18 08:00 Pulse Ox 92 L 11/13/18 08:00 Intake & Output 11/12/18 11/13/18 11/13/18 18:59 06:59 18:59 Intake Total 240 360 Output Total 400 200 Balance -160 -200 360 Weight 96 kg Intake: Oral 240 360 Output: Urine 400 200 Other: Voiding Method Diaper Diaper Diaper Incontinent Incontinent Incontinent # Voids 3 1 2 - Exam PHYSICAL EXAMINATION: GENERAL: 78-year-old female in no acute distress at the time of my examination HEENT: Head is atraumatic, normocephalic. Pupils equal, round. Sclera anicteric. Conjunctiva are clear. Mucous membranes of the mouth are moist. Neck is supple. There is no elevated jugular venous pressure. No carotid bruit is heard. HEART EXAMINATION: Heart S1, S2 normal. No murmur or gallop heard. CHEST EXAMINATION: Lungs reveal decreased air exchange, much less wheezing today. ABDOMEN: Soft, nontender. Bowel sounds are heard. No organomegaly noted. EXTREMITIES: 2+ peripheral pulses with no evidence of peripheral edema and no calf tenderness noted. NEUROLOGIC patient is awake, alert and oriented 3 . . - Labs CBC & Chem 7: 11/13/18 06:04 11/13/18 06:04 Labs: Abnormal Lab Results - Last 24 Hours (Table) 11/12/18 11/12/18 11/12/18 Range/Units 11:07 16:21 20:52 Hgb (11.4-16.0) gm/dL MCHC (31.0-37.0) g/dL Lymphocytes # (1.0-4.8) k/uL BUN (7-17) mg/dL Glucose (74-99) mg/dL POC Glucose (mg/dL) 237 H 228 H 201 H (75-99) mg/dL 11/13/18 11/13/18 11/13/18 Range/Units 05:50 06:04 06:04 Hgb 11.0 L (11.4-16.0) gm/dL MCHC 30.4 L (31.0-37.0) g/dL Lymphocytes # 0.4 L (1.0-4.8) k/uL BUN 55 H (7-17) mg/dL Glucose 156 H (74-99) mg/dL POC Glucose (mg/dL) 164 H (75-99) mg/dL Microbiology - Last 24 Hours (Table) 11/10/18 20:32 Gram Stain - Final Sputum Sputum Culture - Final 11/10/18 15:00 Blood Culture - Preliminary Blood No Growth after 48 hours 11/11/18 23:05 Urine Culture - Preliminary Urine,Ureter Assessment and Plan Plan: Assessment and plan #1 Acute hypoxic respiratory failure secondary to a right perihilar infiltrate suspect aspiration pneumonia. #2 Recent procedure for epistaxis. #3 History of atrial fibrillation, , paroxysmal, currently sinus rhythm. #4 Coronary artery disease. 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 #6 Gastroesophageal reflux disease. #7 Hypertension. #8 Hyperlipidemia. #9 Osteoarthritis. #10 Former smoker. #11 diastolic congestive heart failure acute on chronic. Plan We will continue current dose of IV Lasix, continue to monitor intake and output along with daily weights and daily lytes BUN and creatinine. Echocardiogram with Doppler study was reviewed which revealed a normal left ventricular systolic function. Moderate to severe mitral regurgitation with moderate mitral stenosis and severe tricuspid regurg. Repeat chest x-ray. DNP note has been reviewed, I agree with a documented findings and plan of care. Patient was seen and examined.
[2018-11-13 11:20] LABS: Glucose,Whole Blood 199 mg/dL (75-99)
--- NOTE | 2018-11-13 15:02 | P.PN ---
Subjective Progress Note Date: 11/13/18 Principal diagnosis: Acute hypoxic respiratory failure, suspect aspiration pneumonia This is a very pleasant 78-year-old female patient who follows with Dr. Bailey as her primary care physician. She has history of atrial fibrillation, coronary artery disease, diabetes Eric, gastroesophageal reflux disease, hyperlipidemia, hypertension, osteoarthritis, obstructive sleep apnea, chronic obstructive pulmonary disease on oxygen at 3 L at home. Previous smoking history. The patient recently had undergone a procedure for a nosebleed and a few days later developed increasing shortness of breath cough and congestion and was brought here to the emergency room yesterday for the same. As x-ray revealed a patchy right perihilar infiltrate and cardiomegaly. He did have O2 saturation of 81% on room air on presentation. We're consulted for the same. She is seen today on the selective care unit. She is awake and alert sitting up in a chair at the bedside. She is somewhat of a poor historian. She currently denies any worsening shortness of breath. She has a loose nonproductive cough. Taking O2 saturations in the upper 90s on 4 L/m per nasal cannula. She's been afebrile. Hemodynamically stable. Sputum cultures pending. White count 13.1. Hemoglobin 11.2. Creatinine 0.88. Influenza screen negative. Patient was reevaluated today on 11/12/2018, feeling much better, breathing a lot easier. Minimal cough, the cough is productive with yellow phlegm, denies any fever no chills no hemoptysis no chest pain. Denies any wheezing. Patient remains on 4 L nasal cannula, and her O2 saturation is in the 90s. CBC was noted to be normal. Electrolytes are normal BUN is 45 creatinine is 1.05. On 11/13/2018 patient seen in follow-up on selective care unit. She is on 2 L per nasal cannula her pulse ox is 100%, patient is afebrile. Lung sounds are diminished, no wheezes, no rhonchi. Urine culture was positive for group D enterococcus, sputum culture and blood culture showed no growth. Current antibiotics include Zithromax, and Rocephin, patient is on IV Lasix at 40 mg daily, repeat chest x-ray is pending. Patient is on IV steroids, belies bronchodilators, she states she is breathing easier. Today's labs have been reviewed, WBC is 7.7, hemoglobin is 11.0, elective was were within normal limits , BUN is 55 and creatinine 0.94. Objective - Vital Signs Vital signs: Vital Signs Temp 98.0 F 11/13/18 08:00 Pulse 82 11/13/18 12:00 Resp 18 11/13/18 12:00 BP 121/76 11/13/18 11:41 Pulse Ox 100 11/13/18 11:41 Intake & Output 11/12/18 11/13/18 11/13/18 18:59 06:59 18:59 Intake Total 240 600 Output Total 400 200 Balance -160 -200 600 Weight 96 kg Intake: Oral 240 600 Output: Urine 400 200 Other: Voiding Method Diaper Diaper Diaper Incontinent Incontinent Incontinent # Voids 3 1 2 - Exam Physical Exam: Revealed a 78-year-old female in no distress. Head: Atraumatic normocephalic. HEENT:[Neck is supple.] [No neck masses.] [No thyromegaly.] [No JVD.] PERRLA, EOMI, no icterus. Chest: [Breath sounds bilaterally are diminished. No wheezing. No chest wall tenderness. Symmetrical chest expansion. Cardiac Exam: [Normal S1 and S2, no S3 gallop, no murmur.] Abdomen: [Soft, nontender, no megaly, no rebound, no guarding, normal bowel sounds.] Extremities: [No clubbing, no edema, no cyanosis.] Neurological Exam: [No focal neurologic deficit. Psychiatric: Normal mood affect and mental status examination. - Labs CBC & Chem 7: 11/13/18 06:04 11/13/18 06:04 Labs: Abnormal Lab Results - Last 24 Hours (Table) 11/12/18 11/12/18 11/13/18 Range/Units 16:21 20:52 05:50 Hgb (11.4-16.0) gm/dL MCHC (31.0-37.0) g/dL Lymphocytes # (1.0-4.8) k/uL BUN (7-17) mg/dL Glucose (74-99) mg/dL POC Glucose (mg/dL) 228 H 201 H 164 H (75-99) mg/dL 11/13/18 11/13/18 11/13/18 Range/Units 06:04 06:04 11:13 Hgb 11.0 L (11.4-16.0) gm/dL MCHC 30.4 L (31.0-37.0) g/dL Lymphocytes # 0.4 L (1.0-4.8) k/uL BUN 55 H (7-17) mg/dL Glucose 156 H (74-99) mg/dL POC Glucose (mg/dL) 199 H (75-99) mg/dL Microbiology - Last 24 Hours (Table) 11/11/18 23:05 Urine Culture - Preliminary Urine,Ureter Group D Enterococcus 11/10/18 20:32 Gram Stain - Final Sputum Sputum Culture - Final 11/10/18 15:00 Blood Culture - Preliminary Blood No Growth after 48 hours Assessment and Plan Plan: Assessment: #1 Acute hypoxic respiratory failure secondary to a right perihilar infiltrate suspect aspiration pneumonia. #2 Recent procedure for epistaxis. #3 History of atrial fibrillation, currently sinus rhythm. #4 Coronary artery disease. #5 Diabetes mellitus. #6 Gastroesophageal reflux disease. #7 Hypertension. #8 Hyperlipidemia. #9 Osteoarthritis. #10 Former smoker. #11 Anxiety/depression. Plan: Today's chest x-ray is pending, continue the IV steroids, nebulized bronchodilators, antibiotics. Patient is breathing easier, feeling better, less congested. No worsening dyspnea, no chest pain. Still coughing up some colored phlegm. Echocardiogram results have been noted. Weaning the results of repeat chest x-ray today I performed a history & physical examination of the patient and discussed their management with my nurse practitioner, Sudha Perdomo. I reviewed the nurse practitioner's note and agree with the documented findings and plan of care. Lung sounds are positive for diminished breath sounds. The findings and the impression was discussed with the patient. I attest to the documentation by the nurse practitioner. Time with Patient: Less than 30
--- NOTE | 2018-11-13 15:03 | XR ---
EXAMINATION TYPE: XR chest 2V DATE OF EXAM: 11/13/2018 COMPARISON: Chest x-ray from 2 and 3 days ago. HISTORY: CHF progress study. TECHNIQUE: Frontal and lateral views of the chest are obtained. FINDINGS: There is persisting cardiomegaly with bilateral hilar prominence. Reticular interstitial c hanges bilaterally are redemonstrated. No large pleural effusion or pneumothorax is seen. The osseou s structures remain demineralized. IMPRESSION: Cardiomegaly with suspected chronic parenchymal changes. No suspicious new focal infiltr ate. Underlying pulmonary artery hypertension suspected.
[2018-11-13 16:37] LABS: Glucose,Whole Blood 247 mg/dL (75-99)
[2018-11-13] MEDS: SODIUM CHLORIDE 0.9% 1,000 ML IV SCH (18:13)
--- NOTE | 2018-11-13 20:19 | PN ---
PROGRESS NOTE DATE OF SERVICE: 11/13/2018 This 78-year-old woman who was admitted with COPD exacerbation with bilateral pneumonia with possibly gram-negative is being closely monitored. No chest pain. No palpitations. No fever. EXAM: Alert and oriented times three. Pulse 72, blood pressure 101/52, respirations 16, temperature 98.1, pulse ox 92% on 2 L. HEENT: Conjunctivae normal. NECK: No jugular venous distention. CARDIOVASCULAR: S1, S2 muffled. RESPIRATION: Breath sounds diminished in the bases. Bilateral scattered rhonchi and crackles. ABDOMEN is soft, nontender. LEGS are no edema. No swelling. CENTRAL NERVOUS SYSTEM: No focal deficits. LABS: WBC 7.2, hemoglobin is 11. ASSESSMENT: 1. Chronic obstructive pulmonary disease exacerbation with acute bilateral pneumonia possibly gram-negative with possibly aspiration. 2. Congestive heart failure acute exacerbation with acute on chronic diastolic dysfunction ejection fraction 55-60 percent on recent 2D echo. 3. Moderate mitral regurgitation with mild aortic stenosis. 4. Increased bilirubin. 5. Increased AST. 6. Troponin 0.06 indeterminate. 7. History of atrial fibrillation. 8. History of coronary artery disease. 9. Diabetes mellitus type 2. 10.Gastroesophageal reflux disease. 11.Hypertension. 12.Hyperlipidemia. 13.History of degenerative joint disease. 14.History of pneumonia. 15.History of recent epistaxis. 16.Anxiety/depression. RECOMMENDATIONS AND DISCUSSION: Recommend to continue current medications, continue with monitoring, management and symptomatic treatment. Otherwise, at this time, I recommend to monitor the patient closely. Continue with current medications. Continue with antibiotics. Monitor fluid and electrolytes balance closely. Closely follow with multiple consultants. Further recommendations to follow. Possible discharge soon once the patient is stabilized. MMODL / IJN: [id number] /
[2018-11-13] MEDS: MELATONIN 3 MG TABLET PO SCH (20:51)
[2018-11-13 21:29] LABS: Glucose,Whole Blood 207 mg/dL (75-99)
[2018-11-14] MEDS: IPRATROPIUM-ALBUTEROL 3 ML NEB INHALATION SCH ×5 (03:50→20:22)
[2018-11-14 06:23] LABS: Glucose,Whole Blood 223 mg/dL (75-99)
[2018-11-14] MEDS: PANTOPRAZOLE 40 MG TABLET PO SCH (06:31)
[2018-11-14] MEDS: INSULIN ASPART 100 UNIT/ML 1 ML 10 ML VIAL SQ SCH ×4 (06:31→21:10)
[2018-11-14 07:00] LABS: Basophils % (A) 0 %; Eosinophils % (A) 0 %; HCT 34.7 % (34.0-46.0); HGB 11.2 gm/dL (11.4-16.0); Hypochromasia Slight; Lymphocytes # (A) 0.3 k/uL (1.0-4.8); Lymphocytes % (A) 4 %; MCHC 32.2 g/dL (31.0-37.0); MCV 93.1 fL (80.0-100.0); Mean Platelet Volume 7.4; Monocytes # (A) 0.1 k/uL (0-1.0); Monocytes % (A) 1 %; Neutrophils % (A) 94 %; Platelet Count 237 k/uL (150-450); RBC 3.73 m/uL (3.80-5.40); RDW 14.8 % (11.5-15.5); WBC 7.4 k/uL (3.8-10.6)
[2018-11-14 07:14] LABS: Calcium 9.8 mg/dL (8.4-10.2); Potassium 4.4 mmol/L (3.5-5.1)
[2018-11-14] MEDS: ALLOPURINOL 300 MG TAB PO SCH (08:06)
[2018-11-14] MEDS: methylPREDNISolone SOD SUCCI 40 MG/ML 1 ML VIAL IV SCH (08:06)
[2018-11-14] MEDS: AZITHROMYCIN 500 MG TAB PO SCH (08:07)
[2018-11-14] MEDS: ASPIRIN 81 MG PO SCH (08:07)
[2018-11-14] MEDS: CHOLECALCIFEROL 1,000 UNIT TAB PO SCH (08:07)
[2018-11-14] MEDS: ASCORBIC ACID 500 MG TAB PO SCH (08:07)
[2018-11-14] MEDS: HEPARIN SODIUM,PORCINE 5,000 UNIT/ML 1 ML VIAL SQ SCH ×2 (08:07→20:21)
[2018-11-14] MEDS: FUROSEMIDE 10 MG/ML 4 ML VIAL IV SCH (08:07)
[2018-11-14] MEDS: HYDROXYCHLOROQUINE SULFATE 200 MG TAB PO SCH ×2 (08:07→20:21)
[2018-11-14] MEDS: ATORVASTATIN 10 MG TAB PO SCH (08:07)
[2018-11-14] MEDS: INSULIN DETEMIR 100 UNIT/ML 10 ML VIAL SQ SCH (08:07)
[2018-11-14] MEDS: SERTRALINE 100 MG TAB PO SCH (08:08)
[2018-11-14] MEDS: METOPROLOL SUCCINATE (ER) 25 MG TAB.ER.24H PO SCH (08:08)
[2018-11-14] MEDS: MAGNESIUM OXIDE 400 MG TAB PO SCH (08:08)
[2018-11-14 11:34] VITALS: BMI 36.4
[2018-11-14 11:37] LABS: Glucose,Whole Blood 203 mg/dL (75-99)
--- NOTE | 2018-11-14 11:53 | P.PN ---
Subjective Progress Note Date: 11/14/18 This is a very pleasant 78-year-old female patient she is a fairly poor historian, who has history of atrial fibrillation, coronary artery disease, diabetes , gastroesophageal reflux disease, hyperlipidemia, hypertension, osteoarthritis, obstructive sleep apnea, chronic obstructive pulmonary disease on oxygen at 3 L at home. Previous smoking history. The patient recently had undergone a procedure for a nosebleed and a few days later developed increasing shortness of breath cough and congestion and was brought here to the emergency room yesterday for the same. Initial Chest -ray revealed a patchy right perihilar infiltrate and cardiomegaly. Repeat chest x-ray performed today showed cardiomegaly with prominence of the pulmonary arteries suggesting some pulmonary artery hypertension. Cannot exclude bilateral effusions. White blood cell count 13.1, hemoglobin 11.2, platelet count 304. Sodium 144, potassium 3.5, BUN 39, creatinine 0.8. Magnesium 1.4, alk phos 132, AST 45, ALT 47. Initial troponin 0.067. BNP level 13,600. Influenza A and B are negative. Patient was initiated on IV antibiotics for pneumonia, she has also been started on IV Lasix. According to the patient, today she started putting out a significant amount of urine. He is to cough up dark wall sputum. Blood pressure this morning 122/60 with a heart rate in the 60s, 96% on 4 L. 11/12/2018 Patient seen and examined this morning, sitting up in the chair at bedside, sinus also present. Diuresing on Lasix, weight is down 1 kg today. Continues to cough up a significant amount of wlal sputum. Continues to have persistent cough. Blood pressure 136/70 with a heart rate in the 70s, 94% on 3 L. White blood cell count 8.5, hemoglobin 11.5, platelet count 287. Sodium 139, potassium 4.4, BUN 45, creatinine 1.0. 11/13/2018 Patient was seen and examined this morning, sitting up in her bed. She does state that overall her breathing is improving. She continues to have a cough however today it appears to be much less productive. She does feel as though she's putting out a lot of urine however her weight is not in indicating a downward trend. White blood cell count is normal, hemoglobin 11, platelet count 280. Sodium 138, potassium 4.6, BUN 55 and creatinine 0.9. 11/14/2018 Patient was seen and examined this morning, states that her breathing is significantly improved, continues to have cough, not much sputum production today. Continues to be on IV Lasix. White blood cell count 7.4, hemoglobin 11.2, platelet count 237. Sodium 138, potassium 4.4, BUN 58, creatinine 0.9. Objective - Vital Signs Vital signs: Vital Signs Temp 97.5 F L 11/14/18 07:53 Pulse 77 11/14/18 11:47 Resp 18 11/14/18 11:47 BP 134/69 11/14/18 11:47 Pulse Ox 93 L 11/14/18 11:47 Intake & Output 11/13/18 11/14/18 11/14/18 18:59 06:59 18:59 Intake Total 840 20 Balance 840 20 Weight 96.4 kg 96.4 kg Intake: Intake, IV Titration 20 Amount Sodium Chloride 0.9% 1, 20 000 ml @ 20 mls/hr IV . Q24H [facility] Rx#:[id number] Oral 840 Other: Voiding Method Diaper Diaper Diaper Incontinent Incontinent Incontinent # Voids 2 1 1 - Exam PHYSICAL EXAMINATION: GENERAL: 78-year-old female in no acute distress at the time of my examination HEENT: Head is atraumatic, normocephalic. Pupils equal, round. Sclera anicteric. Conjunctiva are clear. Mucous membranes of the mouth are moist. Neck is supple. There is no elevated jugular venous pressure. No carotid bruit is heard. HEART EXAMINATION: Heart S1, S2 normal. No murmur or gallop heard. CHEST EXAMINATION: Lungs reveal decreased air exchange, much less wheezing today. ABDOMEN: Soft, nontender. Bowel sounds are heard. No organomegaly noted. EXTREMITIES: 2+ peripheral pulses with no evidence of peripheral edema and no calf tenderness noted. NEUROLOGIC patient is awake, alert and oriented 3 . . - Labs CBC & Chem 7: 11/14/18 06:10 11/14/18 06:10 Labs: Abnormal Lab Results - Last 24 Hours (Table) 11/13/18 11/13/18 11/14/18 Range/Units 16:30 21:26 06:10 RBC 3.73 L (3.80-5.40) m/uL Hgb 11.2 L (11.4-16.0) gm/dL Lymphocytes # 0.3 L (1.0-4.8) k/uL Carbon Dioxide (22-30) mmol/L BUN (7-17) mg/dL Glucose (74-99) mg/dL POC Glucose (mg/dL) 247 H 207 H (75-99) mg/dL 11/14/18 11/14/18 11/14/18 Range/Units 06:10 06:21 11:34 RBC (3.80-5.40) m/uL Hgb (11.4-16.0) gm/dL Lymphocytes # (1.0-4.8) k/uL Carbon Dioxide 32 H (22-30) mmol/L BUN 58 H (7-17) mg/dL Glucose 200 H (74-99) mg/dL POC Glucose (mg/dL) 223 H 203 H (75-99) mg/dL Microbiology - Last 24 Hours (Table) 11/10/18 15:00 Blood Culture - Preliminary Blood No Growth after 72 hours 11/11/18 23:05 Urine Culture - Preliminary Urine,Ureter Group D Enterococcus 11/10/18 20:32 Gram Stain - Final Sputum Sputum Culture - Final Assessment and Plan Plan: Assessment and plan #1 Acute hypoxic respiratory failure secondary to a right perihilar infiltrate suspect aspiration pneumonia. #2 Recent procedure for epistaxis. #3 History of atrial fibrillation, , paroxysmal, currently sinus rhythm. #4 Coronary artery disease. Follows with a mooner out of town #5 Diabetes mellitus. #6 Gastroesophageal reflux disease. #7 Hypertension. #8 Hyperlipidemia. #9 Osteoarthritis. #10 Former smoker. #11 diastolic congestive heart failure acute on chronic. Plan We will continue current dose of IV Lasix, continue to monitor intake and output along with daily weights and daily lytes BUN and creatinine. Echocardiogram with Doppler study was reviewed which revealed a normal left ventricular systolic function. Moderate to severe mitral regurgitation with moderate mitral stenosis and severe tricuspid regurg. Repeat chest x-ray showed cardiomegaly with suspected chronic parenchymal changes. No suspicious infiltrate. DNP note has been reviewed, I agree with a documented findings and plan of care. Patient was seen and examined.
--- NOTE | 2018-11-14 16:15 | P.PN ---
Subjective Patient the appears to have come in with the symptoms of sepsis with mild low- grade fever and leukocytosis appears to have perihilar pneumonia and patient is being treated her with ceftriaxone is from azithromycin. Patient does not appear to have any UTI-like symptoms but urine analysis and urine culture was often urine culture is positive for Enterococcus faecalis but patient has ALLERGY to penicillins and vancomycin. I'm unsure whether patient actually has a UTI are this is asymptomatic bacteriuria because of that reason I'll consult infectious disease. Patient is also being treated for COPD with systemic steroids which will be switched to oral and patient is also being treated for chronic diastolic dysfunction with acute examination patient is presently on IV Lasix. Patient is bit tired beyond which patient is otherwise clinically doing well is being evaluated for subacute rehabilitation placement Constitutional: denied any fever. Cardio vascular: denied any chest pain, palpitations Gastrointestinal denied any nausea vomiting Pulmonary: Denied any shortness of breath cough Neurologic denied any new focal deficits All inpatient medications were reviewed and appropriate changes in these medications as dictated in the interval history and assessment and plan. Objective - Vital Signs Vital signs: Vital Signs Temp 97.3 F L 11/14/18 15:49 Pulse 82 11/14/18 15:50 Resp 18 11/14/18 15:49 BP 135/69 11/14/18 15:49 Pulse Ox 99 11/14/18 15:49 Intake & Output 11/13/18 11/14/18 11/14/18 18:59 06:59 18:59 Intake Total 840 100 Balance 840 100 Weight 96.4 kg 96.4 kg Intake: Intake, IV Titration 100 Amount Sodium Chloride 0.9% 1, 100 000 ml @ 20 mls/hr IV . Q[facility]H [facility] Rx#:[id number] Oral 840 Other: Voiding Method Diaper Diaper Diaper Incontinent Incontinent Incontinent # Voids 2 1 1 # Bowel Movements 1 - Exam PHYSICAL EXAMINATION: GENERAL: The patient is alert and oriented x3, not in any acute distress. Well developed, well nourished. HEENT: Pupils are round and equally reacting to light. EOMI. No scleral icterus. No conjunctival pallor. Normocephalic, atraumatic. No pharyngeal erythema. No thyromegaly. CARDIOVASCULAR: S1 and S2 present. No murmurs, rubs, or gallops. History of mildly elevated JVD PULMONARY: Chest is clear to auscultation, no wheezing or crackles. ABDOMEN: Soft, nontender, nondistended, normoactive bowel sounds. No palpable organomegaly. MUSCULOSKELETAL: No joint swelling or deformity. EXTREMITIES: No cyanosis, clubbing, or pedal edema. NEUROLOGICAL: Gross neurological examination did not reveal any focal deficits. SKIN: No rashes. - Labs CBC & Chem 7: 11/14/18 06:10 11/14/18 06:10 Labs: Abnormal Lab Results - Last 24 Hours (Table) 11/13/18 11/13/18 11/14/18 Range/Units 16:30 21:26 06:10 RBC 3.73 L (3.80-5.40) m/uL Hgb 11.2 L (11.4-16.0) gm/dL Lymphocytes # 0.3 L (1.0-4.8) k/uL Carbon Dioxide (22-30) mmol/L BUN (7-17) mg/dL Glucose (74-99) mg/dL POC Glucose (mg/dL) 247 H 207 H (75-99) mg/dL 11/14/18 11/14/18 11/14/18 Range/Units 06:10 06:21 11:34 RBC (3.80-5.40) m/uL Hgb (11.4-16.0) gm/dL Lymphocytes # (1.0-4.8) k/uL Carbon Dioxide 32 H (22-30) mmol/L BUN 58 H (7-17) mg/dL Glucose 200 H (74-99) mg/dL POC Glucose (mg/dL) 223 H 203 H (75-99) mg/dL Microbiology - Last 24 Hours (Table) 11/11/18 23:05 Urine Culture - Final Urine,Ureter Enterococcus faecalis 11/10/18 15:00 Blood Culture - Preliminary Blood No Growth after 72 hours Assessment and Plan Plan: -Sepsis secondary to prerenal of pneumonia most probably my suspicion is low for urinary tract infection patient may have a symptomatic bacteriuria patient symptoms improved with Rocephin and azithromycin and patient is afebrile doesn' t have any leukocytosis. -COPD with acute exacerbation patient symptoms improved no wheezing today patient will be switched to oral steroids -Congestive chronic diastolic dysfunction with acute exacerbation can you with IV Lasix and the patient probably can be discharged tomorrow motor Lasix. -Moderate mitral regurgitation -Elevated liver enzymes secondary to hepatic congestion which is improving -Coronary artery disease -Atrial fibrillation presently rate controlled -Type 2 diabetes mellitus -Hypertension -Hyperlipidemia -Generalized deconditioning.
--- NOTE | 2018-11-14 16:46 | P.PN ---
Subjective Progress Note Date: 11/14/18 Principal diagnosis: Acute hypoxic respiratory failure secondary to suspected aspiration pneumonia. This is a very pleasant 78-year-old female patient who follows with Dr. Bailey as her primary care physician. She has history of atrial fibrillation, coronary artery disease, diabetes Eric, gastroesophageal reflux disease, hyperlipidemia, hypertension, osteoarthritis, obstructive sleep apnea, chronic obstructive pulmonary disease on oxygen at 3 L at home. Previous smoking history. The patient recently had undergone a procedure for a nosebleed and a few days later developed increasing shortness of breath cough and congestion and was brought here to the emergency room yesterday for the same. As x-ray revealed a patchy right perihilar infiltrate and cardiomegaly. He did have O2 saturation of 81% on room air on presentation. We're consulted for the same. She is seen today on the selective care unit. She is awake and alert sitting up in a chair at the bedside. She is somewhat of a poor historian. She currently denies any worsening shortness of breath. She has a loose nonproductive cough. Taking O2 saturations in the upper 90s on 4 L/m per nasal cannula. She's been afebrile. Hemodynamically stable. Sputum cultures pending. White count 13.1. Hemoglobin 11.2. Creatinine 0.88. Influenza screen negative. Patient was reevaluated today on 11/12/2018, feeling much better, breathing a lot easier. Minimal cough, the cough is productive with yellow phlegm, denies any fever no chills no hemoptysis no chest pain. Denies any wheezing. Patient remains on 4 L nasal cannula, and her O2 saturation is in the 90s. CBC was noted to be normal. Electrolytes are normal BUN is 45 creatinine is 1.05. On 11/13/2018 patient seen in follow-up on selective care unit. She is on 2 L per nasal cannula her pulse ox is 100%, patient is afebrile. Lung sounds are diminished, no wheezes, no rhonchi. Urine culture was positive for group D enterococcus, sputum culture and blood culture showed no growth. Current antibiotics include Zithromax, and Rocephin, patient is on IV Lasix at 40 mg daily, repeat chest x-ray is pending. Patient is on IV steroids, belies bronchodilators, she states she is breathing easier. Today's labs have been reviewed, WBC is 7.7, hemoglobin is 11.0, elective was were within normal limits , BUN is 55 and creatinine 0.94. The patient is seen today 11/14/2017 in follow-up on the selective care unit. She is currently sitting up in bed. She is awake and alert in no acute distress. He continues with a loose nonproductive cough. Currently afebrile. Maintaining O2 saturations in the upper 90s on 2 L/m per nasal cannula. Hemodynamically stable. Urine was positive for Enterococcus faecalis. Blood and sputum cultures negative. White count 7.4. Hemoglobin 11.2. Creatinine 0.90. Objective - Vital Signs Vital signs: Vital Signs Temp 97.3 F L 11/14/18 15:49 Pulse 77 11/14/18 16:00 Resp 18 11/14/18 16:00 BP 135/69 11/14/18 15:49 Pulse Ox 99 11/14/18 15:49 Intake & Output 11/13/18 11/14/18 11/14/18 18:59 06:59 18:59 Intake Total 840 340 Balance 840 340 Weight 96.4 kg 96.4 kg Intake: Intake, IV Titration 100 Amount Sodium Chloride 0.9% 1, 100 000 ml @ 20 mls/hr IV . Q24H [facility] Rx#:[id number] Oral 840 240 Other: Voiding Method Diaper Diaper Diaper Incontinent Incontinent Incontinent # Voids 2 1 1 # Bowel Movements 1 - Exam - Constitutional General appearance: mild distress, morbidly obese - EENT Eyes: EOMI, PERRLA ENT: hard of hearing Ears: bilateral: normal - Neck Neck: normal ROM Carotids: bilateral: upstroke normal Thyroid: bilateral: normal size - Respiratory Respiratory: right: rhonchi - Cardiovascular Rhythm: regular Heart sounds: normal: S1, S2 - Gastrointestinal General gastrointestinal: normal bowel sounds - Integumentary Integumentary: normal turgor - Neurologic Neurologic: CNII-XII intact - Musculoskeletal Musculoskeletal: generalized weakness - Psychiatric Alert and oriented to person. Poor historian. - Labs CBC & Chem 7: 11/14/18 06:10 11/14/18 06:10 Labs: Abnormal Lab Results - Last 24 Hours (Table) 11/13/18 11/14/18 11/14/18 Range/Units 21:26 06:10 06:10 RBC 3.73 L (3.80-5.40) m/uL Hgb 11.2 L (11.4-16.0) gm/dL Lymphocytes # 0.3 L (1.0-4.8) k/uL Carbon Dioxide 32 H (22-30) mmol/L BUN 58 H (7-17) mg/dL Glucose 200 H (74-99) mg/dL POC Glucose (mg/dL) 207 H (75-99) mg/dL 11/14/18 11/14/18 Range/Units 06:21 11:34 RBC (3.80-5.40) m/uL Hgb (11.4-16.0) gm/dL Lymphocytes # (1.0-4.8) k/uL Carbon Dioxide (22-30) mmol/L BUN (7-17) mg/dL Glucose (74-99) mg/dL POC Glucose (mg/dL) 223 H 203 H (75-99) mg/dL Microbiology - Last 24 Hours (Table) 11/11/18 23:05 Urine Culture - Final Urine,Ureter Enterococcus faecalis 11/10/18 15:00 Blood Culture - Preliminary Blood No Growth after 72 hours Assessment and Plan Assessment: Impression: #1 Acute hypoxic respiratory failure secondary to a right perihilar infiltrate suspect aspiration pneumonia. Chest x-ray improved. #2 Recent procedure for epistaxis. #3 History of atrial fibrillation, currently sinus rhythm. #4 Coronary artery disease. #5 Diabetes mellitus. #6 Gastroesophageal reflux disease. #7 Hypertension. #8 Hyperlipidemia. #9 Osteoarthritis. #10 Former smoker. #11 Anxiety/depression. Plan: The patient was seen and evaluated by Dr. Hope. Chest x-ray and labs were reviewed. We will continue with antibiotics in the form of azithromycin. Continue Bronchodilators. Continue diuretics. Titrate down the FiO2 as tolerated. Heparin for DVT prophylaxis. We'll continue to follow and make further recommendations based on her clinical status. I, the cosigning physician, performed a history & physical examination of the patient. Lungs sounds crackles in the posterior bases. Maintaining good O2 saturations in the 90s on 2 L/m per nasal cannula. I discussed the assessment and plan of care with my nurse practitioner, Codi Kasper. I attest to the above note as dictated by her.
[2018-11-14 16:49] LABS: Glucose,Whole Blood 236 mg/dL (75-99)
[2018-11-14] MEDS: SODIUM CHLORIDE 0.9% 1,000 ML IV SCH (17:03)
[2018-11-14] MEDS: MELATONIN 3 MG TABLET PO SCH (20:21)
[2018-11-14 21:05] LABS: Glucose,Whole Blood 177 mg/dL (75-99)
[2018-11-14] MEDS ORDERED: IPRATROPIUM-ALBUTEROL 3 ML NEB ONE (23:15)
--- NOTE | 2018-11-15 03:13 | CONS ---
CONSULTATION DATE OF SERVICE: 11/14/2018 REASON FOR CONSULTATION: Urinary tract infection. HISTORY OF PRESENT ILLNESS: The patient is a 78-year-old female presenting to the ER at [facility] on 11/10/2018 with chief complaints of increasing shortness of breath along with cough, fever and chills. Apparently symptoms have been going on for a few days before she was in the hospital. The patient did have a congested cough, bringing up small amount of sputum. No hemoptysis. No chest pain. No abdominal pain. No diarrhea. The patient did have some urinary frequency but denies any incontinence of stool flank pain. The patient has been evaluated. The patient did have a chest x-ray on admission, which shows patchy right perihilar infiltrate noted. The patient did have a repeat x-ray on the , which did show chronic parenchymal changes with suspicion of new focal infiltrate. The patient did have a UA that was obtained on admission which does show moderate leukocyte esterase with occasional bacteria. Only 1 WBC. Those urine cultures have now been finalized Enterococcus faecalis, sensitive to ampicillin and Vanco. However, THE PATIENT IS ALLERGIC TO BOTH TO PENICILLIN AND VANCOMYCIN that prompted this infectious disease consultation. REVIEW OF SYSTEMS: Positive points have been mentioned in HPI: Rest of the system has been negative. PAST MEDICAL HISTORY: Atrial fibrillation, coronary artery disease, diabetes mellitus, gastroesophageal reflux disease, hyperlipidemia, hypertension, osteoarthritis, pneumonia, sleep apnea. PAST SURGICAL HISTORY: Bilateral cataract surgery, bilateral knee replacement, tonsillectomy. SOCIAL HISTORY: Remote history of smoking. No drinking or drug use. FAMILY HISTORY: Father with history of coronary artery disease. Mother with history of dementia and hypertension. ALLERGIES: IODINATED CONTRAST DYE, PENICILLIN, VANCOMYCIN, but not specifically she did not remember the type of reaction she has to penicillin or vancomycin. MEDICATION: Currently include the patient is on Tylenol, Patterson, DuoNeb, Zyloprim, Xanax, vitamin C, aspirin, Zithromax, Dulcolax, Lasix, Robitussin, heparin, Plaquenil, NovoLog, Levemir, Mag oxide, melatonin, Toprol-XL. PHYSICAL EXAMINATION: Blood pressure is 109/64 with a pulse of 80, temperature is 97.5. She is 95% on 3 L nasal cannula. General description is an elderly female up in the chair in no distress. No tachypnea or accessory muscles of respiration use. HEENT: Shows pallor. No scleral icterus. Oral mucosa membranes dry. No pharyngeal erythema or thrush. Neck: Trachea central. No thyromegaly. Lungs unlabored breathing. Coarse breath sounds at bases. No wheeze. Heart S1, S2. Regular rate and rhythm. ABDOMEN: Soft. No tenderness. No guarding or rigidity. EXTREMITIES: No edema of the feet. Skin examination: No rash or mass palpable. NEUROLOGICAL: Patient is awake, alert, oriented times three. Mood and affect normal. LABS: Hemoglobin 11.2, white count 7.4, BUN of 15, creatinine 0.90. Electrolytes have been normal. Urine was mildly positive. Influenza serology was negative. Urine culture with Enterococcus faecalis at colonies. DIAGNOSTIC IMPRESSION AND PLAN: 1. Patient with positive urine cultures with enterococcus faecalis, which is a low colony count in this patient whose UA was not significantly positive either, did show some leukocyte esterase, though no elevated white count, could be more likely colonization or contamination. The patient did have some frequency of urine. It could be related to the diuretics and no burning or suprapubic or flank pain. 2. The patient who does have MULTIPLE ANTIBIOTIC ALLERGIES that does limit the number of antibiotics that could be safely used. PLAN: 1. We will repeat UA and culture. RN has been advised to obtain a clean-catch sample. 2. We will hold on any further antibiotic therapy for the positive urine culture as clinical suspicion low for true UTI. 3. We will follow up on clinical condition and repeat UA to further antibiotics if needed. Thank you for this consultation. We will follow this patient along with you. MMODL / IJN: [id number] /
[2018-11-15] MEDS: IPRATROPIUM-ALBUTEROL 3 ML NEB INHALATION SCH ×7 (05:05→23:33)
[2018-11-15 05:39] LABS: Glucose,Whole Blood 98 mg/dL (75-99)
[2018-11-15] MEDS: INSULIN ASPART 100 UNIT/ML 1 ML 10 ML VIAL SQ SCH ×4 (05:54→21:19)
[2018-11-15] MEDS: PANTOPRAZOLE 40 MG TABLET PO SCH (06:05)
[2018-11-15 07:45] LABS: Potassium 4.5 mmol/L (3.5-5.1)
[2018-11-15 07:59] LABS: Basophils % (A) 0 %; Eosinophils % (A) 0 %; HCT 36.6 % (34.0-46.0); HGB 11.6 gm/dL (11.4-16.0); Hypochromasia Slight; Lymphocytes # (A) 0.7 k/uL (1.0-4.8); Lymphocytes % (A) 8 %; MCH 29.6 pg (25.0-35.0); MCHC 31.8 g/dL (31.0-37.0); MCV 93.4 fL (80.0-100.0); Mean Platelet Volume 7.1; Monocytes # (A) 0.4 k/uL (0-1.0); Monocytes % (A) 4 %; Neutrophils # (A) 8.2 k/uL (1.3-7.7); Neutrophils % (A) 87 %; Platelet Count 263 k/uL (150-450); RBC 3.92 m/uL (3.80-5.40); RDW 14.7 % (11.5-15.5); WBC 9.4 k/uL (3.8-10.6)
[2018-11-15] MEDS: predniSONE 20 MG TAB PO SCH (09:34)
[2018-11-15] MEDS: ASCORBIC ACID 500 MG TAB PO SCH (09:34)
[2018-11-15] MEDS: AZITHROMYCIN 500 MG TAB PO SCH (09:34)
[2018-11-15] MEDS: HEPARIN SODIUM,PORCINE 5,000 UNIT/ML 1 ML VIAL SQ SCH ×2 (09:35→21:19)
[2018-11-15] MEDS: MAGNESIUM OXIDE 400 MG TAB PO SCH (09:35)
[2018-11-15] MEDS: ALLOPURINOL 300 MG TAB PO SCH (09:35)
[2018-11-15] MEDS: FUROSEMIDE 10 MG/ML 4 ML VIAL IV SCH (09:35)
[2018-11-15] MEDS: ASPIRIN 81 MG PO SCH (09:35)
[2018-11-15] MEDS: METOPROLOL SUCCINATE (ER) 25 MG TAB.ER.24H PO SCH (09:35)
[2018-11-15] MEDS: SERTRALINE 100 MG TAB PO SCH (09:35)
[2018-11-15] MEDS: CHOLECALCIFEROL 1,000 UNIT TAB PO SCH (09:35)
[2018-11-15] MEDS: INSULIN DETEMIR 100 UNIT/ML 10 ML VIAL SQ SCH (09:41)
[2018-11-15] MEDS: HYDROXYCHLOROQUINE SULFATE 200 MG TAB PO SCH ×2 (09:41→21:19)
--- NOTE | 2018-11-15 11:15 | P.PN ---
Subjective Patient the appears to have come in with the symptoms of sepsis with mild low- grade fever and leukocytosis appears to have perihilar pneumonia and patient is being treated her with ceftriaxone is from azithromycin. Patient does not appear to have any UTI-like symptoms but urine analysis and urine culture was often urine culture is positive for Enterococcus faecalis but patient has ALLERGY to penicillins and vancomycin. I'm unsure whether patient actually has a UTI are this is asymptomatic bacteriuria because of that reason I'll consult infectious disease. Patient is also being treated for COPD with systemic steroids which will be switched to oral and patient is also being treated for chronic diastolic dysfunction with acute examination patient is presently on IV Lasix. Patient is bit tired beyond which patient is otherwise clinically doing well is being evaluated for subacute rehabilitation placement 11/15/2018 Patient was evaluated by infectious disease and there is no evidence of urinary tract infection because of which a specific of urine cultures being positive for enterococcus patient will not need any additional antibiotics will continue with present antibiotics patient is comparing of tightness which I believe is secondary to Lasix and diuretic therapy. Cardiology is recommending continuation of IV Lasix which will be continued. Patient will be transferred to cardiac unit possibly of discharge tomorrow to subacute rehabilitation. Constitutional: denied any fever. Cardio vascular: denied any chest pain, palpitations Gastrointestinal denied any nausea vomiting Pulmonary: Denied any shortness of breath cough Neurologic denied any new focal deficits All inpatient medications were reviewed and appropriate changes in these medications as dictated in the interval history and assessment and plan. Objective - Vital Signs Vital signs: Vital Signs Temp 97.4 F L 11/15/18 04:00 Pulse 74 11/15/18 09:08 Resp 18 11/15/18 04:00 BP 107/53 11/15/18 04:00 Pulse Ox 98 11/15/18 09:00 Intake & Output 11/14/18 11/15/18 11/15/18 18:59 06:59 18:59 Intake Total 580 20 Balance 580 20 Weight 96.4 kg 97.8 kg Intake: IV 20 0.9 20 Intake, IV Titration 100 Amount Sodium Chloride 0.9% 1, 100 000 ml @ 20 mls/hr IV . Q24H [facility] Rx#:[id number] Oral 480 Other: Voiding Method Diaper Diaper Incontinent Incontinent # Voids 1 2 # Bowel Movements 1 1 - Exam PHYSICAL EXAMINATION: GENERAL: The patient is alert and oriented x3, not in any acute distress. Well developed, well nourished. HEENT: Pupils are round and equally reacting to light. EOMI. No scleral icterus. No conjunctival pallor. Normocephalic, atraumatic. No pharyngeal erythema. No thyromegaly. CARDIOVASCULAR: S1 and S2 present. No murmurs, rubs, or gallops. History of mildly elevated JVD PULMONARY: Chest is clear to auscultation, no wheezing or crackles. ABDOMEN: Soft, nontender, nondistended, normoactive bowel sounds. No palpable organomegaly. MUSCULOSKELETAL: No joint swelling or deformity. EXTREMITIES: No cyanosis, clubbing, patient has 2+ pitting bilateral pedal edema extending up to knee NEUROLOGICAL: Gross neurological examination did not reveal any focal deficits. SKIN: No rashes. - Labs CBC & Chem 7: 11/15/18 06:22 11/15/18 06:22 Labs: Abnormal Lab Results - Last 24 Hours (Table) 11/14/18 11/14/18 11/14/18 Range/Units 11:34 16:47 21:01 Neutrophils # (1.3-7.7) k/uL Lymphocytes # (1.0-4.8) k/uL Carbon Dioxide (22-30) mmol/L BUN (7-17) mg/dL POC Glucose (mg/dL) 203 H 236 H 177 H (75-99) mg/dL 11/15/18 11/15/18 Range/Units 06:22 06:22 Neutrophils # 8.2 H (1.3-7.7) k/uL Lymphocytes # 0.7 L (1.0-4.8) k/uL Carbon Dioxide 36 H (22-30) mmol/L BUN 58 H (7-17) mg/dL POC Glucose (mg/dL) (75-99) mg/dL Microbiology - Last 24 Hours (Table) 11/10/18 15:00 Blood Culture - Preliminary Blood No Growth after 96 hours 11/11/18 23:05 Urine Culture - Final Urine,Ureter Enterococcus faecalis Assessment and Plan Plan: -Sepsis secondary to prerenal of pneumonia most probably my suspicion is low for urinary tract infection patient may have a symptomatic bacteriuria patient symptoms improved with Rocephin and azithromycin and patient is afebrile doesn' t have any leukocytosis.was evaluated by infectious disease no additional antibiotics for positive cultures -COPD with acute exacerbation patient symptoms improved no wheezing today patient will be switched to oral steroids -Congestive chronic diastolic dysfunction with acute exacerbation can you with IV Lasix and the patient probably can be discharged tomorrow oral Lasix. -Moderate mitral regurgitation -Elevated liver enzymes secondary to hepatic congestion was stable liver enzymes -Coronary artery disease -Atrial fibrillation presently rate controlled -Type 2 diabetes mellitus -Hypertension -Hyperlipidemia -Generalized deconditioning.
--- NOTE | 2018-11-15 11:27 | P.PN ---
Subjective Progress Note Date: 11/15/18 This is a very pleasant 78-year-old female patient she is a fairly poor historian, who has history of atrial fibrillation, coronary artery disease, diabetes , gastroesophageal reflux disease, hyperlipidemia, hypertension, osteoarthritis, obstructive sleep apnea, chronic obstructive pulmonary disease on oxygen at 3 L at home. Previous smoking history. The patient recently had undergone a procedure for a nosebleed and a few days later developed increasing shortness of breath cough and congestion and was brought here to the emergency room yesterday for the same. Initial Chest -ray revealed a patchy right perihilar infiltrate and cardiomegaly. Repeat chest x-ray performed today showed cardiomegaly with prominence of the pulmonary arteries suggesting some pulmonary artery hypertension. Cannot exclude bilateral effusions. White blood cell count 13.1, hemoglobin 11.2, platelet count 304. Sodium 144, potassium 3.5, BUN 39, creatinine 0.8. Magnesium 1.4, alk phos 132, AST 45, ALT 47. Initial troponin 0.067. BNP level 13,600. Influenza A and B are negative. Patient was initiated on IV antibiotics for pneumonia, she has also been started on IV Lasix. According to the patient, today she started putting out a significant amount of urine. He is to cough up dark wall sputum. Blood pressure this morning 122/60 with a heart rate in the 60s, 96% on 4 L. 11/12/2018 Patient seen and examined this morning, sitting up in the chair at bedside, sinus also present. Diuresing on Lasix, weight is down 1 kg today. Continues to cough up a significant amount of wall sputum. Continues to have persistent cough. Blood pressure 136/70 with a heart rate in the 70s, 94% on 3 L. White blood cell count 8.5, hemoglobin 11.5, platelet count 287. Sodium 139, potassium 4.4, BUN 45, creatinine 1.0. 11/13/2018 Patient was seen and examined this morning, sitting up in her bed. She does state that overall her breathing is improving. She continues to have a cough however today it appears to be much less productive. She does feel as though she's putting out a lot of urine however her weight is not in indicating a downward trend. White blood cell count is normal, hemoglobin 11, platelet count 280. Sodium 138, potassium 4.6, BUN 55 and creatinine 0.9. 11/14/2018 Patient was seen and examined this morning, states that her breathing is significantly improved, continues to have cough, not much sputum production today. Continues to be on IV Lasix. White blood cell count 7.4, hemoglobin 11.2, platelet count 237. Sodium 138, potassium 4.4, BUN 58, creatinine 0.9. 11/15/2018 Patient seen and examined this morning, continues to improve overall. Denies cough today. Blood pressure 108/50, heart rate in the 70s, 96% on 3 L of oxygen. White blood cell count 9.4, hemoglobin 11.6, platelet count 263. Sodium 140, potassium 4.5, BUN 58, creatinine 1.0. Objective - Vital Signs Vital signs: Vital Signs Temp 97.4 F L 11/15/18 04:00 Pulse 74 11/15/18 09:08 Resp 18 11/15/18 04:00 BP 107/53 11/15/18 04:00 Pulse Ox 98 11/15/18 09:00 Intake & Output 11/14/18 11/15/18 11/15/18 18:59 06:59 18:59 Intake Total 580 20 Balance 580 20 Weight 96.4 kg 97.8 kg Intake: IV 20 0.9 20 Intake, IV Titration 100 Amount Sodium Chloride 0.9% 1, 100 000 ml @ 20 mls/hr IV . Q24H [facility] Rx#:[id number] Oral 480 Other: Voiding Method Diaper Diaper Incontinent Incontinent # Voids 1 2 # Bowel Movements 1 1 - Exam PHYSICAL EXAMINATION: GENERAL: 78-year-old female in no acute distress at the time of my examination HEENT: Head is atraumatic, normocephalic. Pupils equal, round. Sclera anicteric. Conjunctiva are clear. Mucous membranes of the mouth are moist. Neck is supple. There is no elevated jugular venous pressure. No carotid bruit is heard. HEART EXAMINATION: Heart S1, S2 normal. No murmur or gallop heard. CHEST EXAMINATION: Lungs reveal decreased air exchange, much less wheezing today. ABDOMEN: Soft, nontender. Bowel sounds are heard. No organomegaly noted. EXTREMITIES: 2+ peripheral pulses with no evidence of peripheral edema and no calf tenderness noted. NEUROLOGIC patient is awake, alert and oriented 3 . . - Labs CBC & Chem 7: 11/15/18 06:22 11/15/18 06:22 Labs: Abnormal Lab Results - Last 24 Hours (Table) 11/14/18 11/14/18 11/14/18 Range/Units 11:34 16:47 21:01 Neutrophils # (1.3-7.7) k/uL Lymphocytes # (1.0-4.8) k/uL Carbon Dioxide (22-30) mmol/L BUN (7-17) mg/dL POC Glucose (mg/dL) 203 H 236 H 177 H (75-99) mg/dL 11/15/18 11/15/18 Range/Units 06:22 06:22 Neutrophils # 8.2 H (1.3-7.7) k/uL Lymphocytes # 0.7 L (1.0-4.8) k/uL Carbon Dioxide 36 H (22-30) mmol/L BUN 58 H (7-17) mg/dL POC Glucose (mg/dL) (75-99) mg/dL Microbiology - Last 24 Hours (Table) 11/10/18 15:00 Blood Culture - Preliminary Blood No Growth after 96 hours 11/11/18 23:05 Urine Culture - Final Urine,Ureter Enterococcus faecalis Assessment and Plan Plan: Assessment and plan #1 Acute hypoxic respiratory failure secondary to a right perihilar infiltrate suspect aspiration pneumonia. #2 Recent procedure for epistaxis. #3 History of atrial fibrillation, , paroxysmal, currently sinus rhythm. #4 Coronary artery disease. Follows with a biochemistry teacher out of town #5 Diabetes mellitus. #6 Gastroesophageal reflux disease. #7 Hypertension. #8 Hyperlipidemia. #9 Osteoarthritis. #10 Former smoker. #11 diastolic congestive heart failure acute on chronic. Plan We will continue current dose of IV Lasix for 24 hours, continue to monitor intake and output along with daily weights and daily lytes BUN and creatinine. Change to oral diuretics in the morning if stable. DNP note has been reviewed, I agree with a documented findings and plan of care. Patient was seen and examined.
[2018-11-15 11:38] LABS: Glucose,Whole Blood 193 mg/dL (75-99)
--- NOTE | 2018-11-15 14:32 | P.PN ---
Subjective Progress Note Date: 11/15/18 Principal diagnosis: Acute hypoxic respiratory failure secondary to suspected aspiration pneumonia. This is a very pleasant 78-year-old female patient who follows with Dr. Bailey as her primary care physician. She has history of atrial fibrillation, coronary artery disease, diabetes Eric, gastroesophageal reflux disease, hyperlipidemia, hypertension, osteoarthritis, obstructive sleep apnea, chronic obstructive pulmonary disease on oxygen at 3 L at home. Previous smoking history. The patient recently had undergone a procedure for a nosebleed and a few days later developed increasing shortness of breath cough and congestion and was brought here to the emergency room yesterday for the same. As x-ray revealed a patchy right perihilar infiltrate and cardiomegaly. He did have O2 saturation of 81% on room air on presentation. We're consulted for the same. She is seen today on the selective care unit. She is awake and alert sitting up in a chair at the bedside. She is somewhat of a poor historian. She currently denies any worsening shortness of breath. She has a loose nonproductive cough. Taking O2 saturations in the upper 90s on 4 L/m per nasal cannula. She's been afebrile. Hemodynamically stable. Sputum cultures pending. White count 13.1. Hemoglobin 11.2. Creatinine 0.88. Influenza screen negative. Patient was reevaluated today on 11/12/2018, feeling much better, breathing a lot easier. Minimal cough, the cough is productive with yellow phlegm, denies any fever no chills no hemoptysis no chest pain. Denies any wheezing. Patient remains on 4 L nasal cannula, and her O2 saturation is in the 90s. CBC was noted to be normal. Electrolytes are normal BUN is 45 creatinine is 1.05. On 11/13/2018 patient seen in follow-up on selective care unit. She is on 2 L per nasal cannula her pulse ox is 100%, patient is afebrile. Lung sounds are diminished, no wheezes, no rhonchi. Urine culture was positive for group D enterococcus, sputum culture and blood culture showed no growth. Current antibiotics include Zithromax, and Rocephin, patient is on IV Lasix at 40 mg daily, repeat chest x-ray is pending. Patient is on IV steroids, belies bronchodilators, she states she is breathing easier. Today's labs have been reviewed, WBC is 7.7, hemoglobin is 11.0, elective was were within normal limits , BUN is 55 and creatinine 0.94. The patient is seen today 11/14/2018 in follow-up on the selective care unit. She is currently sitting up in bed. She is awake and alert in no acute distress. He continues with a loose nonproductive cough. Currently afebrile. Maintaining O2 saturations in the upper 90s on 2 L/m per nasal cannula. Hemodynamically stable. Urine was positive for Enterococcus faecalis. Blood and sputum cultures negative. White count 7.4. Hemoglobin 11.2. Creatinine 0.90. The patient is seen today 11/15/2018 in follow-up on the selective care unit. She is currently sitting up in a chair at the bedside. She is awake and alert in no acute distress. She is maintaining O2 saturations in the mid 90s on 2 L/ m per nasal cannula. She's been afebrile. Hemodynamically stable. White count 9.4. Hemoglobin 11.6. Creatinine 1.01. She remains on IV diuretics. Objective - Vital Signs Vital signs: Vital Signs Temp 97.7 F 11/15/18 12:00 Pulse 71 11/15/18 12:26 Resp 14 11/15/18 12:00 BP 131/77 11/15/18 12:00 Pulse Ox 97 11/15/18 12:00 Intake & Output 11/14/18 11/15/18 11/15/18 18:59 06:59 18:59 Intake Total 580 20 Balance 580 20 Weight 96.4 kg 97.8 kg Intake: IV 20 0.9 20 Intake, IV Titration 100 Amount Sodium Chloride 0.9% 1, 100 000 ml @ 20 mls/hr IV . Q24H [facility] Rx#:[id number] Oral 480 Other: Voiding Method Diaper Diaper Diaper Incontinent Incontinent Incontinent # Voids 1 2 1 # Bowel Movements 1 1 - Exam - Constitutional General appearance: mild distress, morbidly obese, on nasal cannula. - EENT Eyes: EOMI, PERRLA ENT: hard of hearing Ears: bilateral: normal - Neck Neck: normal ROM Carotids: bilateral: upstroke normal Thyroid: bilateral: normal size - Respiratory Respiratory: right: rhonchi - Cardiovascular Rhythm: regular Heart sounds: normal: S1, S2 - Gastrointestinal General gastrointestinal: normal bowel sounds - Integumentary Integumentary: normal turgor - Neurologic Neurologic: CNII-XII intact - Musculoskeletal Musculoskeletal: generalized weakness - Psychiatric Alert and oriented to person. Poor historian. - Labs CBC & Chem 7: 11/15/18 06:22 11/15/18 06:22 Labs: Abnormal Lab Results - Last 24 Hours (Table) 11/14/18 11/14/18 11/15/18 Range/Units 16:47 21:01 06:22 Neutrophils # 8.2 H (1.3-7.7) k/uL Lymphocytes # 0.7 L (1.0-4.8) k/uL Carbon Dioxide (22-30) mmol/L BUN (7-17) mg/dL POC Glucose (mg/dL) 236 H 177 H (75-99) mg/dL 11/15/18 11/15/18 Range/Units 06:22 11:34 Neutrophils # (1.3-7.7) k/uL Lymphocytes # (1.0-4.8) k/uL Carbon Dioxide 36 H (22-30) mmol/L BUN 58 H (7-17) mg/dL POC Glucose (mg/dL) 193 H (75-99) mg/dL Microbiology - Last 24 Hours (Table) 11/14/18 23:00 Urine Culture - Preliminary Urine,Voided 11/10/18 15:00 Blood Culture - Preliminary Blood No Growth after 96 hours 11/11/18 23:05 Urine Culture - Final Urine,Ureter Enterococcus faecalis Assessment and Plan Assessment: Impression: #1 Acute hypoxic respiratory failure secondary to a right perihilar infiltrate suspect aspiration pneumonia. Chest x-ray improved. #2 Recent procedure for epistaxis. #3 History of atrial fibrillation, currently sinus rhythm. #4 Coronary artery disease. #5 Diabetes mellitus. #6 Gastroesophageal reflux disease. #7 Hypertension. #8 Hyperlipidemia. #9 Osteoarthritis. #10 Former smoker. #11 Anxiety/depression. Plan: The patient was seen and evaluated by Dr. Hope. We will continue with antibiotics in the form of azithromycin. Continue Bronchodilators. Continue diuretics. Titrate down the FiO2 as tolerated. Heparin for DVT prophylaxis. We'll continue to follow and make further recommendations based on her clinical status. Plan is to convert to oral Lasix and probable discharge in the a.m. I, the cosigning physician, performed a history & physical examination of the patient. Lungs sounds crackles in the posterior bases. Maintaining good O2 saturations in the 90s on 2 L/m per nasal cannula. I discussed the assessment and plan of care with my nurse practitioner, Codi Kasper. I attest to the above note as dictated by her.
[2018-11-15 17:12] LABS: Glucose,Whole Blood 164 mg/dL (75-99)
[2018-11-15] MEDS: SODIUM CHLORIDE 0.9% 1,000 ML IV SCH (20:06)
[2018-11-15 20:20] LABS: Glucose,Whole Blood 258 mg/dL (75-99)
[2018-11-15] MEDS: MELATONIN 3 MG TABLET PO SCH (21:20)
--- NOTE | 2018-11-15 22:48 | PN ---
PROGRESS NOTE DATE OF SERVICE: 11/15/2018 REASON FOR FOLLOWUP: Possible urinary tract infection. INTERVAL HISTORY: The patient is currently afebrile. She is breathing more comfortably. Denies having any chest pain. She did have some cough. No abdominal pain. Some urinary frequency but no burning. No diarrhea. PHYSICAL EXAMINATION: Blood pressure 133/67, pulse of 74, temperature 96.9. She is 98% on 2 L nasal cannula. General description is an elderly female up in the chair in no distress. RESPIRATORY SYSTEM: Unlabored breathing with decreased breath sounds at the base. No wheeze. HEART: S1, S2. Regular rate and rhythm. ABDOMEN: Soft. No tenderness. LABS: Hemoglobin 11.6, white count 9.4, BUN 58, creatinine 1.01. cultures are unfortunately not done. DIAGNOSTIC IMPRESSION AND PLAN: Patient with urine culture positive for Enterococcus faecalis in this patient who does have MULTIPLE ANTIBIOTIC ALLERGIES. Her UA was not significantly positive. Did have some urinary frequency but no burning, with a question of possible contamination versus colonization. Repeat urine culture was ordered, unfortunately not completed. RN instructed again to get the UA and culture. Will keep the patient off antibiotic therapy specifically for UTI and continue with supportive care. MMODL / IJN: [id number] /
[2018-11-16] MEDS: IPRATROPIUM-ALBUTEROL 3 ML NEB INHALATION SCH ×6 (03:18→23:33)
[2018-11-16] MEDS: PANTOPRAZOLE 40 MG TABLET PO SCH (05:32)
[2018-11-16 05:52] LABS: Glucose,Whole Blood 119 mg/dL (75-99)
[2018-11-16] MEDS: INSULIN ASPART 100 UNIT/ML 1 ML 10 ML VIAL SQ SCH ×4 (06:07→20:20)
[2018-11-16 07:16] LABS: Calcium 9.7 mg/dL (8.4-10.2); Potassium 4.4 mmol/L (3.5-5.1)
[2018-11-16] MEDS: CHOLECALCIFEROL 1,000 UNIT TAB PO SCH (09:13)
[2018-11-16] MEDS: INSULIN DETEMIR 100 UNIT/ML 10 ML VIAL SQ SCH (09:13)
[2018-11-16] MEDS: HYDROXYCHLOROQUINE SULFATE 200 MG TAB PO SCH ×2 (09:13→20:19)
[2018-11-16] MEDS: HEPARIN SODIUM,PORCINE 5,000 UNIT/ML 1 ML VIAL SQ SCH ×2 (09:13→20:19)
[2018-11-16] MEDS: METOPROLOL SUCCINATE (ER) 25 MG TAB.ER.24H PO SCH (09:14)
[2018-11-16] MEDS: SERTRALINE 100 MG TAB PO SCH (09:14)
[2018-11-16] MEDS: FUROSEMIDE 20 MG TAB PO SCH ×2 (09:14→16:19)
[2018-11-16] MEDS: ALLOPURINOL 300 MG TAB PO SCH (09:30)
[2018-11-16] MEDS: ASCORBIC ACID 500 MG TAB PO SCH (09:31)
[2018-11-16] MEDS: MAGNESIUM OXIDE 400 MG TAB PO SCH (09:31)
[2018-11-16] MEDS: AZITHROMYCIN 500 MG TAB PO SCH (09:32)
[2018-11-16] MEDS: predniSONE 20 MG TAB PO SCH (09:33)
[2018-11-16] MEDS: ASPIRIN 81 MG PO SCH (09:33)
--- NOTE | 2018-11-16 09:43 | P.PN ---
Subjective Progress Note Date: 11/16/18 This is a very pleasant 78-year-old female patient she is a fairly poor historian, who has history of atrial fibrillation, coronary artery disease, diabetes , gastroesophageal reflux disease, hyperlipidemia, hypertension, osteoarthritis, obstructive sleep apnea, chronic obstructive pulmonary disease on oxygen at 3 L at home. Previous smoking history. The patient recently had undergone a procedure for a nosebleed and a few days later developed increasing shortness of breath cough and congestion and was brought here to the emergency room yesterday for the same. Initial Chest -ray revealed a patchy right perihilar infiltrate and cardiomegaly. Repeat chest x-ray performed today showed cardiomegaly with prominence of the pulmonary arteries suggesting some pulmonary artery hypertension. Cannot exclude bilateral effusions. White blood cell count 13.1, hemoglobin 11.2, platelet count 304. Sodium 144, potassium 3.5, BUN 39, creatinine 0.8. Magnesium 1.4, alk phos 132, AST 45, ALT 47. Initial troponin 0.067. BNP level 13,600. Influenza A and B are negative. Patient was initiated on IV antibiotics for pneumonia, she has also been started on IV Lasix. According to the patient, today she started putting out a significant amount of urine. He is to cough up dark wall sputum. Blood pressure this morning 122/60 with a heart rate in the 60s, 96% on 4 L. 11/12/2018 Patient seen and examined this morning, sitting up in the chair at bedside, sinus also present. Diuresing on Lasix, weight is down 1 kg today. Continues to cough up a significant amount of wall sputum. Continues to have persistent cough. Blood pressure 136/70 with a heart rate in the 70s, 94% on 3 L. White blood cell count 8.5, hemoglobin 11.5, platelet count 287. Sodium 139, potassium 4.4, BUN 45, creatinine 1.0. 11/13/2018 Patient was seen and examined this morning, sitting up in her bed. She does state that overall her breathing is improving. She continues to have a cough however today it appears to be much less productive. She does feel as though she's putting out a lot of urine however her weight is not in indicating a downward trend. White blood cell count is normal, hemoglobin 11, platelet count 280. Sodium 138, potassium 4.6, BUN 55 and creatinine 0.9. 11/14/2018 Patient was seen and examined this morning, states that her breathing is significantly improved, continues to have cough, not much sputum production today. Continues to be on IV Lasix. White blood cell count 7.4, hemoglobin 11.2, platelet count 237. Sodium 138, potassium 4.4, BUN 58, creatinine 0.9. 11/15/2018 Patient seen and examined this morning, continues to improve overall. Denies cough today. Blood pressure 108/50, heart rate in the 70s, 96% on 3 L of oxygen. White blood cell count 9.4, hemoglobin 11.6, platelet count 263. Sodium 140, potassium 4.5, BUN 58, creatinine 1.0. 11/16/2018 Patient seen and examined this morning, sitting in a chair bedside. Breathing is significantly improved. Has more of a cough today. I pressure 130/70 with a heart rate in the 70s, 95% on 3 L of oxygen. Sodium 139, potassium 4.4, BUN 58, creatinine 0.8 Objective - Vital Signs Vital signs: Vital Signs Temp 97 F L 11/16/18 05:27 Pulse 72 11/16/18 07:50 Resp 16 11/16/18 05:27 BP 131/76 11/16/18 05:27 Pulse Ox 95 11/16/18 05:27 Intake & Output 11/15/18 11/16/18 11/16/18 18:59 06:59 18:59 Intake Total 240 20 200 Balance 240 20 200 Weight 95.3 kg Intake: IV 20 0.9 20 Oral 240 200 Other: Voiding Method Diaper Diaper Incontinent Incontinent # Voids 1 - Exam PHYSICAL EXAMINATION: GENERAL: 78-year-old female in no acute distress at the time of my examination HEENT: Head is atraumatic, normocephalic. Pupils equal, round. Sclera anicteric. Conjunctiva are clear. Mucous membranes of the mouth are moist. Neck is supple. There is no elevated jugular venous pressure. No carotid bruit is heard. HEART EXAMINATION: Heart S1, S2 normal. No murmur or gallop heard. CHEST EXAMINATION: Lungs reveal decreased air exchange, much less wheezing today. ABDOMEN: Soft, nontender. Bowel sounds are heard. No organomegaly noted. EXTREMITIES: 2+ peripheral pulses with trace evidence of peripheral edema and no calf tenderness noted. NEUROLOGIC patient is awake, alert and oriented 3 . . - Labs CBC & Chem 7: 11/15/18 06:22 11/16/18 06:33 Labs: Abnormal Lab Results - Last 24 Hours (Table) 11/15/18 11/15/18 11/15/18 Range/Units 11:34 17:01 20:19 Carbon Dioxide (22-30) mmol/L BUN (7-17) mg/dL Glucose (74-99) mg/dL POC Glucose (mg/dL) 193 H 164 H 258 H (75-99) mg/dL 11/16/18 11/16/18 Range/Units 05:49 06:33 Carbon Dioxide 38 H (22-30) mmol/L BUN 58 H (7-17) mg/dL Glucose 118 H (74-99) mg/dL POC Glucose (mg/dL) 119 H (75-99) mg/dL Microbiology - Last 24 Hours (Table) 11/10/18 15:00 Blood Culture - Preliminary Blood No Growth after 120 hours 11/14/18 23:00 Urine Culture - Preliminary Urine,Voided Assessment and Plan Plan: Assessment and plan #1 Acute hypoxic respiratory failure secondary to a right perihilar infiltrate suspect aspiration pneumonia. #2 Recent procedure for epistaxis. #3 History of atrial fibrillation, , paroxysmal, currently sinus rhythm. #4 Coronary artery disease. 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 #6 Gastroesophageal reflux disease. #7 Hypertension. #8 Hyperlipidemia. #9 Osteoarthritis. #10 Former smoker. #11 diastolic congestive heart failure acute on chronic. Plan From cardiology's perspective, we'll discontinue the IV Lasix today and start the patient on 60 mg of by mouth Lasix twice a day. She had been on 40 mg by mouth twice a day at home prior to coming to the hospital. Continue the rest of her medications. DNP note has been reviewed, I agree with a documented findings and plan of care. Patient was seen and examined.
--- NOTE | 2018-11-16 10:33 | P.DS ---
Providers Date of admission: 11/10/18 18:05 Attending physician: Iam Ruiz MD Consults: 11/10/18 18:05 Consult Physician Routine Consulting Provider: Carlos Muñoz Consult Reason/Comments: Elevated troponin, CHF Do you want consulting provider notified?: Yes 11/10/18 21:56 Consult Physician Routine Consulting Provider: Chyna Hamilton Consult Reason/Comments: copd Do you want consulting provider notified?: Yes 11/14/18 16:10 Consult Physician Routine Consulting Provider: Leonid De La Curz Consult Reason/Comments: R/O UTI Do you want consulting provider notified?: Yes Primary care physician: [facility] Hospital Course: Patient the appears to have come in with the symptoms of sepsis with mild low- grade fever and leukocytosis appears to have perihilar pneumonia and patient is being treated her with ceftriaxone is from azithromycin. Patient does not appear to have any UTI-like symptoms but urine analysis and urine culture was often urine culture is positive for Enterococcus faecalis but patient has ALLERGY to penicillins and vancomycin. I'm unsure whether patient actually has a UTI are this is asymptomatic bacteriuria because of that reason I'll consult infectious disease. Patient is also being treated for COPD with systemic steroids which will be switched to oral and patient is also being treated for chronic diastolic dysfunction with acute examination patient is presently on IV Lasix. Patient is bit tired beyond which patient is otherwise clinically doing well is being evaluated for subacute rehabilitation placement 11/15/2018 Patient was evaluated by infectious disease and there is no evidence of urinary tract infection because of which a specific of urine cultures being positive for enterococcus patient will not need any additional antibiotics will continue with present antibiotics patient is comparing of tightness which I believe is secondary to Lasix and diuretic therapy. Cardiology is recommending continuation of IV Lasix which will be continued. Patient will be transferred to cardiac unit possibly of discharge tomorrow to subacute rehabilitation. 11/16/2018 Patient still has some pedal edema with significant improvement since hospital admission. Patient will not require any more antibiotics patient was treated with ceftriaxone and azithromycin completed a course of antibiotics. Infectious disease evaluated the patient. Patient will be discharged on 60 twice a day of Lasix. Patient is still tired because of polypharmacy. PHYSICAL EXAMINATION: GENERAL: The patient is alert and oriented x3, not in any acute distress. Well developed, well nourished. HEENT: Pupils are round and equally reacting to light. EOMI. No scleral icterus. No conjunctival pallor. Normocephalic, atraumatic. No pharyngeal erythema. No thyromegaly. CARDIOVASCULAR: S1 and S2 present. No murmurs, rubs, or gallops. History of mildly elevated JVD PULMONARY: Chest is clear to auscultation, no wheezing or crackles. ABDOMEN: Soft, nontender, nondistended, normoactive bowel sounds. No palpable organomegaly. MUSCULOSKELETAL: No joint swelling or deformity. EXTREMITIES: No cyanosis, clubbing, patient has 1+ pitting bilateral pedal edema extending up to knee NEUROLOGICAL: Gross neurological examination did not reveal any focal deficits. SKIN: No rashes. Assessment and Plan Plan: -Sepsis secondary to perihilar pneumonia most probably my suspicion is low for urinary tract infection patient may have asymptomatic bacteriuria further antibiotic therapy as per infectious disease -COPD with acute exacerbation patient symptoms improved no wheezing today patient will be switched to oral steroids -Congestive chronic diastolic dysfunction with acute exacerbation -Moderate mitral regurgitation -Elevated liver enzymes secondary to hepatic congestion was stable liver enzymes -Coronary artery disease -Atrial fibrillation presently rate controlled -Type 2 diabetes mellitus -Hypertension -Hyperlipidemia -Generalized deconditioning. Patient Condition at Discharge: Serious Plan - Discharge Summary Discharge Rx Participant: No New Discharge Prescriptions: New Furosemide [Lasix] 60 mg PO BID@0900,1600 tab predniSONE 10 mg PO DAILY #30 tab Continue Ascorbic Acid [Vitamin C] 500 mg PO DAILY Sertraline [Zoloft] 100 mg PO DAILY Insulin Glargine,Hum.rec.anlog [Lantus Solostar] 25 unit SQ DAILY Insulin Lispro [humaLOG Kwikpen] See Protocol SQ BID Ferrous Gluconate 324 mg PO MOWEFR Atorvastatin [Lipitor] 10 mg PO DAILY Aspirin EC [Ecotrin Low Dose] 81 mg PO DAILY Cholecalciferol (Vitamin D3) [Vitamin D3] 2,000 unit PO DAILY Albuterol Inhaler [Ventolin Hfa Inhaler] 2 puff INHALATION RT-Q4H PRN PRN Reason: SOB/COPD Nystatin 100,000Unit/gm Cream [Mycostatin Cream] 1 applic TOPICAL BID PRN PRN Reason: Rash Ipratropium-Albuterol Nebulize [Duoneb 0.5 mg-3 mg/3 ml Soln] 3 ml INHALATION RT-QID Acetaminophen Tab [Tylenol] 650 mg PO Q6H PRN PRN Reason: PAIN/FEVER Metoprolol Succinate (ER) [Toprol XL] 25 mg PO DAILY #30 tab.er.24h Calcium Carbonate [Tums] 500 mg PO TID PRN PRN Reason: Gi Upset Bisacodyl [Dulcolax] 10 mg RECTAL ONCE PRN PRN Reason: Constipation Sodium Chloride [[place]] 2 spray EA NOSTRIL TID Sennosides/Docusate Sodium [Senna-S Laxative Tablet] 2 tab PO TUTHSA PRN PRN Reason: Constipation Omeprazole 20 mg PO DAILY Melatonin 3 mg PO HS Magnesium Oxide [Mag-Ox] 400 mg PO DAILY Hydroxychloroquine Sulfate [Plaquenil] 200 mg PO BID Allopurinol [Zyloprim] 300 mg PO DAILY HYDROcodone/APAP 5-325MG [[place] 5-325] 1 tab PO Q6HR PRN #12 tab PRN Reason: Pain Discontinued Furosemide [Lasix] 40 mg PO BID Diltiazem Oral [Cardizem*] 30 mg PO TID #90 tab Discharge Medication List Acetaminophen Tab [Tylenol] 650 mg PO Q6H PRN 06/02/18 [History] Albuterol Inhaler [Ventolin Hfa Inhaler] 2 puff INHALATION RT-Q4H PRN 06/02/18 [ History] Ascorbic Acid [Vitamin C] 500 mg PO DAILY 06/02/18 [History] Aspirin EC [Ecotrin Low Dose] 81 mg PO DAILY 06/02/18 [History] Atorvastatin [Lipitor] 10 mg PO DAILY 06/02/18 [History] Cholecalciferol (Vitamin D3) [Vitamin D3] 2,000 unit PO DAILY 06/02/18 [History] Ferrous Gluconate 324 mg PO MOWEFR 06/02/18 [History] Insulin Glargine,Hum.rec.anlog [Lantus Solostar] 25 unit SQ DAILY 06/02/18 [ History] Insulin Lispro [humaLOG Kwikpen] See Protocol SQ BID 06/02/18 [History] Ipratropium-Albuterol Nebulize [Duoneb 0.5 mg-3 mg/3 ml Soln] 3 ml INHALATION RT -QID 06/02/18 [History] Nystatin 100,000Unit/gm Cream [Mycostatin Cream] 1 applic TOPICAL BID PRN [History] Sertraline [Zoloft] 100 mg PO DAILY 06/02/18 [History] Metoprolol Succinate (ER) [Toprol XL] 25 mg PO DAILY #30 tab.er.24h 06/05/18 [Rx ] Allopurinol [Zyloprim] 300 mg PO DAILY 11/10/18 [History] Bisacodyl [Dulcolax] 10 mg RECTAL ONCE PRN 11/10/18 [History] Calcium Carbonate [Tums] 500 mg PO TID PRN 11/10/18 [History] Hydroxychloroquine Sulfate [Plaquenil] 200 mg PO BID 11/10/18 [History] Magnesium Oxide [Mag-Ox] 400 mg PO DAILY 11/10/18 [History] Melatonin 3 mg PO HS 11/10/18 [History] Omeprazole 20 mg PO DAILY 11/10/18 [History] Sennosides/Docusate Sodium [Senna-S Laxative Tablet] 2 tab PO TUTHSA PRN [History] Sodium Chloride [[place]] 2 spray EA NOSTRIL TID 11/10/18 [History] Furosemide [Lasix] 60 mg PO BID@0900,1600 tab 11/16/18 [Rx] HYDROcodone/APAP 5-325MG [[place] 5-325] 1 tab PO Q6HR PRN #12 tab 11/16/18 [Rx] predniSONE 10 mg PO DAILY #30 tab 11/16/18 [Rx] Follow up Appointment(s)/Referral(s): [facility], [NON-STAFF] - As Needed Nick Bailey MD [Primary Care Provider] - 1-2 days Activity/Diet/Wound Care/Special Instructions: [facility] Discharge Disposition: TRANSFER TO SNF/F
[2018-11-16 11:47] LABS: Glucose,Whole Blood 153 mg/dL (75-99)
--- NOTE | 2018-11-16 16:02 | P.PN ---
Subjective Progress Note Date: 11/16/18 Principal diagnosis: Acute hypoxic respiratory failure, suspect aspiration pneumonia This is a very pleasant 78-year-old female patient who follows with Dr. Bailey as her primary care physician. She has history of atrial fibrillation, coronary artery disease, diabetes Eric, gastroesophageal reflux disease, hyperlipidemia, hypertension, osteoarthritis, obstructive sleep apnea, chronic obstructive pulmonary disease on oxygen at 3 L at home. Previous smoking history. The patient recently had undergone a procedure for a nosebleed and a few days later developed increasing shortness of breath cough and congestion and was brought here to the emergency room yesterday for the same. As x-ray revealed a patchy right perihilar infiltrate and cardiomegaly. He did have O2 saturation of 81% on room air on presentation. We're consulted for the same. She is seen today on the selective care unit. She is awake and alert sitting up in a chair at the bedside. She is somewhat of a poor historian. She currently denies any worsening shortness of breath. She has a loose nonproductive cough. Taking O2 saturations in the upper 90s on 4 L/m per nasal cannula. She's been afebrile. Hemodynamically stable. Sputum cultures pending. White count 13.1. Hemoglobin 11.2. Creatinine 0.88. Influenza screen negative. Patient was reevaluated today on 11/12/2018, feeling much better, breathing a lot easier. Minimal cough, the cough is productive with yellow phlegm, denies any fever no chills no hemoptysis no chest pain. Denies any wheezing. Patient remains on 4 L nasal cannula, and her O2 saturation is in the 90s. CBC was noted to be normal. Electrolytes are normal BUN is 45 creatinine is 1.05. On 11/13/2018 patient seen in follow-up on selective care unit. She is on 2 L per nasal cannula her pulse ox is 100%, patient is afebrile. Lung sounds are diminished, no wheezes, no rhonchi. Urine culture was positive for group D enterococcus, sputum culture and blood culture showed no growth. Current antibiotics include Zithromax, and Rocephin, patient is on IV Lasix at 40 mg daily, repeat chest x-ray is pending. Patient is on IV steroids, belies bronchodilators, she states she is breathing easier. Today's labs have been reviewed, WBC is 7.7, hemoglobin is 11.0, elective was were within normal limits , BUN is 55 and creatinine 0.94. On 11/16/2018 patient seen in follow-up on selective care unit. He is calm and comfortable, in no acute distress, patient is on 2 L per nasal cannula, pulse ox of 95%, patient is afebrile, hemodynamically stable, still a little bronchospastic, with a few scattered rhonchi, but overall improving. Urine culture was positive for Enterococcus faecalis, and group D enterococcus. Blood and sputum cultures were negative. Today's labs have been reviewed, shows sodium of 139, potassium is 4.4, chloride is 99, CO2 38, BUN is 50, creatinine 0.81. Patient is on oral Lasix, Zithromax, nebulized bronchodilators , and oral prednisone. Oral clinically is improving, and states she will be discharged to ECF today Objective - Vital Signs Vital signs: Vital Signs Temp 97.4 F L 11/16/18 08:45 Pulse 68 11/16/18 15:47 Resp 18 11/16/18 08:45 BP 144/75 11/16/18 08:45 Pulse Ox 95 11/16/18 05:27 Intake & Output 11/15/18 11/16/18 11/16/18 18:59 06:59 18:59 Intake Total 240 20 800 Balance 240 20 800 Weight 95.3 kg Intake: IV 20 0.9 20 Oral 240 800 Other: Voiding Method Diaper Diaper Diaper Incontinent Incontinent Incontinent # Voids 1 - Exam Physical Exam: Revealed a 78-year-old female in no distress. Head: Atraumatic normocephalic. HEENT:[Neck is supple.] [No neck masses.] [No thyromegaly.] [No JVD.] PERRLA, EOMI, no icterus. Chest: [Breath sounds bilaterally are diminished, with a few scattered wheezes and a few rhonchi Cardiac Exam: [Normal S1 and S2, no S3 gallop, no murmur.] Abdomen: [Soft, nontender, no megaly, no rebound, no guarding, normal bowel sounds.] Extremities: [No clubbing, no edema, no cyanosis.] Neurological Exam: [No focal neurologic deficit. Psychiatric: Normal mood affect and mental status examination. - Labs CBC & Chem 7: 11/15/18 06:22 11/16/18 06:33 Labs: Abnormal Lab Results - Last 24 Hours (Table) 11/15/18 11/15/18 11/16/18 Range/Units 17:01 20:19 05:49 Carbon Dioxide (22-30) mmol/L BUN (7-17) mg/dL Glucose (74-99) mg/dL POC Glucose (mg/dL) 164 H 258 H 119 H (75-99) mg/dL 11/16/18 11/16/18 Range/Units 06:33 11:43 Carbon Dioxide 38 H (22-30) mmol/L BUN 58 H (7-17) mg/dL Glucose 118 H (74-99) mg/dL POC Glucose (mg/dL) 153 H (75-99) mg/dL Microbiology - Last 24 Hours (Table) 11/14/18 23:00 Urine Culture - Preliminary Urine,Voided Group D Enterococcus 11/10/18 15:00 Blood Culture - Preliminary Blood No Growth after 120 hours Assessment and Plan Plan: Assessment: #1 Acute hypoxic respiratory failure secondary to a right perihilar infiltrate suspect aspiration pneumonia. #2 Recent procedure for epistaxis. #3 History of atrial fibrillation, currently sinus rhythm. #4 Coronary artery disease. #5 Diabetes mellitus. #6 Gastroesophageal reflux disease. #7 Hypertension. #8 Hyperlipidemia. #9 Osteoarthritis. #10 Former smoker. #11 Anxiety/depression. #12 acute urinary tract infection with urine cultures positive for Enterococcus faecalis, and group D enterococcus Plan: Patient is breathing easier, less bronchospastic, less short of breath, is maintaining good oxygenation on 3 L per nasal cannula, no fever or chills, microbiology results were noted, ID service progress note was noted, and repeat urinalysis with culture was requested, clinically patient is completely asymptomatic, no fever or chills. Sputum blood culture are negative thus far. She has been diuresed, and transitioned over to oral Lasix. She is being discharged to [facility] today. We'll follow with Dr. Ferraro in one week in the office I performed a history & physical examination of the patient and discussed their management with my nurse practitioner, Sudha Perdomo. I reviewed the nurse practitioner's note and agree with the documented findings and plan of care. Lung sounds are positive for diminished breath sounds, with a few wheezes. The findings and the impression was discussed with the patient. I attest to the documentation by the nurse practitioner. Time with Patient: Less than 30
[2018-11-16 17:06] LABS: Glucose,Whole Blood 177 mg/dL (75-99)
[2018-11-16] MEDS: CHOLESTYRAMINE (WITH SUGAR) 4 GM PACKET PO SCH (18:14)
[2018-11-16] MEDS: SODIUM CHLORIDE 0.9% 1,000 ML IV SCH (19:34)
[2018-11-16 20:16] LABS: Glucose,Whole Blood 276 mg/dL (75-99)
[2018-11-16] MEDS: MELATONIN 3 MG TABLET PO SCH (20:20)
--- NOTE | 2018-11-16 23:31 | PN ---
PROGRESS NOTE DATE OF SERVICE: 11/16/2018. REASON FOR FOLLOW UP: Positive urine culture, diarrhea. INTERVAL HISTORY: The patient is currently afebrile. She has been breathing comfortably. Denies having any chest pain, chills, or cough. The patient denies any urinary symptoms, however, has developed diarrhea with multiple loose stools today. PHYSICAL EXAMINATION: Blood pressure 145/65 with a pulse of 66, temperature of 98.7, she is 92% on room air. GENERAL DESCRIPTION: An elderly female up in the chair in no distress. RESPIRATORY SYSTEM: Unlabored breathing with decreased breath sounds. No wheeze. HEART: S1, S2. Regular rate and rhythm. ABDOMEN: Soft, no tenderness. LABS: BUN of 58, creatinine is 0.81. Repeat UA was requested. DIAGNOSTIC IMPRESSION AND PLAN: 1. Patient with a positive urine culture with enterococcus faecium urinary tract infection. UA positive pointing towards possible contamination, no need for any antibiotic therapy for the same. 2. The patient has now developed diarrhea with concern for possible C difficile. Stool for C difficile has been requested. Will add Questran for symptomatic relief. Continue supportive care. MMODL / IJN: [id number] /
[2018-11-17] MEDS: IPRATROPIUM-ALBUTEROL 3 ML NEB INHALATION SCH ×3 (03:35→11:36)
[2018-11-17 06:13] VITALS: BP 115/74; RESP 16; TEMP 96.1
[2018-11-17 07:26] LABS: Glucose,Whole Blood 175 mg/dL (75-99)
[2018-11-17] MEDS: CHOLESTYRAMINE (WITH SUGAR) 4 GM PACKET PO SCH (08:47)
[2018-11-17] MEDS: HYDROXYCHLOROQUINE SULFATE 200 MG TAB PO SCH (08:47)
[2018-11-17] MEDS: ALLOPURINOL 300 MG TAB PO SCH (08:47)
[2018-11-17] MEDS: ASPIRIN 81 MG PO SCH (08:48)
[2018-11-17] MEDS: ASCORBIC ACID 500 MG TAB PO SCH (08:48)
[2018-11-17] MEDS: PANTOPRAZOLE 40 MG TABLET PO SCH (08:48)
[2018-11-17] MEDS: SERTRALINE 100 MG TAB PO SCH (08:48)
[2018-11-17] MEDS: predniSONE 20 MG TAB PO SCH (08:48)
[2018-11-17] MEDS: INSULIN ASPART 100 UNIT/ML 1 ML 10 ML VIAL SQ SCH ×2 (08:48→12:43)
[2018-11-17] MEDS: AZITHROMYCIN 500 MG TAB PO SCH (08:48)
[2018-11-17] MEDS: MAGNESIUM OXIDE 400 MG TAB PO SCH (08:52)
[2018-11-17] MEDS: METOPROLOL SUCCINATE (ER) 25 MG TAB.ER.24H PO SCH (08:53)
[2018-11-17] MEDS: HEPARIN SODIUM,PORCINE 5,000 UNIT/ML 1 ML VIAL SQ SCH (08:53)
[2018-11-17] MEDS: CHOLECALCIFEROL 1,000 UNIT TAB PO SCH (08:53)
[2018-11-17] MEDS: FUROSEMIDE 20 MG TAB PO SCH (08:53)
[2018-11-17 08:57] VITALS: PULSE 64
[2018-11-17] MEDS: INSULIN DETEMIR 100 UNIT/ML 10 ML VIAL SQ SCH (10:13)
[2018-11-17 11:17] LABS: Glucose,Whole Blood 177 mg/dL (75-99)
--- NOTE | 2018-11-17 15:35 | PN ---
PROGRESS NOTE DATE OF SERVICE: 11/17/2018. REASON FOR FOLLOWUP: 1. Positive urine culture. 2. Diarrhea. INTERVAL HISTORY: The patient was seen on rounds this morning. The patient has been afebrile. The patient is feeling better. Her diarrhea has improved. Breathing has improved. No chest pain. Occasional cough. No abdominal pain. PHYSICAL EXAMINATION: Blood pressure 115/74, pulse of 64, temperature 96.1. She is 97% on 3 L nasal cannula. General description is an elderly female up in the bed in no distress. RESPIRATORY SYSTEM: Unlabored breathing. Clear to auscultation anteriorly. HEART: S1, S2. Regular rate and rhythm. ABDOMEN: Soft. No tenderness. LABS: No new labs have been obtained. Stool for C difficile was negative. DIAGNOSTIC IMPRESSION AND PLAN: 1. Patient with a positive urine culture with Enterococcus faecalis, more likely contamination, as UA was not positive. Patient had no symptoms. No antibiotic. 2. Diarrhea. Stool for Clostridium difficile negative. She will be treated with symptomatic treatment with oral Questran. Advised to increase her yogurt intake. Continue supportive care. MMODL / IJN: [id number] /
== END 2018-11-17 13:25 | DRG 871 ==
LOC: EC 14:46 → 3SCARD 18:05 → 4MS4W 11-16 22:45
PROVIDERS: ADMIT Internal Medicine; ATTEND Internal Medicine
DX: A41.9 Sepsis, unspecified organism (principal); I50.33 Acute on chronic diastolic (congestive) heart failure; J96.01 Acute respiratory failure with hypoxia; J15.6 Pneumonia due to other Gram-negative bacteria; J69.0 Pneumonitis due to inhalation of food and vomit; J44.1 Chronic obstructive pulmonary disease with (acute) exacerbation; N39.0 Urinary tract infection, site not specified; J44.0 Chronic obstructive pulmonary disease with (acute) lower respiratory infection; I27.21 Secondary pulmonary arterial hypertension; E66.01 Morbid (severe) obesity due to excess calories; I11.0 Hypertensive heart disease with heart failure; K76.1 Chronic passive congestion of liver; I48.0 Paroxysmal atrial fibrillation; B95.2 Enterococcus as the cause of diseases classified elsewhere; E11.9 Type 2 diabetes mellitus without complications; I25.10 Atherosclerotic heart disease of native coronary artery without angina pectoris; R62.7 Adult failure to thrive; I08.0 Rheumatic disorders of both mitral and aortic valves; G47.33 Obstructive sleep apnea (adult) (pediatric); E78.5 Hyperlipidemia, unspecified; R19.7 Diarrhea, unspecified; T50.1X5A Adverse effect of loop [high-ceiling] diuretics, initial encounter; F32.9 Major depressive disorder, single episode, unspecified; F41.9 Anxiety disorder, unspecified; K21.9 Gastro-esophageal reflux disease without esophagitis; M19.90 Unspecified osteoarthritis, unspecified site; R32 Unspecified urinary incontinence; H91.90 Unspecified hearing loss, unspecified ear; Z99.81 Dependence on supplemental oxygen; Z79.82 Long term (current) use of aspirin; Z79.4 Long term (current) use of insulin; Z79.899 Other long term (current) drug therapy; Z68.35 Body mass index [BMI] 35.0-35.9, adult; Z71.3 Dietary counseling and surveillance; Z99.89 Dependence on other enabling machines and devices; Z87.01 Personal history of pneumonia (recurrent); Z96.653 Presence of artificial knee joint, bilateral; Z87.891 Personal history of nicotine dependence; Z98.42 Cataract extraction status, left eye; Z98.41 Cataract extraction status, right eye; Z96.1 Presence of intraocular lens; Z88.0 Allergy status to penicillin; Z88.1 Allergy status to other antibiotic agents; Z91.041 Radiographic dye allergy status; Z82.49 Family history of ischemic heart disease and other diseases of the circulatory system; Z81.8 Family history of other mental and behavioral disorders; Z84.2 Family history of other diseases of the genitourinary system
CPT/HCPCS: 36415; 71046; 80048; 80053; 81001; 82550; 82553; 83036; 83605; 83735; 83880; 84484; 85025; 85610; 85730; 87040; 87070; 87077; 87086; 87186; 87205; 87324; 87502; 93005; 93306; 94640; 94760; 96374; 99291

== ENCOUNTER 2018-12-22 17:23 | Inpatient (IN) | payer MEDICARE ==
[2018-12-22] MEDS ORDERED: DEXTROSE 5% IN WATER 250 ML with AMIODARONE 300 MG IV ONE (17:29)
[2018-12-22] MEDS ORDERED: DEXTROSE 5% IN WATER 100 ML BAG IV ONE (17:29)
[2018-12-22] MEDS ORDERED: AMIODARONE 50 MG/ML 9 ML VIAL IV ONE (17:29)
--- NOTE | 2018-12-22 17:40 | ED ---
General Adult HPI - General Chief complaint: Cardiac Arrest/CPR Stated complaint: Cardiac arrest Time Seen by Provider: 12/22/18 17:23 Source: EMS, RN notes reviewed Mode of arrival: EMS Limitations: physical limitation - History of Present Illness Initial comments: This is a 78-year-old female presents emergency Department after having a syncopal episode and having a cardiac arrest. According to EMS the patient had syncopal episode in the lobby at her assisted living facility. When the fire department got there there is a ED shocked her once and when they arrived the patient had a pulse but soon thereafter lost again and was in asystole in PEA they started CPR and gave some epinephrines she has been went back into V. tach and V. fib and received another shot. Patient's pulse came back and then shortly thereafter was lost again the found her to be in V. fib and shocked her one more time and on arrival they stated they had a pulse. Shortly thereafter we found her not to have a pulse and continued CPR. No further history is available at this time no family member or caregiver is with the patient. - Related Data Home Medications Medication Instructions Recorded Confirmed Acetaminophen Tab [Tylenol] 650 mg PO Q6H PRN 06/02/18 12/22/18 Albuterol Inhaler [Ventolin Hfa 2 puff INHALATION RT-Q4H PRN 06/02/18 12/22/18 Inhaler] Ascorbic Acid [Vitamin C] 500 mg PO DAILY 06/02/18 12/22/18 Aspirin EC [Ecotrin Low Dose] 81 mg PO DAILY 06/02/18 12/22/18 Atorvastatin [Lipitor] 10 mg PO DAILY 06/02/18 12/22/18 Cholecalciferol (Vitamin D3) 2,000 unit PO DAILY 06/02/18 12/22/18 [Vitamin D3] Ferrous Gluconate 324 mg PO MOWEFR 06/02/18 12/22/18 Ipratropium-Albuterol Nebulize 3 ml INHALATION RT-QID 06/02/18 12/22/18 [Duoneb 0.5 mg-3 mg/3 ml Soln] Nystatin 100,000Unit/gm Cream 1 applic TOPICAL BID PRN 06/02/18 12/22/18 [Mycostatin Cream] Sertraline [Zoloft] 100 mg PO DAILY 06/02/18 12/22/18 Allopurinol [Zyloprim] 300 mg PO DAILY 11/10/18 12/22/18 Bisacodyl [Dulcolax] 10 mg RECTAL ONCE PRN 11/10/18 12/22/18 Calcium Carbonate [Tums] 500 mg PO TID PRN 11/10/18 12/22/18 Hydroxychloroquine Sulfate 200 mg PO BID 11/10/18 12/22/18 [Plaquenil] Magnesium Oxide [Mag-Ox] 400 mg PO DAILY 11/10/18 12/22/18 Melatonin 3 mg PO HS 11/10/18 12/22/18 Omeprazole 20 mg PO DAILY 11/10/18 12/22/18 Sennosides/Docusate Sodium 2 tab PO TUTHSA PRN 11/10/18 12/22/18 [Senna-S Laxative Tablet] Sodium Chloride [[place]] 2 spray EA NOSTRIL TID 11/10/18 12/22/18 Amiodarone [Cordarone] 200 mg PO BID 12/22/18 12/22/18 Furosemide [Lasix] 20 mg PO BID@0900,1700 12/22/18 12/22/18 HYDROcodone/APAP 5-325MG [[place] 1 tab PO DAILY PRN 12/22/18 12/22/18 5-325] INSULIN LISPRO (humaLOG) [humaLOG] 5 unit SQ AC-TID 12/22/18 12/22/18 Menthol [Biofreeze] 1 applic TOPICAL TID PRN 12/22/18 12/22/18 Previous Rx's Medication Instructions Recorded Insulin Glargine,Hum.rec.anlog 18 unit SQ DAILY #0 11/30/18 [Lantus Solostar] Metoprolol Succinate (ER) [Toprol 12.5 mg PO DAILY #30 tab.er.24h 11/30/18 XL] Allergies Allergy/AdvReac Type Severity Reaction Status Date / Time Iodinated Contrast- Oral and Allergy Unknown Verified 12/22/18 17:34 IV Dye Penicillins Allergy Unknown Verified 12/22/18 17:34 vancomycin Allergy Unknown Verified 12/22/18 17:34 Review of Systems ROS Statement: Those systems with pertinent positive or pertinent negative responses have been documented in the HPI. ROS Other: All systems not noted in ROS Statement are negative. Past Medical History Past Medical History: Atrial Fibrillation, Coronary Artery Disease (CAD), Diabetes Mellitus, GERD/Reflux, Hyperlipidemia, Hypertension, Osteoarthritis (OA ), Pneumonia, Sleep Apnea/CPAP/BIPAP Additional Past Medical History / Comment(s): Pt recently admitted to [facility] on 11/10/18 with sepsis/pne, exacerbation COPD. Other HX: Past home O2 at 3L/NC -pt states she has weaned herself off oxygen, pulmonary Htn, cardiac valve insufficiencies, past L leg weakness, L lower leg/foot is reddened at this time , IDDM type II, possible MS per EKG in past, JAYME but no longer wears Cpap, UTI, weakness. History of Any Multi-Drug Resistant Organisms: None Reported Past Surgical History: Orthopedic Surgery, Tonsillectomy Additional Past Surgical History / Comment(s): kerwin cataracts removed has lens implants, kerwin knee replacments Past Anesthesia/Blood Transfusion Reactions: Motion Sickness Additional Past Anesthesia/Blood Transfusion Reaction / Comment(s): clausterphobia Past Psychological History: Anxiety, Depression Smoking Status: Former smoker - Past Family History Father Family Medical History: Coronary Artery Disease (CAD) Additional Family Medical History / Comment(s): enlarged heart Mother Family Medical History: Dementia, Hypertension Additional Family Medical History / Comment(s): hysterectomy-d/t benign tumor General Exam - General Exam Comments Initial Comments: GENERAL: Patient is well-developed and well-nourished. She is completely unresponsive ENT: No signs of obvious trauma of the head neck EYES: The sclera were anicteric and conjunctiva were pink and moist. Extraocular movements were intact and pupils were equal round and reactive to light. Eyelids were unremarkable. PULMONARY: Patient has been intubated and is being bagged patient has better breath sounds on the right than the left CARDIOVASCULAR: Patient has no pulses at this time ABDOMEN: Soft and nontender with normal bowel sounds. SKIN: Skin is clear with no lesions or rashes and otherwise unremarkable. NEUROLOGIC: Patient is not alert or oriented. MUSCULOSKELETAL: No obvious signs of trauma LYMPHATICS: No significant lymphadenopathy is noted PSYCHIATRIC: Unable to assess Limitations: physical limitation Course Vital Signs 12/22/18 12/22/18 12/22/18 17:23 17:26 17:30 Pulse Rate 0 L 100 Respiratory 0 L Rate Blood Pressure 181/113 87/39 O2 Sat by Pulse 0 L 99 Oximetry 12/22/18 12/22/18 12/22/18 17:41 17:45 17:54 Pulse Rate 62 59 L Respiratory Rate Blood Pressure 87/39 77/22 160/72 O2 Sat by Pulse Oximetry 12/22/18 12/22/18 12/22/18 18:00 18:02 18:08 Pulse Rate 60 Respiratory 110 H Rate Blood Pressure 119/63 97/24 O2 Sat by Pulse Oximetry 12/22/18 12/22/18 12/22/18 18:14 18:45 18:50 Pulse Rate 56 L 58 L 59 L Respiratory 20 13 Rate Blood Pressure 99/55 68/24 62/26 O2 Sat by Pulse 95 95 Oximetry 12/22/18 12/22/18 12/22/18 18:55 19:00 19:05 Pulse Rate 59 L 59 L 60 Respiratory 20 17 19 Rate Blood Pressure 62/52 68/22 70/31 O2 Sat by Pulse 95 95 95 Oximetry 12/22/18 12/22/18 12/22/18 19:10 19:15 19:20 Pulse Rate 59 L 59 L 59 L Respiratory 17 18 10 L Rate Blood Pressure 62/37 62/37 58/44 O2 Sat by Pulse 95 96 97 Oximetry 12/22/18 12/22/18 12/22/18 19:25 19:30 19:35 Pulse Rate 59 L 59 L 61 Respiratory 17 19 22 Rate Blood Pressure 58/44 58/44 86/28 O2 Sat by Pulse 98 98 98 Oximetry 12/22/18 12/22/18 12/22/18 19:40 19:45 19:50 Pulse Rate 61 61 62 Respiratory 21 18 16 Rate Blood Pressure 86/28 86/28 77/34 O2 Sat by Pulse 98 99 99 Oximetry 12/22/18 19:55 Pulse Rate 61 Respiratory 20 Rate Blood Pressure 77/34 O2 Sat by Pulse 99 Oximetry Medical Decision Making - Medical Decision Making When patient arrived she did not have a pulse with began CPR gave a amp of epinephrine as well as 1 amp of bicarb. Patient's pulse returned shortly thereafter patient was then given 300 mg bolus of amiodarone. EKG shows sinus rhythm at 95 bpm [place] interval is 228 QRSs 152 QT interval 390 QTC is 490. Patient has a left bundle branch block. Patient coded another time in the emergency department and no further CPR was done because his son was contacted he stated that he did not want any further CPR. Patient's son also refused to have any central lines placed or any pressors given. Chest x-ray shows congestive heart failure. I spoke with Dr. Jovany Manzo agreed to admit the patient admitted patient wrote admitting orders. Sr. the patient arrives to family made the decision to have the patient extubated and keep the patient Comfort Care. - Lab Data Result diagrams: 12/22/18 19:02 12/22/18 19:02 Lab Results 12/22/18 12/22/18 12/22/18 Range/Units 17:43 18:01 19:02 WBC (3.8-10.6) k/uL RBC (3.80-5.40) m/uL Hgb (11.4-16.0) gm/dL Hct (34.0-46.0) % MCV (80.0-100.0) fL MCH (25.0-35.0) pg MCHC (31.0-37.0) g/dL RDW (11.5-15.5) % Plt Count (150-450) k/uL Neutrophils % % Lymphocytes % % Monocytes % % Eosinophils % % Basophils % % Neutrophils # (1.3-7.7) k/uL Lymphocytes # (1.0-4.8) k/uL Monocytes # (0-1.0) k/uL Eosinophils # (0-0.7) k/uL Basophils # (0-0.2) k/uL Hypochromasia Anisocytosis Macrocytosis PT (9.0-12.0) sec INR (<1.2) APTT (22.0-30.0) sec Sample Site r rad ABG pH 7.20 L (7.35-7.45) ABG pCO2 44 (35-45) mmHg ABG pO2 351 H (83-108) mmHg ABG HCO3 17 L (21-25) mmol/L ABG Total CO2 19 (19-24) mmol/L ABG O2 Saturation 100.0 H (94-97) % ABG Base Excess -10.5 mmol/L [place] Test Yes FiO2 100 % Sodium (137-145) mmol/L Potassium (3.5-5.1) mmol/L Chloride (98-107) mmol/L Carbon Dioxide (22-30) mmol/L Anion Gap mmol/L BUN (7-17) mg/dL Creatinine (0.52-1.04) mg/dL Est GFR (CKD-EPI)AfAm (>60 ml/min/1.73 sqM) Est GFR (CKD-EPI)NonAf (>60 ml/min/1.73 sqM) Glucose (74-99) mg/dL POC Glucose (mg/dL) 226 H (75-99) mg/dL POC Glu Heel Stainer ID Zahra Hedrick Calcium (8.4-10.2) mg/dL Magnesium (1.6-2.3) mg/dL Total Bilirubin (0.2-1.3) mg/dL AST (14-36) U/L ALT (9-52) U/L Alkaline Phosphatase (38-126) U/L Total Creatine Kinase 152 H (30-135) U/L CK-MB (CK-2) 4.6 H (0.0-2.4) ng/mL CK-MB (CK-2) Rel Index 3.0 Troponin I 0.054 H* (0.000-0.034) ng/mL NT-Pro-B Natriuret Pep pg/mL Total Protein (6.3-8.2) g/dL Albumin (3.5-5.0) g/dL 12/22/18 12/22/18 12/22/18 Range/Units 19:02 19:02 19:02 WBC 22.3 H (3.8-10.6) k/uL RBC 3.30 L (3.80-5.40) m/uL Hgb 10.2 L (11.4-16.0) gm/dL Hct 31.9 L (34.0-46.0) % MCV 96.6 D (80.0-100.0) fL MCH 31.0 (25.0-35.0) pg MCHC 32.1 (31.0-37.0) g/dL RDW 16.1 H (11.5-15.5) % Plt Count 342 (150-450) k/uL Neutrophils % 90 % Lymphocytes % 7 % Monocytes % 2 % Eosinophils % 1 % Basophils % 1 % Neutrophils # 20.1 H (1.3-7.7) k/uL Lymphocytes # 1.5 (1.0-4.8) k/uL Monocytes # 0.4 (0-1.0) k/uL Eosinophils # 0.1 (0-0.7) k/uL Basophils # 0.1 (0-0.2) k/uL Hypochromasia Marked Anisocytosis Slight Macrocytosis Slight PT (9.0-12.0) sec INR (<1.2) APTT (22.0-30.0) sec Sample Site ABG pH (7.35-7.45) ABG pCO2 (35-45) mmHg ABG pO2 (83-108) mmHg ABG HCO3 (21-25) mmol/L ABG Total CO2 (19-24) mmol/L ABG O2 Saturation (94-97) % ABG Base Excess mmol/L [place] Test FiO2 % Sodium 139 (137-145) mmol/L Potassium 5.5 H (3.5-5.1) mmol/L Chloride 108 H (98-107) mmol/L Carbon Dioxide 21 L (22-30) mmol/L Anion Gap 10 mmol/L BUN 35 H (7-17) mg/dL Creatinine 1.40 H (0.52-1.04) mg/dL Est GFR (CKD-EPI)AfAm 42 (>60 ml/min/1.73 sqM) Est GFR (CKD-EPI)NonAf 36 (>60 ml/min/1.73 sqM) Glucose 174 H (74-99) mg/dL POC Glucose (mg/dL) (75-99) mg/dL POC Glu Heel Stainer ID Calcium 8.1 L (8.4-10.2) mg/dL Magnesium 1.8 (1.6-2.3) mg/dL Total Bilirubin 0.8 (0.2-1.3) mg/dL AST 129 H (14-36) U/L ALT 92 H (9-52) U/L Alkaline Phosphatase 152 H (38-126) U/L Total Creatine Kinase (30-135) U/L CK-MB (CK-2) (0.0-2.4) ng/mL CK-MB (CK-2) Rel Index Troponin I (0.000-0.034) ng/mL NT-Pro-B Natriuret Pep 63987 pg/mL Total Protein 5.1 L (6.3-8.2) g/dL Albumin 2.7 L (3.5-5.0) g/dL 12/22/18 Range/Units 19:02 WBC (3.8-10.6) k/uL RBC (3.80-5.40) m/uL Hgb (11.4-16.0) gm/dL Hct (34.0-46.0) % MCV (80.0-100.0) fL MCH (25.0-35.0) pg MCHC (31.0-37.0) g/dL RDW (11.5-15.5) % Plt Count (150-450) k/uL Neutrophils % % Lymphocytes % % Monocytes % % Eosinophils % % Basophils % % Neutrophils # (1.3-7.7) k/uL Lymphocytes # (1.0-4.8) k/uL Monocytes # (0-1.0) k/uL Eosinophils # (0-0.7) k/uL Basophils # (0-0.2) k/uL Hypochromasia Anisocytosis Macrocytosis PT 11.3 (9.0-12.0) sec INR 1.1 (<1.2) APTT 18.8 L (22.0-30.0) sec Sample Site ABG pH (7.35-7.45) ABG pCO2 (35-45) mmHg ABG pO2 (83-108) mmHg ABG HCO3 (21-25) mmol/L ABG Total CO2 (19-24) mmol/L ABG O2 Saturation (94-97) % ABG Base Excess mmol/L [place] Test FiO2 % Sodium (137-145) mmol/L Potassium (3.5-5.1) mmol/L Chloride (98-107) mmol/L Carbon Dioxide (22-30) mmol/L Anion Gap mmol/L BUN (7-17) mg/dL Creatinine (0.52-1.04) mg/dL Est GFR (CKD-EPI)AfAm (>60 ml/min/1.73 sqM) Est GFR (CKD-EPI)NonAf (>60 ml/min/1.73 sqM) Glucose (74-99) mg/dL POC Glucose (mg/dL) (75-99) mg/dL POC Glu Heel Stainer ID Calcium (8.4-10.2) mg/dL Magnesium (1.6-2.3) mg/dL Total Bilirubin (0.2-1.3) mg/dL AST (14-36) U/L ALT (9-52) U/L Alkaline Phosphatase (38-126) U/L Total Creatine Kinase (30-135) U/L CK-MB (CK-2) (0.0-2.4) ng/mL CK-MB (CK-2) Rel Index Troponin I (0.000-0.034) ng/mL NT-Pro-B Natriuret Pep pg/mL Total Protein (6.3-8.2) g/dL Albumin (3.5-5.0) g/dL Disposition Clinical Impression: Cardiac arrest, Pulmonary edema, Hypotension, Ventricular tachycardia Disposition: ADMITTED IP TO THIS HOSP Referrals: Nick Bailey MD [Primary Care Provider] - 1-2 days Time of Disposition: 20:57
[2018-12-22] MEDS ORDERED: DEXTROSE 5% IN WATER 100 ML with AMIODARONE 150 MG IV ONE (17:45)
[2018-12-22 17:53] LABS: Glucose,Whole Blood 226 mg/dL (75-99)
[2018-12-22] MEDS ORDERED: AMIODARONE 360 MG in DEXTROSE 5% IN WATER 200 ML IV ONE ×2 (18:00)
[2018-12-22 18:04] LABS: ABG Base Excess -10.5 mmol/L; ABG HCO3 17 mmol/L (21-25); ABG PCO2 44 mmHg (35-45); ABG PO2 351 mmHg (83-108); ABG TCO2 19 mmol/L (19-24)
--- NOTE | 2018-12-22 18:23 | XR ---
EXAMINATION TYPE: XR chest 1V portable DATE OF EXAM: 12/22/2018 COMPARISON: 11/27/2018 HISTORY: Cardiac arrest TECHNIQUE: Single frontal view of the chest is obtained. FINDINGS: Endotracheal tube is 2.5 cm from the tripp. Nasogastric tube appears to have the tip in t he distal esophagus and is not in the stomach. Heart is enlarged. There is pulmonary vascular congest ion. IMPRESSION: There is probably congestive heart failure that is increased compared to last exam. Endo tracheal tube is in fairly good position. Nasogastric tube in the distal esophagus.
[2018-12-22 19:15] LABS: Anisocytosis Slight; Basophils # (A) 0.1 k/uL (0-0.2); Basophils % (A) 1 %; Eosinophils # (A) 0.1 k/uL (0-0.7); Eosinophils % (A) 1 %; HCT 31.9 % (34.0-46.0); HGB 10.2 gm/dL (11.4-16.0); Hypochromasia Marked; Lymphocytes # (A) 1.5 k/uL (1.0-4.8); Lymphocytes % (A) 7 %; MCHC 32.1 g/dL (31.0-37.0); Macrocytosis Slight; Mean Platelet Volume 6.7; Monocytes # (A) 0.4 k/uL (0-1.0); Monocytes % (A) 2 %; Neutrophils # (A) 20.1 k/uL (1.3-7.7); Neutrophils % (A) 90 %; Platelet Count 342 k/uL (150-450); RDW 16.1 % (11.5-15.5); WBC 22.3 k/uL (3.8-10.6)
[2018-12-22 19:18] LABS: MCV 96.6 fL (80.0-100.0)
[2018-12-22 19:29] LABS: Albumin 2.7 g/dL (3.5-5.0); Calcium 8.1 mg/dL (8.4-10.2); Magnesium 1.8 mg/dL (1.6-2.3); Potassium 5.5 mmol/L (3.5-5.1); Total Bilirubin 0.8 mg/dL (0.2-1.3); Total Protein 5.1 g/dL (6.3-8.2)
[2018-12-22 19:44] LABS: Creatine Kinase MB 4.6 ng/mL (0.0-2.4)
[2018-12-22 19:45] LABS: INR 1.1 (<1.2); Prothrombin Time 11.3 sec (9.0-12.0); Troponin I 0.054 ng/mL (0.000-0.034)
[2018-12-22 19:54] LABS: Partial Thromboplastin Time 18.8 sec (22.0-30.0)
[2018-12-22] MEDS ORDERED: LORazepam 2 MG/ML INJ IV STA (21:38)
[2018-12-22] MEDS ORDERED: MORPHINE SULFATE 4 MG/ML SYRINGE IVP STA (21:39)
[2018-12-22] MEDS ORDERED: MORPHINE SULFATE 4 MG/ML SYRINGE IVP PRN (21:39)
--- NOTE | 2018-12-22 22:45 | HP ---
HISTORY AND PHYSICAL DATE OF SERVICE: 12/22/2018 CHIEF COMPLAINT: Cardiac arrest. HISTORY OF PRESENT ILLNESS: This 78-year-old woman with a past medical history of multiple medical problems, including atrial fibrillation, history of coronary artery disease, history of diabetes mellitus, GERD, hypertension, hyperlipidemia, history of CHF, history of COPD, history of mitral regurgitation, being followed by Dr. Bailey in the office setting, apparently had a syncopal episode and had cardiac arrest. The patient had a syncopal episode in the lobby of her assisted-living facility. The patient was out for an unknown length of time and the fire department had a DC shock performed. The patient had multiple arrhythmias, including asystole pulseless electrical activity, ventricular fibrillation and ventricular tachycardia. After several attempts in the ER also, the patient came to normal sinus rhythm. The blood pressure was low, but the family decided not to offer any vasopressors. The patient was intubated. The patient is mechanically ventilated. The patient is being closely monitored at this time. Currently the patient is unresponsive because of mechanical ventilation and other issues. Most of the history is taken from my discussion with the ER physician, review of the chart, discussion with staff as well as discussion with the son at the bedside. The patient is currently NO CODE and NO RE-INTUBATION. The family is also thinking about hospice/comfort measures at this time. PAST MEDICAL HISTORY: 1. History of atrial fibrillation. 2. CAD. 3. Diabetes mellitus, type 2. 4. GERD. 5. Hypertension. 6. Hyperlipidemia. 7. History of DJD. HOME MEDICATIONS: Include: 1. Senna 2 tablets b.i.d. p.r.n. 2. Albuterol 2 puffs q.4 p.r.n.. 3. Biofreeze 1 application daily. 4. Flushing 5 mg daily p.r.n. 5. Tums 500 mg daily. 6. Dulcolax 10 mg daily p.r.n. 7. Tylenol 650 q.6 p.r.n. 8. [place] 2 sprays daily. 9. Zoloft 100 mg daily. 10.Omeprazole 20 mg daily. 11.Vitamin D3 2000 daily. 12.Vitamin C 500 mg p.o. daily. 13.Mycostatin 1 application b.i.d. p.r.n. 14.Toprol-XL 12.5 mg daily. 15.Melatonin 3 mg at bedtime. 16.Magnesium oxide 400 mg daily. 17.DuoNeb q.i.d. 18.Lantus 18 units daily. 19.Humalog 5 units before meals t.i.d. 20.Plaquenil 200 mg p.o. b.i.d. 21.Lasix 20 mg p.o. b.i.d. 22.Ferrous sulfate 320 mg p.o. Tuesday, Tuesday, Tuesday. 23.Lipitor 10 mg p.o. daily. 24.Ecotrin 81 mg p.o. daily. 25.Cordarone 200 mg p.o. b.i.d. 26.Zyloprim 300 mg p.o. daily. ALLERGIES: 1. IODINATED CONTRAST DYES. 2. PENICILLIN. 3. VANCOMYCIN. Family history, social history, review of systems could not be taken because the patient is mechanically ventilated and sedated. There is history of coronary artery disease and cardiomegaly in the family. PHYSICAL EXAMINATION: Patient is on mechanical ventilation, pulse 62, blood pressure 77/34, respiration 20, temperature normal, pulse ox 100% on mechanical vent. Settings are noted. HEENT: Conjunctivae normal. Oral mucosa moist. NECK: No jugular venous distention. No carotid bruit. No lymph node enlargement. CARDIOVASCULAR SYSTEM: S1, S2 muffled. No S3. No S4. RESPIRATORY SYSTEM: Breath sounds diminished at the bases. Bilateral scattered rhonchi and crackles. ABDOMEN: Soft, non-tender. LEGS: No edema. No swelling. NERVOUS SYSTEM: Patient is mechanically ventilated and sedated. SKIN: No ulcer, rash, bleeding. JOINTS: No active deforming arthropathy. LABS: WBC 22.3, hemoglobin 10.2. ABG shows pH of 7.2, sodium 139, potassium 5.5, creatinine 1.40. Troponin 0.054. AST, ALT noted. ASSESSMENT: 1. Acute cardiac arrest, possibly secondary to coronary atherosclerosis and myocardial ischemia with acute hypoxic respiratory failure, on mechanical ventilation. 2. Severe hypotension with possibly cardiogenic shock. 3. History of atrial fibrillation. 4. Increased AST, ALT, possibly hepatitis. 5. Increased creatinine with acute renal failure. 6. Increased white count, possibly reactive. 7. History of mitral regurgitation. 8. History of coronary artery disease. 9. History of diabetes mellitus, type 2. 10.History of gastroesophageal reflux disease. 11.History of hypertension. 12.Hyperlipidemia. 13.History of degenerative joint disease. 14.History of pneumonia. 15.History of sleep apnea. 16.History of recent pneumonia and COPD, acute exacerbation. 17.Chronic hypoxic respiratory failure. 18.Anxiety, depression. 19.Remote history of nicotine dependence. 20.NO CODE, NO CPR. RECOMMENDATIONS AND DISCUSSION: In this 78-year-old woman who presented with multiple medical issues, at this time I recommend to continue the current medication. As mentioned earlier, the prognosis is extremely guarded with possible anoxic brain damage as well because of prolonged CPR. Please refer to the ER notes and EMS notes for further details. I discussed the case at length with the son and other members of the family at the bedside. At this time as mentioned earlier patient is NO CODE, NO CPR, NO VENT. They are also waiting for another family member to arrive, and after that they will make a decision regarding comfort measures. In that case, I would recommend extubation and administer morphine either intravenously or as a drip for comfort measures with p.r.n. Ativan and continue to monitor. The overall prognosis is extremely guarded because of above- mentioned multiple medical issues. Further recommendations to follow. A copy of this dictation is being forwarded to Dr. Bailey, who is the primary physician. TIFF / CHARLOTTEN: [id number] / KAUSHAL
[2018-12-22 23:02] VITALS: BMI 42.0
[2018-12-22 23:18] VITALS: BP 102/52; PULSE 67; RESP 28; TEMP 94.4
[2018-12-22] MEDS ORDERED: LORazepam 2 MG/ML INJ IV PRN (23:30)
[2018-12-22] MEDS ORDERED: ATROPINE OPHTH SOLN 1% 5ML BTL SUBLINGUAL PRN (23:31)
[2018-12-22] MEDS ORDERED: SCOPOLAMINE 1.5MG/72HR PATCH TRANSDERM SCH (23:45)
--- NOTE | 2018-12-23 15:43 | DS ---
DISCHARGE SUMMARY PRIMARY CAUSE OF : Cardiac arrest secondary to coronary atherosclerosis and possible myocardial ischemia. OTHER DIAGNOSES: 1. Acute hypoxic respiratory failure on mechanical ventilation. 2. Prolonged CPR. 3. Severe hypotension with possible cardiogenic shock. 4. History of atrial fibrillation. 5. Increased AST/ALT possibly hepatitis. 6. Increased creatinine with acute renal failure. 7. Increased WBC possibly reactive. 8. History of mitral regurgitation. 9. History of coronary artery disease. 10.History of diabetes type 2. 11.History gastroesophageal reflux disease. 12.Hypertension. 13.Hyperlipidemia. 14.History of degenerative joint disease. 15.History of pneumonia. 16.History of obstructive sleep apnea. 17.History of recent pneumonia. 18.Chronic obstructive pulmonary disease. 19.Chronic hypoxic respiratory failure. 20.Anxiety/Depression. 21.Remote history of nicotine dependence. 22.NO CODE, NO CPR, NO VENT. HISTORY OF PRESENT ILLNESS: This 78-year-old woman with a past medical history of multiple medical problems as mentioned earlier, being followed by Dr. Bailey in the outpatient setting was admitted with history of cardiac arrest. The patient had on field resuscitation by the EMS which was prolonged. The patient had multiple rhythms. Please refer to the ER notes and EMS notes for further details. The patient finally regained rhythm and was mechanically ventilated for a brief period of time, but however the case was discussed with family at length and the family opted for hospice care because of the extremely grave prognosis and multiple other complex medical issues. Subsequently patient because of the above mentioned multiple complex medical issues and throughout the hospital stay. Please refer to multiple progress notes and staff notes for further details. MMODL / IJN: [id number] / KAUSHAL
--- NOTE | 2018-12-25 15:16 | CDI ---
Documentation Clarification Form Date: 12/25/18 From: Roxanna Dejan Lennie Eric, Director [employer] Hours-8:30 am & 5 pm MChristina Admit Date: 12/22/2018 8:57:00 PM Patient Name: Rehana Ramirez Visit Number: [id number] Discharge Date: 12/23/2018 1:45:00 PM ATTENTION: The Clinical Documentation Specialists (CDI) and [facility] Coding Staff appreciate your assistance in clarifying documentation. Please respond to the clarification below the line at the bottom and electronically sign. The CDI & [facility] Coding staff will review the response and follow-up if needed. Please note: Queries are made part of the Legal Health Record. If you have any questions, please contact the author of this message via ITS. Dr. Valery Manzo The patient presented with the following cardiac arrest secondary to coronary atherosclerosis and possible myocardial ischemia. History/Risk Factors: asytole,PEA, vent fib/tachycardia, CPR, ac on chr hypoxic respiratory failure Lab findings: Troponin I-0.054; CK-MB CK2 - 4.6 Radiology findings: CHF Treatment: In your professional opinion, can you please clarify myocardial ischemia? Acute, without myocardial infarction Silent Other, please specify Unable to determine Unable to determine MTDD
== END 2018-12-23 13:45 | disposition expired | DRG 302 ==
LOC: EC 17:23 → 3NMEDONC 20:57
PROVIDERS: ADMIT Hospitalist; ATTEND Hospitalist
PROC: 0BH17EZ Insertion of Endotracheal Airway into Trachea, Via Natural or Artificial Opening (ICD-10-PCS; principal; 2018-12-22)
PROC: 5A1935Z Respiratory Ventilation, Less than 24 Consecutive Hours (ICD-10-PCS; 2018-12-22)
PROC: 5A12012 Performance of Cardiac Output, Single, Manual (ICD-10-PCS; 2018-12-22)
DX: I25.10 Atherosclerotic heart disease of native coronary artery without angina pectoris (principal); J96.21 Acute and chronic respiratory failure with hypoxia; N17.9 Acute kidney failure, unspecified; G93.1 Anoxic brain damage, not elsewhere classified; I47.2 Ventricular tachycardia; I25.9 Chronic ischemic heart disease, unspecified; I46.2 Cardiac arrest due to underlying cardiac condition; R57.0 Cardiogenic shock; I49.01 Ventricular fibrillation; Z51.5 Encounter for palliative care; Z66 Do not resuscitate; I27.20 Pulmonary hypertension, unspecified; J44.9 Chronic obstructive pulmonary disease, unspecified; I11.0 Hypertensive heart disease with heart failure; I50.9 Heart failure, unspecified; I34.0 Nonrheumatic mitral (valve) insufficiency; E11.9 Type 2 diabetes mellitus without complications; I44.7 Left bundle-branch block, unspecified; F41.9 Anxiety disorder, unspecified; F32.9 Major depressive disorder, single episode, unspecified; G47.33 Obstructive sleep apnea (adult) (pediatric); K21.9 Gastro-esophageal reflux disease without esophagitis; E78.5 Hyperlipidemia, unspecified; M19.90 Unspecified osteoarthritis, unspecified site; Z79.82 Long term (current) use of aspirin; Z79.4 Long term (current) use of insulin; Z79.899 Other long term (current) drug therapy; Z99.89 Dependence on other enabling machines and devices; Z87.01 Personal history of pneumonia (recurrent); Z88.0 Allergy status to penicillin; Z88.1 Allergy status to other antibiotic agents; Z91.041 Radiographic dye allergy status; Z87.891 Personal history of nicotine dependence; Z86.79 Personal history of other diseases of the circulatory system; Z98.42 Cataract extraction status, left eye; Z98.41 Cataract extraction status, right eye; Z96.1 Presence of intraocular lens; Z82.49 Family history of ischemic heart disease and other diseases of the circulatory system; Z81.8 Family history of other mental and behavioral disorders; Z84.2 Family history of other diseases of the genitourinary system
CPT/HCPCS: 36415; 36600; 51702; 71045; 80053; 82550; 82553; 82805; 83735; 83880; 84484; 85025; 85610; 85730; 92950; 93005; 94002; 96374; 96375; 99285